=== PATIENT | female | born 1965 | race Caucasian/White ===

== ENCOUNTER 2021-01-27 10:27 | Outpatient (REF) | payer OTHER, SELFPAY ==
[2021-01-27 11:38] LABS: MANUAL DIFF FLAG NO
[2021-01-27 11:46] LABS: Basophils Percent Auto 0.3 % (0-2); Eosinophils Absolute Auto 0.1 X10*3/uL (0.0-0.4); Eosinophils Percent Auto 1.6 % (0-4); Hematocrit 44.2 % (37-47); Hemoglobin 14.4 g/dl (12.0-16.0); Imm Gran Abs Auto 0.02 X10*3/uL (0.00-0.03); Imm Gran Pct Auto 0.3 % (0.0-0.4); Lymphocytes Absolute Auto 2.3 X10*3/uL (1.2-4.9); Lymphocytes Percent Auto 33.4 % (20-40); Mean Corpuscular HGB Conc 32.6 g/dl (31.0-35.0); Mean Corpuscular Volume 82.9 fL (80-98); Monocytes Absolute Auto 0.4 X10*3/uL (0.1-1.2); Monocytes Percent Auto 5.4 % (2-11); Neutrophils Absolute Auto 4.1 X10*3/uL (2.0-8.3); Platelet Count 218 X10*3/uL (160-400); Red Blood Count 5.33 X10*6/uL (4.20-5.50); Red Cell Distribution Width 14.7 % (11.0-16.0); White Blood Count 6.9 X10*3/uL (4.8-10.8)
[2021-01-27 11:46] LABS: Appearance Urine CLEAR; Color Urine YELLOW; Glucose Urine UA NEG (NEG); Leukocyte Esterase Urine NEG (NEG); Nitrite Urine NEG (NEG); PH 5.5 (5.0-8.0); Specific Gravity - Urine 1.025 (1.005-1.025); Urine Blood NEG (NEG); Urine Ketones NEG (NEG); Urine Protein NEG (NEG-TRACE)
[2021-01-27 12:08] LABS: Alanine Aminotransferase 10 U/L (0-31); Alkaline Phosphatase 108 U/L (39-117); Anion Gap 15 (12-20); Aspartate Amino Transferase 13 U/L (5-31); Bilirubin Total 0.5 mg/dL (0.0-1.0); Blood Urea Nitrogen 17 mg/dL (9-16); Carbon Dioxide 26 mmol/L (22-29); Chloride 106 mmol/L (96-108); Cholesterol 240 mg/dL; Estimated Glomerular Filt Rate > 60; Glucose Fasting 86 mg/dL (60-99); HDL Cholesterol 45 mg/dL; LDL Cholesterol Calculated 176 mg/dl; Potassium 4.5 mmol/L (3.3-5.1); Sodium 142 mmol/L (135-145); Total Protein 7.2 g/dL (6.5-8.0); Triglycerides 99 mg/dL
[2021-01-27 12:19] LABS: Creatinine Urine 99.88 mg/dL
[2021-01-27 12:32] LABS: TSH reflex Free T4 0.98 uIU/mL (0.32-4.0); Vitamin D 25-OH Total 27.3 ng/mL (>30)
== END 2021-01-27 10:28 | disposition home or self-care (01) ==
LOC: HO.LAB 10:27
PROVIDERS: Absent Provider Internal Medicine Cardiovascular Disease; PCP Internal Medicine; Visit Provider Internal Medicine
DX: E11.22 Type 2 diabetes mellitus with diabetic chronic kidney disease (principal); K59.00 Constipation, unspecified; N18.2 Chronic kidney disease, stage 2 (mild); E66.01 Morbid (severe) obesity due to excess calories; Z68.42 Body mass index [BMI] 45.0-49.9, adult; E55.9 Vitamin D deficiency, unspecified; J45.20 Mild intermittent asthma, uncomplicated; Z79.4 Long term (current) use of insulin
CPT/HCPCS: 36415; 80053; 80061; 81003; 82043; 82306; 84443; 85025

== ENCOUNTER 2021-02-17 16:37 | Outpatient (REF) | payer OTHER, SELFPAY ==
--- NOTE | ~2021-02-17 | XR_ITS ---
EXAMINATION: XR SHOULDER, BILATERAL CLINICAL INFORMATION: Bilateral shoulder pain. COMPARISON: None TECHNIQUE: Right shoulder 3 views. Left shoulder 3 views. FINDINGS: RIGHT SHOULDER: There is severe loss of right glenohumeral shoulder joint space with moderate periarticular inferior spurring. There is loss of AC joint space as well with periarticular spurring. There is no visible acute fracture, dislocation or lytic process. The soft tissues are normal. LEFT SHOULDER: There is severe loss of left glenohumeral joint space with subchondral cystic changes. Mild loss of left AC joint is noted as well. Small subchondral cystic changes are seen. The soft tissues are normal. XR/XR shoulder RT min 2V IMPRESSION: Severe degenerative arthritic changes bilateral glenohumeral and AC joints. No visible fracture, dislocation or loose bodies. No bony erosive changes.
--- NOTE | ~2021-02-17 | XR_ITS ---
EXAMINATION: XR SHOULDER, BILATERAL CLINICAL INFORMATION: Bilateral shoulder pain. COMPARISON: None TECHNIQUE: Right shoulder 3 views. Left shoulder 3 views. FINDINGS: RIGHT SHOULDER: There is severe loss of right glenohumeral shoulder joint space with moderate periarticular inferior spurring. There is loss of AC joint space as well with periarticular spurring. There is no visible acute fracture, dislocation or lytic process. The soft tissues are normal. LEFT SHOULDER: There is severe loss of left glenohumeral joint space with subchondral cystic changes. Mild loss of left AC joint is noted as well. Small subchondral cystic changes are seen. The soft tissues are normal. XR/XR shoulder LT min 2V IMPRESSION: Severe degenerative arthritic changes bilateral glenohumeral and AC joints. No visible fracture, dislocation or loose bodies. No bony erosive changes.
== END 2021-02-17 16:38 | disposition home or self-care (01) ==
LOC: HO.XRAY 16:37
PROVIDERS: PCP Internal Medicine; Visit Provider Internal Medicine
DX: M25.511 Pain in right shoulder (principal); M25.512 Pain in left shoulder
CPT/HCPCS: 73030

== ENCOUNTER 2021-04-05 15:34 | Outpatient (REF) | payer OTHER, SELFPAY ==
--- NOTE | ~2021-04-05 | MM_ITS ---
EXAMINATION: MM SCREENING DIGITAL BREAST TOMOSYNTHESIS, BILATERAL CLINICAL INFORMATION: Screening. Asymptomatic. The lifetime risk of breast cancer based on the Tyrer-Cuzick Model is 6%. COMPARISON: Mammography: 08/11/2019, 07/10/2018 TECHNIQUE: Digital breast tomosynthesis is performed in both the craniocaudal and mediolateral oblique views along with computer-aided detection (CAD). Synthesized 2D images are generated from the tomosynthesis. Additional views are obtained: Right CC, right MLO x2, left exaggerated CC, left MLO. FINDINGS: The breasts are almost entirely fatty (ACR BI-RADS breast composition Category a). Background stromal markings are similar to prior studies. There is an intramammary node again seen mid 9:00 right breast. There is no significant mass or architectural abnormality. No abnormal calcifications. The axilla are unremarkable. No significant changes from prior exams. MM/MM tomosynthesis screening BI IMPRESSION: No mammographic evidence of malignancy. ASSESSMENT: BI-RADS 1: Negative RECOMMENDATION: Routine annual mammography screening. This patient's information was entered into a reminder system with a target due date for their next mammogram.
== END 2021-04-05 15:35 | disposition home or self-care (01) ==
LOC: HO.MAMMO 15:34
PROVIDERS: Visit Provider Internal Medicine
DX: Z12.31 Encounter for screening mammogram for malignant neoplasm of breast (principal)
CPT/HCPCS: 77063; 77067

== ENCOUNTER → 2021-07-04 19:24 | Outpatient (REF) | payer OTHER, MEDICAID, SELFPAY | LOC: HO.SL 19:24 | PROVIDERS: Visit Provider Internal Medicine | DX: G47.33 Obstructive sleep apnea (adult) (pediatric) (principal); Z99.89 Dependence on other enabling machines and devices | CPT/HCPCS: 95810 ==

== ENCOUNTER → 2021-07-21 13:56 | Outpatient (BNVA) | payer OTHER, SELFPAY | PROVIDERS: PCP Internal Medicine; Visit Provider Internal Medicine Pulmonary Disease | DX: G47.33 Obstructive sleep apnea (adult) (pediatric) (principal); G47.00 Insomnia, unspecified | CPT/HCPCS: 99202 ==

== ENCOUNTER 2021-11-10 10:23 | Outpatient (REF) | payer OTHER, SELFPAY ==
[2021-11-10 10:52] LABS: MANUAL DIFF FLAG NO
[2021-11-10 10:59] LABS: Basophils Percent Auto 0.3 % (0-2); Eosinophils Absolute Auto 0.1 X10*3/uL (0.0-0.4); Eosinophils Percent Auto 1.4 % (0-4); Hemoglobin 14.6 g/dl (12.0-16.0); Imm Gran Abs Auto 0.01 X10*3/uL (0.00-0.03); Imm Gran Pct Auto 0.1 % (0.0-0.4); Lymphocytes Absolute Auto 2.3 X10*3/uL (1.2-4.9); Lymphocytes Percent Auto 31.1 % (20-40); Mean Corpuscular HGB Conc 32.4 g/dl (31.0-35.0); Mean Corpuscular Hemoglobin 27.1 pg (27.0-33.0); Mean Corpuscular Volume 83.5 fL (80.0-98.0); Mean Platelet Volume 10.4 fL (9.4-12.3); Monocytes Absolute Auto 0.5 X10*3/uL (0.1-1.2); Monocytes Percent Auto 6.3 % (2-11); Neutrophils Absolute Auto 4.4 x10*3/uL (2.0-8.3); Neutrophils Percent Auto 60.8 % (45-73); Platelet Count 215 X10*3/uL (160-400); Red Blood Count 5.39 X10*6/uL (4.20-5.50); Red Cell Distribution Width 13.9 % (11.0-16.0); White Blood Count 7.3 X10*3/uL (4.8-10.8)
[2021-11-10 11:19] LABS: Estimated Average Glucose 103 mg/dL; Hemoglobin A1c % 5.2 %
[2021-11-10 11:30] LABS: Appearance Urine CLEAR; Color Urine YELLOW; Glucose Urine UA NEG (NEG); Nitrite Urine NEG (NEG); PH 5.5 (5.0-8.0); Specific Gravity - Urine >= 1.030 (1.005-1.025); Urine Blood NEG (NEG); Urine Ketones NEG (NEG); Urine Protein NEG (NEG-TRACE)
[2021-11-10 11:31] LABS: Leukocyte Esterase Urine NEG (NEG)
[2021-11-10 11:33] LABS: Erythrocyte Sedimentation Rate 28 MM/HR (0-20)
[2021-11-10 11:37] LABS: Alanine Aminotransferase 14 U/L (0-31); Albumin Level 3.8 g/dL (3.5-5.0); Alkaline Phosphatase 99 U/L (39-117); Anion Gap 11 (12-20); Aspartate Amino Transferase 17 U/L (5-31); Bilirubin Total 0.5 mg/dL (0.0-1.0); Blood Urea Nitrogen 11 mg/dL (9-16); Calcium 9.2 mg/dL (8.4-10.2); Carbon Dioxide 28 mmol/L (22-29); Chloride 109 mmol/L (96-108); Cholesterol 214 mg/dL; Estimated Glomerular Filt Rate > 60; Glucose Fasting 95 mg/dL (60-99); HDL Cholesterol 42 mg/dL; LDL Cholesterol Calculated 146 mg/dl; Potassium 4.3 mmol/L (3.3-5.1); Sodium 144 mmol/L (135-145); Total Protein 7.2 g/dL (6.5-8.0); Triglycerides 132 mg/dL
[2021-11-10 11:54] LABS: Creatinine Urine 110.24 mg/dL; Microalbum/Creatinine Ratio Ur 11.7 ug/mg cr
[2021-11-10 11:57] LABS: TSH reflex Free T4 1.08 uIU/mL (0.32-4.0); Vitamin D 25-OH Total 25.8 ng/mL (>30)
== END 2021-11-10 10:24 | disposition home or self-care (01) ==
LOC: HO.LAB 10:23
PROVIDERS: PCP Internal Medicine; Visit Provider Internal Medicine
DX: E11.22 Type 2 diabetes mellitus with diabetic chronic kidney disease (principal); N18.2 Chronic kidney disease, stage 2 (mild); E78.00 Pure hypercholesterolemia, unspecified; G47.33 Obstructive sleep apnea (adult) (pediatric); J45.20 Mild intermittent asthma, uncomplicated; K59.00 Constipation, unspecified; E66.01 Morbid (severe) obesity due to excess calories; Z68.42 Body mass index [BMI] 45.0-49.9, adult; E55.9 Vitamin D deficiency, unspecified; M25.511 Pain in right shoulder; M25.512 Pain in left shoulder; M89.49 Other hypertrophic osteoarthropathy, multiple sites; Z79.4 Long term (current) use of insulin
CPT/HCPCS: 36415; 80053; 80061; 81003; 82043; 82306; 83036; 84443; 85025; 85652

== ENCOUNTER 2022-01-27 09:00 | Outpatient (REF) | payer OTHER, SELFPAY ==
[2022-01-27 10:14] LABS: Estimated Average Glucose 103 mg/dL; Hemoglobin A1c % 5.2 %
[2022-01-27 10:24] LABS: Alanine Aminotransferase 12 U/L (0-31); Albumin Level 3.8 g/dL (3.5-5.0); Alkaline Phosphatase 91 U/L (39-117); Anion Gap 13 (12-20); Aspartate Amino Transferase 15 U/L (5-31); Bilirubin Total 0.6 mg/dL (0.0-1.0); Blood Urea Nitrogen 14 mg/dL (9-16); Calcium 8.9 mg/dL (8.4-10.2); Carbon Dioxide 26 mmol/L (22-29); Chloride 106 mmol/L (96-108); Cholesterol 238 mg/dL; Estimated Glomerular Filt Rate > 60; Glucose Fasting 92 mg/dL (60-99); HDL Cholesterol 41 mg/dL; LDL Cholesterol Calculated 171 mg/dl; Sodium 141 mmol/L (135-145); Triglycerides 132 mg/dL
== END 2022-01-27 09:01 | disposition home or self-care (01) ==
LOC: HO.LAB 09:00
PROVIDERS: PCP Internal Medicine; Visit Provider Internal Medicine
DX: E78.00 Pure hypercholesterolemia, unspecified (principal); E11.9 Type 2 diabetes mellitus without complications
CPT/HCPCS: 36415; 80053; 80061; 83036

== ENCOUNTER 2022-04-13 15:22 | Outpatient (REF) | payer OTHER, SELFPAY ==
--- NOTE | ~2022-04-13 | MM_ITS ---
EXAMINATION: MM SCREENING DIGITAL BREAST TOMOSYNTHESIS, BILATERAL CLINICAL INFORMATION: Screening. Asymptomatic. The lifetime risk of breast cancer based on the Tyrer-Cuzick Model is 7%. COMPARISON: Mammography: 04/05/2021, 08/11/2019, 07/10/2018 TECHNIQUE: Digital breast tomosynthesis is performed in both the craniocaudal and mediolateral oblique views along with computer-aided detection (CAD). Synthesized 2D images are generated from the tomosynthesis. Additional bilateral CC, bilateral MLO, and lateral right cleavage view are provided. FINDINGS: The breasts are almost entirely fatty (ACR BI-RADS breast composition Category a). There are no significant masses, abnormal calcifications, or other abnormalities. Background stromal markings are stable. There is incidental intramammary node mid 9:00 right breast. No architectural abnormality. The skin contours are smooth. MM/MM tomosynthesis screening BI IMPRESSION: No mammographic evidence of malignancy. ASSESSMENT: BI-RADS 1: Negative RECOMMENDATION: Routine annual mammography screening. This patient's information was entered into a reminder system with a target due date for their next mammogram.
== END 2022-04-13 15:23 | disposition home or self-care (01) ==
LOC: HO.MAMMO 15:22
PROVIDERS: Visit Provider Internal Medicine
DX: Z12.31 Encounter for screening mammogram for malignant neoplasm of breast (principal)
CPT/HCPCS: 77063; 77067

== ENCOUNTER 2022-07-07 09:53 | Outpatient (REF) | payer OTHER, SELFPAY ==
[2022-07-07 10:10] LABS: MANUAL DIFF FLAG NO
[2022-07-07 10:40] LABS: Basophils Percent Auto 0.6 % (0-2); Eosinophils Absolute Auto 0.1 X10*3/uL (0.0-0.4); Eosinophils Percent Auto 1.8 % (0-4); Hematocrit 46.2 % (37.0-47.0); Imm Gran Abs Auto 0.02 X10*3/uL (0.00-0.03); Imm Gran Pct Auto 0.3 % (0.0-0.4); Mean Corpuscular HGB Conc 32.5 g/dl (31.0-35.0); Mean Corpuscular Hemoglobin 27.3 pg (27.0-33.0); Mean Corpuscular Volume 84.2 fL (80.0-98.0); Mean Platelet Volume 10.8 fL (9.4-12.3); Monocytes Absolute Auto 0.4 X10*3/uL (0.1-1.2); Monocytes Percent Auto 6.1 % (2-11); Neutrophils Absolute Auto 4.5 x10*3/uL (2.0-8.3); Neutrophils Percent Auto 63.2 % (45-73); Platelet Count 210 X10*3/uL (160-400); Red Blood Count 5.49 X10*6/uL (4.20-5.50)
[2022-07-07 10:47] LABS: Estimated Average Glucose 105 mg/dL; Hemoglobin A1c % 5.3 %
[2022-07-07 10:50] LABS: Appearance Urine Clear; Color Urine Yellow; Glucose Urine UA Negative (Negative); Leukocyte Esterase Urine Negative (Negative); Nitrite Urine Negative (Negative); Urine Blood Negative (Negative); Urine Ketones Negative (Negative); Urine Protein Negative (Neg-Trace)
[2022-07-07 11:10] LABS: Creatinine Urine 87.23 mg/dL; Microalbum/Creatinine Ratio Ur 13.7 ug/mg cr
[2022-07-07 11:13] LABS: Alanine Aminotransferase 15 U/L (0-31); Alkaline Phosphatase 100 U/L (39-117); Anion Gap 16 (12-20); Aspartate Amino Transferase 15 U/L (5-31); Blood Urea Nitrogen 13 mg/dL (9-16); Calcium 9.5 mg/dL (8.4-10.2); Carbon Dioxide 26 mmol/L (22-29); Chloride 107 mmol/L (96-108); Cholesterol 190 mg/dL; Estimated Glomerular Filt Rate > 60; Glucose Fasting 95 mg/dL (60-99); HDL Cholesterol 44 mg/dL; LDL Cholesterol Calculated 126 mg/dl; Potassium 4.8 mmol/L (3.3-5.1); Sodium 144 mmol/L (135-145); Total Protein 7.3 g/dL (6.5-8.0); Triglycerides 101 mg/dL
[2022-07-07 11:31] LABS: Bilirubin Total 0.6 mg/dL (0.0-1.0)
[2022-07-07 11:36] LABS: TSH reflex Free T4 1.01 uIU/mL (0.32-4.0); Vitamin D 25-OH Total 24.6 ng/mL (>30)
== END 2022-07-07 09:54 | disposition home or self-care (01) ==
LOC: HO.LAB 09:53
PROVIDERS: PCP Internal Medicine; Visit Provider Internal Medicine
DX: E55.9 Vitamin D deficiency, unspecified (principal); I10 Essential (primary) hypertension; E78.00 Pure hypercholesterolemia, unspecified; E11.9 Type 2 diabetes mellitus without complications
CPT/HCPCS: 36415; 80053; 80061; 81003; 82043; 82306; 83036; 84443; 85025

== ENCOUNTER 2022-11-03 09:21 | Outpatient (REF) | payer OTHER, SELFPAY ==
[2022-11-03 10:02] LABS: MANUAL DIFF FLAG NO
[2022-11-03 11:08] LABS: Basophils Percent Auto 0.4 % (0-2); Eosinophils Absolute Auto 0.1 X10*3/uL (0.0-0.4); Eosinophils Percent Auto 1.4 % (0-4); Hemoglobin 14.5 g/dl (12.0-16.0); Imm Gran Abs Auto 0.01 X10*3/uL (0.00-0.03); Imm Gran Pct Auto 0.1 % (0.0-0.4); Lymphocytes Absolute Auto 2.2 X10*3/uL (1.2-4.9); Lymphocytes Percent Auto 30.8 % (20-40); Mean Corpuscular HGB Conc 32.2 g/dl (31.0-35.0); Mean Corpuscular Hemoglobin 27.3 pg (27.0-33.0); Mean Corpuscular Volume 84.6 fL (80.0-98.0); Mean Platelet Volume 10.9 fL (9.4-12.3); Monocytes Absolute Auto 0.4 X10*3/uL (0.1-1.2); Monocytes Percent Auto 6.2 % (2-11); Neutrophils Absolute Auto 4.3 x10*3/uL (2.0-8.3); Neutrophils Percent Auto 61.1 % (45-73); Platelet Count 209 X10*3/uL (160-400); Red Blood Count 5.32 X10*6/uL (4.20-5.50)
[2022-11-03 11:12] LABS: Estimated Average Glucose 103 mg/dL; Hemoglobin A1c % 5.2 %
[2022-11-03 11:16] LABS: Appearance Urine Clear; Color Urine Yellow; Glucose Urine UA Negative (Negative); Leukocyte Esterase Urine Negative (Negative); Nitrite Urine Negative (Negative); PH 5.5 (5.0-9.0); Urine Blood Negative (Negative); Urine Ketones Negative (Negative); Urine Protein Negative (Neg-Trace)
[2022-11-03 11:36] LABS: Creatinine Urine 80.44 mg/dL; Microalbum/Creatinine Ratio Ur 14.9 ug/mg cr
[2022-11-03 12:00] LABS: Alanine Aminotransferase 14 U/L (0-31); Albumin Level 3.8 g/dL (3.5-5.0); Alkaline Phosphatase 96 U/L (39-117); Anion Gap 15 (12-20); Aspartate Amino Transferase 17 U/L (5-31); Bilirubin Total 0.5 mg/dL (0.0-1.0); Blood Urea Nitrogen 18 mg/dL (9-16); Calcium 8.9 mg/dL (8.4-10.2); Carbon Dioxide 25 mmol/L (22-29); Chloride 107 mmol/L (96-108); Cholesterol 192 mg/dL; Estimated Glomerular Filt Rate > 60; Glucose Fasting 84 mg/dL (60-99); HDL Cholesterol 45 mg/dL; LDL Cholesterol Calculated 125 mg/dl; Potassium 4.8 mmol/L (3.3-5.1); Sodium 142 mmol/L (135-145); Triglycerides 113 mg/dL; Vitamin D 25-OH Total 23.7 ng/mL (>30)
== END 2022-11-03 09:22 | disposition home or self-care (01) ==
LOC: HO.LAB 09:21
PROVIDERS: PCP Internal Medicine; Visit Provider Internal Medicine
DX: E78.00 Pure hypercholesterolemia, unspecified (principal); E11.9 Type 2 diabetes mellitus without complications; E55.9 Vitamin D deficiency, unspecified; I10 Essential (primary) hypertension
CPT/HCPCS: 36415; 80053; 80061; 81003; 82043; 82306; 83036; 84443; 85025

== ENCOUNTER 2023-03-09 08:45 | Outpatient (REF) | payer OTHER, SELFPAY ==
[2023-03-09 08:59] LABS: MANUAL DIFF FLAG NO
[2023-03-09 09:16] LABS: Basophils Percent Auto 0.3 % (0-2); Eosinophils Absolute Auto 0.1 X10*3/uL (0.0-0.4); Eosinophils Percent Auto 1.5 % (0-4); Hematocrit 46.1 % (37.0-47.0); Hemoglobin 14.9 g/dl (12.0-16.0); Imm Gran Abs Auto 0.03 X10*3/uL (0.00-0.03); Imm Gran Pct Auto 0.3 % (0.0-0.4); Lymphocytes Absolute Auto 2.7 X10*3/uL (1.2-4.9); Lymphocytes Percent Auto 29.5 % (20-40); Mean Corpuscular HGB Conc 32.3 g/dl (31.0-35.0); Mean Corpuscular Hemoglobin 27.4 pg (27.0-33.0); Mean Corpuscular Volume 84.9 fL (80.0-98.0); Mean Platelet Volume 10.7 fL (9.4-12.3); Monocytes Absolute Auto 0.6 X10*3/uL (0.1-1.2); Monocytes Percent Auto 6.2 % (2-11); Neutrophils Absolute Auto 5.7 x10*3/uL (2.0-8.3); Neutrophils Percent Auto 62.2 % (45-73); Platelet Count 206 X10*3/uL (160-400); Red Blood Count 5.43 X10*6/uL (4.20-5.50); Red Cell Distribution Width 14.1 % (11.0-16.0); White Blood Count 9.2 X10*3/uL (4.8-10.8)
[2023-03-09 09:40] LABS: Estimated Average Glucose 103 mg/dL; Hemoglobin A1c % 5.2 %
[2023-03-09 09:46] LABS: Alanine Aminotransferase 15 U/L (0-31); Albumin Level 4.1 g/dL (3.5-5.0); Alkaline Phosphatase 102 U/L (39-117); Anion Gap 15 (12-20); Aspartate Amino Transferase 16 U/L (5-31); Bilirubin Total 0.6 mg/dL (0.0-1.0); Blood Urea Nitrogen 20 mg/dL (9-16); Calcium 9.3 mg/dL (8.4-10.2); Carbon Dioxide 27 mmol/L (22-29); Chloride 106 mmol/L (96-108); Cholesterol 209 mg/dL; Estimated Glomerular Filt Rate > 60; Glucose Fasting 93 mg/dL (60-99); HDL Cholesterol 48 mg/dL; LDL Cholesterol Calculated 134 mg/dl; Potassium 4.7 mmol/L (3.3-5.1); Sodium 143 mmol/L (135-145); Total Protein 7.6 g/dL (6.5-8.0); Triglycerides 136 mg/dL
[2023-03-09 10:08] LABS: TSH reflex Free T4 2.24 uIU/mL (0.32-4.0); Vitamin D 25-OH Total 33.3 ng/mL (>30)
[2023-03-09 10:14] LABS: Appearance Urine Clear; Color Urine Yellow; Glucose Urine UA Negative (Negative); Leukocyte Esterase Urine Negative (Negative); Nitrite Urine Negative (Negative); PH 5.5 (5.0-9.0); Urine Blood Negative (Negative); Urine Ketones Negative (Negative); Urine Protein Negative (Neg-Trace)
[2023-03-09 10:29] LABS: Creatinine Urine 85.75 mg/dL; Microalbum/Creatinine Ratio Ur 15.1 ug/mg cr
== END 2023-03-09 08:46 | disposition home or self-care (01) ==
LOC: HO.LAB 08:45
PROVIDERS: PCP Internal Medicine; Visit Provider Internal Medicine
DX: E78.00 Pure hypercholesterolemia, unspecified (principal); E11.9 Type 2 diabetes mellitus without complications; E55.9 Vitamin D deficiency, unspecified; I10 Essential (primary) hypertension; R30.0 Dysuria
CPT/HCPCS: 36415; 80053; 80061; 81003; 82043; 82306; 83036; 84443; 85025

== ENCOUNTER 2023-06-19 15:28 | Outpatient (REF) | payer OTHER, SELFPAY ==
--- NOTE | ~2023-06-19 | MM_ITS ---
EXAMINATION: MM SCREENING DIGITAL BREAST TOMOSYNTHESIS, BILATERAL CLINICAL INFORMATION: Screening. Asymptomatic. COMPARISON: Mammography: This study is compared with prior exams dating back to 2016. TECHNIQUE: Digital breast tomosynthesis is performed in both the craniocaudal and mediolateral oblique views along with computer-aided detection (CAD). Synthesized 2D images are generated from the tomosynthesis. FINDINGS: The breasts are almost entirely fatty (ACR BI-RADS breast composition Category a). There are no significant masses, abnormal calcifications, or other abnormalities. MM/MM tomosynthesis screening BI IMPRESSION: No mammographic evidence of malignancy. ASSESSMENT: BI-RADS BI-RADS 1 - Negative RECOMMENDATION: Routine annual mammography screening. 1 year F/U This examination should not preclude the clinical evaluation of a suspicious palpable abnormality. This patient's information was entered into a reminder system with a target due date for their next mammogram.
== END 2023-06-19 15:29 | disposition home or self-care (01) ==
LOC: HO.MAMMO 15:28
PROVIDERS: PCP Internal Medicine; Visit Provider Internal Medicine
DX: Z12.31 Encounter for screening mammogram for malignant neoplasm of breast (principal)
CPT/HCPCS: 77063; 77067

== ENCOUNTER → 2023-06-19 16:00 | Outpatient (BNV) | payer OTHER, SELFPAY | PROVIDERS: PCP Internal Medicine; Visit Provider Radiology Diagnostic Radiology | DX: Z12.31 Encounter for screening mammogram for malignant neoplasm of breast (principal) | CPT/HCPCS: 77063; 77067 ==

== ENCOUNTER 2023-07-06 09:53 | Outpatient (REF) | payer OTHER, SELFPAY ==
[2023-07-06 10:34] LABS: MANUAL DIFF FLAG NO
[2023-07-06 10:54] LABS: Basophils Percent Auto 0.4 % (0-2); Eosinophils Absolute Auto 0.1 X10*3/uL (0.0-0.4); Eosinophils Percent Auto 1.7 % (0-4); Hematocrit 45.4 % (37.0-47.0); Hemoglobin 14.5 g/dl (12.0-16.0); Imm Gran Abs Auto 0.02 X10*3/uL (0.00-0.03); Imm Gran Pct Auto 0.3 % (0.0-0.4); Lymphocytes Absolute Auto 2.1 X10*3/uL (1.2-4.9); Mean Corpuscular HGB Conc 31.9 g/dl (31.0-35.0); Mean Corpuscular Hemoglobin 27.3 pg (27.0-33.0); Mean Corpuscular Volume 85.3 fL (80.0-98.0); Mean Platelet Volume 10.7 fL (9.4-12.3); Monocytes Absolute Auto 0.6 X10*3/uL (0.1-1.2); Monocytes Percent Auto 7.8 % (2-11); Neutrophils Absolute Auto 4.2 x10*3/uL (2.0-8.3); Neutrophils Percent Auto 59.8 % (45-73); Platelet Count 211 X10*3/uL (160-400); Red Blood Count 5.32 X10*6/uL (4.20-5.50); Red Cell Distribution Width 14.6 % (11.0-16.0); White Blood Count 7.1 X10*3/uL (4.8-10.8)
[2023-07-06 11:06] LABS: Appearance Urine Clear; Color Urine Yellow; Glucose Urine UA Negative (Negative); Leukocyte Esterase Urine Trace (Negative); Nitrite Urine Negative (Negative); PH 5.5 (5.0-9.0); UMIC TRIGGER UACC YES; Urine Blood Negative (Negative); Urine Ketones Negative (Negative); Urine Protein Negative (Neg-Trace)
[2023-07-06 11:11] LABS: Estimated Average Glucose 108 mg/dL; Hemoglobin A1c % 5.4 % (<6.0)
[2023-07-06 11:12] LABS: Bacteria Urine Trace (None Seen); Hyaline Casts Urine 0-2 /LPF (0-2); RBC Urine 0-2 /HPF (0-2); WBC Urine 0-5 /HPF (0-5)
[2023-07-06 11:39] LABS: Creatinine Urine 120.31 mg/dL; Microalbum/Creatinine Ratio Ur 14.9 ug/mg cr (<30)
[2023-07-06 11:48] LABS: Alanine Aminotransferase 14 U/L (0-31); Alkaline Phosphatase 91 U/L (39-117); Anion Gap 16 (12-20); Aspartate Amino Transferase 17 U/L (5-31); Bilirubin Total 0.4 mg/dL (0.0-1.0); Blood Urea Nitrogen 16 mg/dL (9-16); Calcium 9.1 mg/dL (8.4-10.2); Carbon Dioxide 24 mmol/L (22-29); Chloride 109 mmol/L (96-108); Cholesterol 201 mg/dL (<200); Estimated Glomerular Filt Rate > 60; Glucose Fasting 103 mg/dL (60-99); HDL Cholesterol 47 mg/dL (>40); LDL Cholesterol Calculated 133 mg/dL (<100); Potassium 4.7 mmol/L (3.3-5.1); Sodium 144 mmol/L (135-145); Total Protein 7.8 g/dL (6.5-8.0); Triglycerides 108 mg/dL (<150)
[2023-07-06 11:52] LABS: TSH reflex Free T4 1.67 uIU/mL (0.32-4.0); Vitamin D 25-OH Total 38.6 ng/mL (>30)
== END 2023-07-06 09:54 | disposition home or self-care (01) ==
LOC: HO.LAB 09:53
PROVIDERS: PCP Internal Medicine; Visit Provider Internal Medicine
DX: E78.00 Pure hypercholesterolemia, unspecified (principal); E11.9 Type 2 diabetes mellitus without complications; I10 Essential (primary) hypertension; E55.9 Vitamin D deficiency, unspecified; R30.0 Dysuria
CPT/HCPCS: 36415; 80053; 80061; 81001; 81003; 82043; 82306; 82570; 83036; 84443; 85025

== ENCOUNTER 2023-07-09 15:34 | Outpatient (AMB) | payer OTHER, SELFPAY ==
[2023-07-09 15:44] VITALS: BP 122/80; PULSE 80; O2SAT 99; BMI 52.8
--- NOTE | 2023-07-09 15:44 | MHC.PC.OV ---
Vital Signs 07/09/23 15:44 Height 5 ft 3 in Weight 298 lb BMI 52.8 BP 122/80 Blood Pressure Location Lt brachial Position Sitting Pulse 80 Pulse Source Pulse Oximeter Pulse Oximetry (%) 99 Oxygen Delivery Method Room Air Intake Visit Reasons: [facility] - Urine and Kidney Infection Cashier Associate Required: No Accompanied by: Self / Same As Patient Allergies aspirin [ASA] Allergy (Unknown, Verified 07/09/23 18:56) RASH ,SWELLING atorvastatin Allergy (Unknown, Verified 07/09/23 18:56) constipation ibuprofen [Advil] Allergy (Unknown, Verified 07/09/23 18:56) Unknown Medication List - Last Reconciled 07/09/23 by Turner Mccormack MD albuterol sulfate 90 mcg/actuation (ProAir HFA) 2 inhalations inhalation QID PRN 30 days albuterol sulfate 90 mcg/actuation (Ventolin HFA) 1 inh inhalation QID PRN blood sugar diagnostic (FreeStyle Lite Strips) TEST 3 TIMES A DAY - E11.9 blood-glucose meter (FreeStyle [place] Lite kit) freestyle lite lancets cholecalciferol (vitamin D3) 25 mcg PO DAILY 90 days [CPAP Device and all related accessories As directed] [CPAP DEVICE and ALL RELATED ACCESSORIES As directed - Pressure Settings to start at 4 cm and gradually increase to 14 cm] Humalog KwikPen Insulin (insulin lispro) 1 sliding scale dose subcut QIDACHS NS hydrocortisone 2.5% 1 appl topical BID PRN insulin glargine (Lantus Solostar U-100 Insulin) 10 units (0.1 mL) subcut DAILY insulin syr/ndl U100 half mayuri As directed lancets (FreeStyle Lancets) As directed 3 times a day melatonin 10 mg PO BEDTIME PRN 30 days Novolog FlexPen U-100 Insulin (insulin aspart U-100) Inject DIRECTED (dosed according to sliding scale) 4 times a day with meals and at bedtime PER SLIDING SCALE 125 - 150 2 units Insulin subq 151 - 200 4 units Insulin subq 201 - 250 6 units Insulin subq 251 - 300 8 units Insulin subq 301 - 350 10 units Insulin subq 351 - 400 12 units Insulin subq 30 days NS olopatadine 0.2% (Pataday Once Daily Relief) 1 drp ophthalmic (eye) DAILY pantoprazole 40 mg PO DAILY 90 days pen needle, diabetic USE 4 TIMES A DAY semaglutide (Ozempic) 0.5 mg (0.4 mL) subcut QWEEK 12 weeks [SHOWER CHAIR (extra-large/heavy duty) As directed] simvastatin 20 mg PO BEDTIME 90 days tizanidine 4 mg PO Q8H PRN 10 days tramadol 50 mg PO TID PRN 30 days Tobacco use date assessed: 07/09/23 Dental Screening Dental Screen Date: 07/09/23 Did you have a dental visit in the last 12 months?: Yes Did you have a dental problem in the last 6 months where you did not have access to dental care?: No Was dental information given to patient?: Patient has dentist HPI [facility] - Urine and Kidney Infection HPI Details Patient comes in today for her HDF follow up visit States that she was supposed to come in for her HDF follow up visit earlier this month but was told that she did not have an appointment scheduled when she came in then and could not get in until today She was admitted to [facility] early last month from 05/18/23 to 05/21/23 for acute pyelonephritis and sepsis secondary to UTI when she presented to the ER there with worsening urinary tract symptoms She was initially started on IV Abx and this was later transitioned to oral Abx preceding her discharge from the hospital, when her symptoms gradually improved with medical management She was eventually discharged home on Augmentin 875 mg BID x 7 days, which she completed without any issues States that she has been feeling well since with no other acute problems She currently denies any headaches or dizziness; denies any fever Denies any chest pains, no SOB No nausea/vomiting, no abdominal pain No change in bowel habits noted and she denies any acute urinary symptoms lately Had her follow up labs done a few days ago - to discuss her results States that she was supposed to have them done a little later before her next month's appointment but as her appointment is just about 2 weeks away, is hoping that we can just combine her 2 appointments together for today [facility] Medical History Morbid obesity with BMI of 50.0-59.9, adult GERD without esophagitis Primary osteoarthritis of shoulders, bilateral Obstructive sleep apnea Pure hypercholesterolemia Morbid obesity with BMI of 45.0-49.9, adult Anxiety Constipation Vitamin D deficiency Asthma Osteoarthritis Type 2 diabetes mellitus with diabetic chronic kidney disease (Unknown) Diabetes Surgical History H/O total knee replacement Total knee replacement status History of endometrial ablation History of hand surgery H/O right knee surgery Family History Father Motor vehicle accident Mother Liver cancer Social History Housing: Apartment Alcohol intake: never Patient Tobacco Use Status: Never used Tobacco e-Cigarette/Vaping Use: Never Used Second Hand Smoke Exposure: Yes service: No Current occupational status: disabled Cognitive needs: No Hearing needs: No Vision needs: No Questionnaire PHQ-9 Over the last 2 weeks, how often have you been bothered by any of the following problems? 1. Little interest or pleasure in doing things: not at all 2. Feeling down, depressed, or hopeless: not at all 3. Trouble falling or staying asleep, or sleeping too much: not at all 4. Feeling tired or having little energy: not at all 5. Poor appetite or overeating: not at all 6. Feeling bad about yourself - or that you are a failure or have let yourself or your family down: not at all 7. Trouble concentrating on things, such as reading the newspaper or watching television: not at all 8. Moving or speaking so slowly that other people could have noticed. Or the opposite - being so fidgety or restless that you have been moving around a lot more than usual: not at all 9. Thoughts that you would be better off or of hurting yourself in some way: not at all Total score: 0 Depression Screening Interpretation: Negative 61002 - PHQ-9 Billing: Yes Source: Developed by Drs. Garland Whitaker, Shana Thomas, Josue Thompson and colleagues, with an educational aravind from [employer]. Thrive Questionnaire Date Thrive assessed: 07/09/23 I am a: Patient What is your living situation today?: I have a steady place to live Within the past 12 months, did the food you bought not last and you didn't have the money to get more?: Never true Within the past 12 months, did you worry whether your food would run out before you got money to buy more?: Never true Do you have trouble paying for medicines?: No Do you have trouble getting transportation to medical appointments?: No Do you have trouble paying your heating and electricity bill?: No Do you have trouble taking care of your child, family member or friend?: No Do you have trouble with day-to-day activities such as bathing, preparing meals, shopping, managing finances, etc.?: No Are you currently unemployed and looking for a job?: No Are you interested in more education?: No Please select the resources that you would like help with: None Currently or been in a relationship where the following occur: no concerns reported AUDIT C Alcohol Use Questionnaire (AUDIT-C) 1. How often do you have a drink containing alcohol?: Never 3. How often do you have six or more drinks on one occasion?: Never Total Score: 0 Score Reviewed/Action Taken: Yes JOHN-7 AMB Questionnaire JOHN-7 Date JOHN - 7 assessed: 07/09/23 Feeling nervous, anxious, or on edge: 0 = Not at all Not being able to stop or control worryin = Not at all Worrying too much about different things: 0 = Not at all Trouble relaxin = Not at all Being so restless that it is hard to sit still: 0 = Not at all Becoming easily annoyed or irritable: 0 = Not at all Feeling afraid as if something awful might happen: 0 = Not at all Total JOHN-7 score (0-4 normal; 5-9 mild; 10-14 moderate; 15-21 severe): 0 Source: Developed by Drs. Garland Whitaker, Shana Thomas, Josue Thompson and colleagues, with an educational aravind from [employer]. Review of Systems Const Denies chills, Denies fatigue, Denies fever(s) and Denies headache(s) ENT Denies dysphagia, Denies dizziness, Denies otalgia, Denies headache(s), Denies neck pain, Denies odynophagia and Denies sore throat Card Denies chest pain, Denies palpitations and Denies dyspnea Resp Denies cough and Denies dyspnea GI Denies abdominal pain, Denies constipation, Denies dysphagia, Denies heartburn, Denies diarrhea, Denies nausea, Denies odynophagia and Denies vomiting Denies difficulty voiding, Denies nocturia, Denies dysuria, Denies urinary hesitancy and Denies urinary urgency Musc Reports back pain, Reports arthralgias (knee - on and off; both shoulders - slightly worse on the left side), Reports limited range of motion (of both shoulders) and Denies neck pain Skin/Breast Denies rash Neuro Denies dizziness and Denies headache(s) Endo Denies fatigue and Denies palpitations Physical exam (Primary Care) Vital Signs: Last Vital Signs Pulse 80 07/09/23 15:44 BP 122/80 07/09/23 15:44 Pulse Ox 99 07/09/23 15:44 Oxygen Delivery Method Room Air 07/09/23 15:44 BMI result Body Mass Index 52.8 Tobacco/Smoking Status: Tobacco use Status Tobacco use date assessed 07/09/23 07/09/23 15:46 Patient Tobacco Use Status Never used Tobacco 07/09/23 15:46 e-Cigarette/Vaping Use Never Used 07/09/23 15:46 PHQ-9: PHQ-9 Score PHQ-9: Total score 0 07/09/23 17:17 Depression Screening Interpretation: Negative Thrive Assessment: Date of Thrive Assessment Date Thrive assessed 07/09/23 07/09/23 15:46 Currently or been in a relationship where the following occur: no concerns reported Const General: no acute distress and alert HENMT Ears: TM's normal bilaterally and EAC's normal Throat: Yes posterior oropharynx normal and Yes tonsils normal (no TP congestion noted) Neck Neck: Yes no lymphadenopathy and Yes supple Resp Auscultation: clear to auscultation bilaterally, no rales and no wheezes Cardio Rate: regular rate Rhythm: regular rhythm Heart sounds: no murmurs GI Inspection: Yes Abdominal panniculus present Palpation (GI): Soft to palpation and nontender Auscultation: normal bowel sounds Back/Spine/Pelvis Thoracic/Lumbar Spine: No lumbar spinal tenderness Skin Rashes: no rashes Extrem General: Yes no clubbing, cyanosis or edema Right upper extremity: shoulder/upper arm Details: tenderness Location: of the A-C joint and normal ROM Left upper extremity: shoulder/upper arm Details: tenderness Location: of the A-C joint; ROM limited Right lower extremity: knee Details: tenderness; no swelling Results Reviewed Results Reviewed: Laboratory Tests 07/06/23 07/06/23 07/06/23 10:10 10:10 10:25 WBC 7.1 Hgb 14.5 Hct 45.4 Plt Count 211 Sodium 144 Potassium 4.7 Creatinine 0.78 Estimated GFR > 60 Fasting Glucose 103 H Hemoglobin A1c % 5.4 Calcium 9.1 AST ALT 14 Triglycerides 108 Cholesterol 201 H LDL Cholesterol, Calc 133 H HDL Cholesterol 47 25-OH Vitamin D Total 38.6 TSH 1.67 Ur Specific [place] 1.020 Urine Protein Negative Urine Glucose (UA) Negative Urine Blood Negative Microalb/Creat Ratio 14.9 07/06/23 10:25 WBC Hgb Hct Plt Count Sodium Potassium Creatinine Estimated GFR Fasting Glucose Hemoglobin A1c % Calcium AST 17 ALT Triglycerides Cholesterol LDL Cholesterol, Calc HDL Cholesterol 25-OH Vitamin D Total TSH Ur Specific [place] Urine Protein Urine Glucose (UA) Urine Blood Microalb/Creat Ratio Assessment and Plan Assessment & Plan (1) Pyelonephritis: Code(s): N12 - Tubulo-interstitial nephritis, not specified as acute or chronic Plan: Resolved - S/P Abx Tx Her recent urinalysis done a few days ago shows NO evidence of infection Patient is encouraged to continue to increase her oral fluid intake regularly (2) Pure hypercholesterolemia: Code(s): E78.00 - Pure hypercholesterolemia, unspecified Plan: Results of her labs done a few days ago reviewed and discussed with patient - advised that her cholesterol levels have improved slightly from previous BUT they are not yet at goal Reinforced low cholesterol diet Continue Simvastatin 20 mg QD for now; discussed option of increasing her dosage later on if necessary but patient is hesitant to do this considering her problems with Atorvastatin in the past Will recheck her labs and fasting lipids in 3 months for follow up (3) Type 2 diabetes mellitus with diabetic chronic kidney disease: Onset Date: Unknown Code(s): E11.22 - Type 2 diabetes mellitus with diabetic chronic kidney disease Qualifiers: Chronic kidney disease stage: stage 2 (mild) Diabetes mellitus longterm insulin use: with intermediate project manager use Qualified Code(s): E11.22 - Type 2 diabetes mellitus with diabetic chronic kidney disease; N18.2 - Chronic kidney disease, stage 2 (mild); Z79.4 - intermediate designer (current) use of insulin Plan: HgbA1c was at 5.4% on her labs done a few days ago (was at 5.2% a few months ago) - goal is < 7.0% Reinforced diabetic diet Continue Lantus 20 units SQ Q HS, Ozempic 0.5 mg SQ once a week and Humalog 3 times a day with meals per sliding scale although patient states that she has not needed to take any Humalog for a while now as her blood sugar has remained very well-controlled for several months (4) Asthma: Code(s): J45.909 - Unspecified asthma, uncomplicated Qualifiers: Asthma complication type: uncomplicated Asthma persistence: intermittent Asthma severity: mild Qualified Code(s): J45.20 - Mild intermittent asthma, uncomplicated Plan: Stable - continue ProAir HFA 2 puffs 4 times a day as needed (5) Obstructive sleep apnea: Code(s): G47.33 - Obstructive sleep apnea (adult) (pediatric) Plan: Continue using her CPAP device when sleeping at night Follow up with sleep medicine as scheduled (6) Osteoarthritis: Comment: involving multiple joints Code(s): M19.90 - Unspecified osteoarthritis, unspecified site Qualifiers: Osteoarthritis location: multiple joints Osteoarthritis type: primary Qualified Code(s): M89.49 - Other hypertrophic osteoarthropathy, multiple sites Plan: S/P total right knee arthroplasty on 07/18/2020 and S/P rehab/physical therapy Shoulder x-rays done a couple of years ago revealed (+) significant/severe OA changes in both shoulders Continue Tramadol 50 mg TID PRN for pain Follow-up with Orthopedics as scheduled (7) GERD without esophagitis: Code(s): K21.9 - Gastro-esophageal reflux disease without esophagitis Plan: Dietary restrictions reinforced Continue Pantoprazole 40 mg QD (8) Vitamin D deficiency: Code(s): E55.9 - Vitamin D deficiency, unspecified Plan: Continue Vitamin D3 1000 units QD (9) Constipation: Code(s): K59.00 - Constipation, unspecified Qualifiers: Constipation type: unspecified constipation type Qualified Code(s): K59.00 - Constipation, unspecified Plan: Reinforced increased oral fluids and dietary fiber Continue MiraLax 17 gm QD and Metamucil 2 capsules TID PRN (10) Symptomatic abdominal panniculus: Code(s): E65 - Localized adiposity Plan: Per patient's request, she was referred to [facility] for consideration for panniculectomy previously and she is still awaiting appointment to be seen there Have again cautioned patient that this may not be approved by her insurance; have also advised patient that insurance approval for panniculectomy will often require evidence that she has gone through most of the prerequisite attempts to lose weight and also proven documentation that her significant pannus is associated with a lot of symptoms that are otherwise not correctable with other more conventional measures (11) Anxiety: Code(s): F41.9 - Anxiety disorder, unspecified Plan: Continue Clonazepam 0.5 mg 1/2 to 1 tablet QD PRN and Fluoxetine 10 mg Q AM (12) Morbid obesity with BMI of 50.0-59.9, adult: Code(s): E66.01 - Morbid (severe) obesity due to excess calories; Z68.43 - Body mass index [BMI] 50.0-59.9, adult Plan: Reinforced diet/exercise as tolerated/lose weight Plan Follow up in 3 months Orders: Orders Complete Blood Count Auto Diff 3 Months I10 - Essential (primary) hypertension Hemoglobin A1c 3 Months E11.9 - Type 2 diabetes mellitus without complications Microalbumin, Random (w Creat) 3 Months E11.9 - Type 2 diabetes mellitus without complications TSH reflex Free T4 3 Months E78.00 - Pure hypercholesterolemia, unspecified UA CC w/rflx Micro + Cult 3 Months R30.0 - Dysuria Comprehensive [place]. Panel Fast 3 Months E78.00 - Pure hypercholesterolemia, unspecified Lipid Panel 3 Months E78.00 - Pure hypercholesterolemia, unspecified Vitamin D 25-OH Total 3 Months E55.9 - Vitamin D deficiency, unspecified Coding Level of Care Code Est Pt Level 4 (31442) Diagnoses Pyelonephritis N12 Pure hypercholesterolemia E78.00 Type 2 diabetes mellitus with stage 2 chronic kidney disease, with long-term current use of insulin E11.22; N18.2; Z79.4 Chronic kidney disease stage: stage 2 (mild) Diabetes mellitus longterm insulin use: with intermediate project manager use Mild intermittent asthma without complication J45.20 Asthma complication type: uncomplicated Asthma persistence: intermittent Asthma severity: mild Obstructive sleep apnea G47.33 Primary osteoarthritis involving multiple joints M89.49 Osteoarthritis location: multiple joints Osteoarthritis type: primary GERD without esophagitis K21.9 Vitamin D deficiency E55.9 Constipation, unspecified constipation type K59.00 Constipation type: unspecified constipation type Symptomatic abdominal panniculus E65 Anxiety F41.9 Morbid obesity with BMI of 50.0-59.9, adult E66.01; Z68.43
== END 2023-07-09 17:28 | disposition home or self-care (01) ==
PROVIDERS: PCP Internal Medicine; Visit Provider Internal Medicine
DX: E11.22 Type 2 diabetes mellitus with diabetic chronic kidney disease (principal); N18.2 Chronic kidney disease, stage 2 (mild); Z79.4 Long term (current) use of insulin; J45.20 Mild intermittent asthma, uncomplicated; N12 Tubulo-interstitial nephritis, not specified as acute or chronic; K21.9 Gastro-esophageal reflux disease without esophagitis; E55.9 Vitamin D deficiency, unspecified; F41.9 Anxiety disorder, unspecified; E66.01 Morbid (severe) obesity due to excess calories; E78.00 Pure hypercholesterolemia, unspecified; Z68.43 Body mass index [BMI] 50.0-59.9, adult; G47.33 Obstructive sleep apnea (adult) (pediatric)
CPT/HCPCS: 99214

== ENCOUNTER 2023-10-12 09:31 | Outpatient (REF) | payer OTHER, SELFPAY ==
[2023-10-12 10:04] LABS: MANUAL DIFF FLAG NO
[2023-10-12 10:08] LABS: Basophils Percent Auto 0.4 % (0-2); Eosinophils Absolute Auto 0.1 X10*3/uL (0.0-0.4); Eosinophils Percent Auto 1.7 % (0-4); Hematocrit 46.5 % (37.0-47.0); Imm Gran Abs Auto 0.02 X10*3/uL (0.00-0.03); Imm Gran Pct Auto 0.3 % (0.0-0.4); Lymphocytes Absolute Auto 1.8 X10*3/uL (1.2-4.9); Mean Corpuscular HGB Conc 32.3 g/dl (31.0-35.0); Mean Corpuscular Hemoglobin 27.3 pg (27.0-33.0); Mean Corpuscular Volume 84.5 fL (80.0-98.0); Mean Platelet Volume 10.5 fL (9.4-12.3); Monocytes Absolute Auto 0.4 X10*3/uL (0.1-1.2); Monocytes Percent Auto 5.9 % (2-11); Neutrophils Absolute Auto 4.6 x10*3/uL (2.0-8.3); Neutrophils Percent Auto 65.7 % (45-73); Platelet Count 204 X10*3/uL (160-400); White Blood Count 7.1 X10*3/uL (4.8-10.8)
[2023-10-12 10:32] LABS: Appearance Urine Clear; Color Urine Yellow; Glucose Urine UA Negative (Negative); Leukocyte Esterase Urine Negative (Negative); Nitrite Urine Negative (Negative); PH 6.5 (5.0-9.0); Urine Blood Negative (Negative); Urine Ketones Negative (Negative); Urine Protein Negative (Neg-Trace)
[2023-10-12 10:34] LABS: Alanine Aminotransferase 15 U/L (0-31); Albumin Level 3.9 g/dL (3.5-5.0); Alkaline Phosphatase 94 U/L (39-117); Anion Gap 15 (12-20); Aspartate Amino Transferase 16 U/L (5-31); Bilirubin Total 0.4 mg/dL (0.0-1.0); Blood Urea Nitrogen 14 mg/dL (9-16); Calcium 9.1 mg/dL (8.4-10.2); Carbon Dioxide 25 mmol/L (22-29); Chloride 106 mmol/L (96-108); Cholesterol 235 mg/dL (<200); Estimated Glomerular Filt Rate > 60; Glucose Fasting 96 mg/dL (60-99); HDL Cholesterol 48 mg/dL (>40); LDL Cholesterol Calculated 162 mg/dL (<100); Potassium 4.1 mmol/L (3.3-5.1); Sodium 142 mmol/L (135-145); Total Protein 7.9 g/dL (6.5-8.0); Triglycerides 127 mg/dL (<150)
[2023-10-12 10:43] LABS: Estimated Average Glucose 105 mg/dL; Hemoglobin A1c % 5.3 % (<6.0)
[2023-10-12 10:51] LABS: Creatinine Urine 120.31 mg/dL; Microalbum/Creatinine Ratio Ur 25.7 ug/mg cr (<30)
== END 2023-10-12 09:32 | disposition home or self-care (01) ==
LOC: HO.LAB 09:31
PROVIDERS: PCP Internal Medicine; Visit Provider Internal Medicine
DX: I10 Essential (primary) hypertension (principal); E78.00 Pure hypercholesterolemia, unspecified; E11.9 Type 2 diabetes mellitus without complications; R30.0 Dysuria; E55.9 Vitamin D deficiency, unspecified
CPT/HCPCS: 36415; 80053; 80061; 81003; 82043; 82306; 82570; 83036; 84443; 85025

== ENCOUNTER 2024-02-17 15:59 | Outpatient (AMB) | payer OTHER, SELFPAY ==
--- NOTE | 2024-02-17 16:04 | MHC.PC.OV ---
Vital Signs 02/17/24 16:06 Height 5 ft 3 in Weight 298 lb 4 oz BMI 52.8 BP 120/64 Blood Pressure Location Lt brachial Position Sitting Pulse 82 Pulse Source Pulse Oximeter Pulse Oximetry (%) 95 Oxygen Delivery Method Room Air Intake Visit Reasons: Lab review Intake Note: Patient is here to follow up on DM, MALI, Asthma. 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 Accompanied by: Spouse Allergies aspirin [ASA] Allergy (Unknown, Verified 02/17/24 16:29) RASH ,SWELLING atorvastatin Allergy (Unknown, Verified 02/17/24 16:29) constipation ibuprofen [Advil] Allergy (Unknown, Verified 02/17/24 16:29) Unknown Medication List - Last Reconciled 02/17/24 by Turner Mccormack MD albuterol sulfate 90 mcg/actuation (ProAir HFA) 2 inhalations inhalation QID PRN 30 days albuterol sulfate 90 mcg/actuation (Ventolin HFA) 1 inh inhalation QID PRN blood sugar diagnostic (FreeStyle Lite Strips) TEST 3 TIMES A DAY - E11.9 blood-glucose meter (FreeStyle [place] Lite kit) freestyle lite lancets cholecalciferol (vitamin D3) 25 mcg PO DAILY 90 days [CPAP Device and all related accessories As directed] [CPAP DEVICE and ALL RELATED ACCESSORIES As directed - Pressure Settings to start at 4 cm and gradually increase to 14 cm] Humalog KwikPen Insulin (insulin lispro) 1 sliding scale dose subcut QIDACHS NS hydrocortisone 2.5% 1 appl topical BID PRN insulin glargine (Lantus Solostar U-100 Insulin) 10 units (0.1 mL) subcut DAILY insulin syr/ndl U100 half mayuri As directed lancets (FreeStyle Lancets) As directed 3 times a day melatonin 10 mg PO BEDTIME PRN 30 days Novolog FlexPen U-100 Insulin (insulin aspart U-100) Inject DIRECTED (dosed according to sliding scale) 4 times a day with meals and at bedtime PER SLIDING SCALE 125 - 150 2 units Insulin subq 151 - 200 4 units Insulin subq 201 - 250 6 units Insulin subq 251 - 300 8 units Insulin subq 301 - 350 10 units Insulin subq 351 - 400 12 units Insulin subq 30 days NS pantoprazole 40 mg PO DAILY 90 days pen needle, diabetic USE 4 TIMES A DAY semaglutide (Ozempic) 0.5 mg (0.374 mL) subcut QWEEK 12 weeks [SHOWER CHAIR (extra-large/heavy duty) As directed] simvastatin 20 mg PO BEDTIME 90 days tizanidine 4 mg PO Q8H PRN 10 days tramadol 50 mg PO TID PRN 30 days Tobacco use date assessed: 02/17/24 Dental Screening Dental Screen Date: 02/17/24 Did you have a dental visit in the last 12 months?: Yes Did you have a dental problem in the last 6 months where you did not have access to dental care?: No Was dental information given to patient?: Patient has dentist HPI Lab review HPI Details Patient comes in today for her follow up visit States that she feels okay She was last seen in June 2023 and her original follow up appt on 10/21/2023 was canceled and she was rescheduled to today She last had her labs done back in September 2023 and has not had any other follow up labs done since She denies any headaches or dizziness Denies any chest pains, no SOB No nausea/vomiting, no abdominal pain No change in bowel habits noted States that she needs most of her Rx refilled today [facility] [place] Medical History Morbid obesity with BMI of 50.0-59.9, adult GERD without esophagitis Primary osteoarthritis of shoulders, bilateral Obstructive sleep apnea Pure hypercholesterolemia Morbid obesity with BMI of 45.0-49.9, adult Anxiety Constipation Vitamin D deficiency Asthma Osteoarthritis Type 2 diabetes mellitus with diabetic chronic kidney disease (Unknown) Diabetes Surgical History H/O total knee replacement Total knee replacement status History of endometrial ablation History of hand surgery H/O right knee surgery Family History Father Motor vehicle accident Mother Liver cancer Social History Housing: Apartment Alcohol intake: never Patient Tobacco Use Status: Never used Tobacco e-Cigarette/Vaping Use: Never Used Second Hand Smoke Exposure: Yes service: No Current occupational status: disabled Cognitive needs: No Hearing needs: No Vision needs: No Questionnaire PHQ-9 Over the last 2 weeks, how often have you been bothered by any of the following problems? 1. Little interest or pleasure in doing things: not at all 2. Feeling down, depressed, or hopeless: not at all 3. Trouble falling or staying asleep, or sleeping too much: not at all 4. Feeling tired or having little energy: not at all 5. Poor appetite or overeating: not at all 6. Feeling bad about yourself - or that you are a failure or have let yourself or your family down: not at all 7. Trouble concentrating on things, such as reading the newspaper or watching television: not at all 8. Moving or speaking so slowly that other people could have noticed. Or the opposite - being so fidgety or restless that you have been moving around a lot more than usual: not at all 9. Thoughts that you would be better off or of hurting yourself in some way: not at all Total score: 0 Depression Screening Interpretation: Negative Depression Screening Done: Yes 91844 - PHQ-9 Billing: Yes Source: Developed by Drs. Garland Whitaker, Shana Thomas, Josue Thompson and colleagues, with an educational aravind from [employer]. Thrive Questionnaire Date Thrive assessed: 02/17/24 I am a: Patient What is your living situation today?: I have a steady place to live Within the past 12 months, did the food you bought not last and you didn't have the money to get more?: Never true Within the past 12 months, did you worry whether your food would run out before you got money to buy more?: Never true Do you have trouble paying for medicines?: No Do you have trouble getting transportation to medical appointments?: No Do you have trouble paying your heating and electricity bill?: No Do you have trouble taking care of your child, family member or friend?: No Do you have trouble with day-to-day activities such as bathing, preparing meals, shopping, managing finances, etc.?: No Are you currently unemployed and looking for a job?: No Are you interested in more education?: No Currently or been in a relationship where the following occur: no concerns reported THRIVE Score: 0 AUDIT C Alcohol Use Questionnaire (AUDIT-C) 1. How often do you have a drink containing alcohol?: Never 3. How often do you have six or more drinks on one occasion?: Never Total Score: 0 Score Reviewed/Action Taken: Yes JOHN-7 AMB Questionnaire JOHN-7 Date JOHN - 7 assessed: 02/17/24 Feeling nervous, anxious, or on edge: 0 = Not at all Not being able to stop or control worryin = Not at all Worrying too much about different things: 0 = Not at all Trouble relaxin = Not at all Being so restless that it is hard to sit still: 0 = Not at all Becoming easily annoyed or irritable: 0 = Not at all Feeling afraid as if something awful might happen: 0 = Not at all Total JOHN-7 score (0-4 normal; 5-9 mild; 10-14 moderate; 15-21 severe): 0 Source: Developed by Drs. Garland Whitaker, Shana Thomas, Josue Thompson and colleagues, with an educational aravind from [employer]. Review of Systems Const Denies chills, Denies fatigue, Denies fever(s) and Denies headache(s) ENT Denies dysphagia, Denies dizziness, Denies otalgia, Denies headache(s), Denies neck pain, Denies odynophagia and Denies sore throat Card Denies chest pain, Denies palpitations and Denies dyspnea Resp Denies cough and Denies dyspnea GI Denies abdominal pain, Denies constipation, Denies dysphagia, Denies heartburn, Denies diarrhea, Denies nausea, Denies odynophagia and Denies vomiting Denies difficulty voiding, Denies nocturia, Denies dysuria, Denies urinary hesitancy and Denies urinary urgency Musc Reports back pain, Reports arthralgias (knee - on and off; both shoulders - slightly worse on the left side), Reports limited range of motion (of both shoulders) and Denies neck pain Skin/Breast Reports alopecia (states that her hair has been falling out more lately), Denies pruritus and Denies rash Neuro Denies dizziness and Denies headache(s) Endo Denies fatigue and Denies palpitations Physical exam (Primary Care) Vital Signs: Last Vital Signs Pulse 82 02/17/24 16:06 BP 120/64 02/17/24 16:06 Pulse Ox 95 02/17/24 16:06 Oxygen Delivery Method Room Air 02/17/24 16:06 BMI result Body Mass Index 52.8 Tobacco/Smoking Status: Tobacco use Status Tobacco use date assessed 02/17/24 02/17/24 16:06 Patient Tobacco Use Status Never used Tobacco 02/17/24 16:06 e-Cigarette/Vaping Use Never Used 02/17/24 16:06 PHQ-9: PHQ-9 Score PHQ-9: Total score 0 02/17/24 16:34 Depression Screening Interpretation: Negative Thrive Assessment: Date of Thrive Assessment Date Thrive assessed 02/17/24 02/17/24 16:06 Currently or been in a relationship where the following occur: no concerns reported Const General: no acute distress and alert HENMT Ears: TM's normal bilaterally and EAC's normal Throat: Yes posterior oropharynx normal and Yes tonsils normal (no TP congestion noted) Neck Neck: Yes no lymphadenopathy and Yes supple Thyroid: Thyroid normal Resp Auscultation: clear to auscultation bilaterally, no rales and no wheezes Cardio Rate: regular rate Rhythm: regular rhythm Heart sounds: no murmurs GI Palpation (GI): Soft to palpation and nontender Auscultation: normal bowel sounds General: Yes no CVA tenderness Back/Spine/Pelvis Back: no CVA tenderness Thoracic/Lumbar Spine: No lumbar spinal tenderness Skin Rashes: no rashes Hair: sheds easily Extrem General: Yes no clubbing, cyanosis or edema Right upper extremity: shoulder/upper arm Details: tenderness Location: of the A-C joint and normal ROM Left upper extremity: shoulder/upper arm Details: tenderness Location: of the A-C joint; ROM limited Right lower extremity: knee Details: tenderness; no swelling Results AMB Hemoglobin A1c AMB Hemoglobin A1c 5.4 % Last Edit by BEN Lynn on 02/17/24 16:24 Results Reviewed Results Reviewed: Laboratory Last Values Hgb A1c (Clinic) 5.4 % (4.0-6.0) 02/17/24 16:03 Laboratory Tests 10/12/23 09:48 WBC 7.1 Hgb 15.0 Hct 46.5 Plt Count 204 Sodium 142 Potassium 4.1 Creatinine 0.80 Estimated GFR > 60 Fasting Glucose 96 Hemoglobin A1c % 5.3 Calcium 9.1 AST 16 ALT 15 Triglycerides 127 Cholesterol 235 H LDL Cholesterol, Calc 162 H HDL Cholesterol 48 25-OH Vitamin D Total 27.0 L TSH 1.70 Ur Specific [place] 1.020 Urine Protein Negative Urine Glucose (UA) Negative Urine Blood Negative Urine Nitrite Negative Ur Leukocyte Esterase Negative Microalb/Creat Ratio 25.7 Assessment and Plan Assessment & Plan (1) Pure hypercholesterolemia: Code(s): E78.00 - Pure hypercholesterolemia, unspecified Plan: Results of her labs done back in September 2023 reviewed and discussed with patient - she is advised that her cholesterol levels have increased again from previous, with her LDL cholesterol back up at 162 mg/dl Reinforced low cholesterol diet Continue Simvastatin 20 mg QD for now; she is advised again of the option of increasing her dosage later on if necessary but patient remains hesitant in doing this, considering her problems with Atorvastatin in the past but advised that we may not have much of a choice if her numbers do not improve on her current dose Will recheck her labs and fasting lipids in 4 months for follow up (2) Type 2 diabetes mellitus with diabetic chronic kidney disease: Onset Date: Unknown Code(s): E11.22 - Type 2 diabetes mellitus with diabetic chronic kidney disease Qualifiers: Diabetes mellitus terminologist insulin use: with terminologist use Chronic kidney disease stage: stage 2 (mild) Qualified Code(s): E11.22 - Type 2 diabetes mellitus with diabetic chronic kidney disease; N18.2 - Chronic kidney disease, stage 2 (mild); Z79.4 - intermodal dispatcher (current) use of insulin Plan: In-office HgbA1c done today is at 5.4% (her HgbA1c was also at 5.4% a few months ago) - goal is < 7.0% Reinforced diabetic diet Continue Lantus 20 units SQ Q HS, Ozempic 0.5 mg SQ once a week and Humalog 3 times a day with meals per sliding scale although patient states that she has not needed to take any Humalog for a while now as her blood sugar has remained very well-controlled (3) Asthma: Code(s): J45.909 - Unspecified asthma, uncomplicated Qualifiers: Asthma severity: mild Asthma persistence: intermittent Asthma complication type: uncomplicated Qualified Code(s): J45.20 - Mild intermittent asthma, uncomplicated Plan: Stable - continue Albuterol HFA 2 inhalations 4 times a day PRN (4) Obstructive sleep apnea: Code(s): G47.33 - Obstructive sleep apnea (adult) (pediatric) Plan: Patient continues to use her CPAP device when sleeping at night everyday Follow up with sleep medicine as scheduled (5) Osteoarthritis: Comment: involving multiple joints Code(s): M19.90 - Unspecified osteoarthritis, unspecified site Qualifiers: Osteoarthritis location: multiple joints Osteoarthritis type: primary Qualified Code(s): M89.49 - Other hypertrophic osteoarthropathy, multiple sites Plan: S/P total right knee arthroplasty on 07/18/2020 and S/P rehab/physical therapy Shoulder x-rays done a couple of years ago revealed (+) significant/severe OA changes in both shoulders Continue Tramadol 50 mg TID PRN for pain Follow-up with Orthopedics as scheduled (6) GERD without esophagitis: Code(s): K21.9 - Gastro-esophageal reflux disease without esophagitis Plan: Dietary restrictions reinforced Continue Pantoprazole 40 mg QD (7) Vitamin D deficiency: Code(s): E55.9 - Vitamin D deficiency, unspecified Plan: Continue Vitamin D3 1000 units QD (8) Constipation: Code(s): K59.00 - Constipation, unspecified Qualifiers: Constipation type: unspecified constipation type Qualified Code(s): K59.00 - Constipation, unspecified Plan: Reinforced increased oral fluids and dietary fiber Continue MiraLax 17 gm QD and Metamucil 2 capsules TID PRN (9) Anxiety: Code(s): F41.9 - Anxiety disorder, unspecified Plan: Continue Clonazepam 0.5 mg 1/2 to 1 tablet QD PRN and Fluoxetine 10 mg Q AM (10) Morbid obesity with BMI of 50.0-59.9, adult: Code(s): E66.01 - Morbid (severe) obesity due to excess calories; Z68.43 - Body mass index [BMI] 50.0-59.9, adult Plan: Reinforced diet/exercise as tolerated/lose weight Plan Follow up in 4 months Orders: Orders AMB Hemoglobin A1c 02/17/24 E11.22 - Type 2 diabetes mellitus with diabetic chronic kidney disease, N18.2 - Chronic kidney disease, stage 2 (mild), Z79.4 - intermodal dispatcher (current) use of insulin Lipid Panel 4 Months E78.00 - Pure hypercholesterolemia, unspecified Microalbumin, Random (w Creat) 4 Months E11.9 - Type 2 diabetes mellitus without complications UA CC w/rflx Micro + Cult 4 Months R30.0 - Dysuria Complete Blood Count Auto Diff 4 Months D64.9 - Anemia, unspecified Comprehensive [place]. Panel Fast 4 Months E78.00 - Pure hypercholesterolemia, unspecified TSH reflex Free T4 4 Months E78.00 - Pure hypercholesterolemia, unspecified Vitamin D 25-OH Total 4 Months E55.9 - Vitamin D deficiency, unspecified Hemoglobin A1c 4 Months E11.9 - Type 2 diabetes mellitus without complications Medications: Refilled albuterol sulfate 90 mcg/actuation (Ventolin HFA) 1 inh inhalation QID PRN 8.5 grams 3RF shortness of breath or wheezing Humalog KwikPen Insulin (insulin lispro) Inject as directed SQ 4 times a day with meals and at bedtime per sliding scale 125 - 150 2 units of Humalog Insulin subq 151 - 200 4 units of Humalog Insulin subq 201 - 250 6 units of Humalog Insulin subq 251 - 300 8 units of Humalog Insulin subq 301 - 350 10 units of Humalog Insulin subq 351 - 400 12 units of Humalog Insulin subq 1 sliding scale dose subcut QIDACHS 15 mL 5RF NS E11.22 - Type 2 diabetes mellitus with diabetic chronic kidney disease, N18.2 - Chronic kidney disease, stage 2 (mild), Z79.4 - FDC (current) use of insulin Novolog FlexPen U-100 Insulin (insulin aspart U-100) Inject DIRECTED (dosed according to sliding scale) 4 times a day with meals and at bedtime PER SLIDING SCALE 125 - 150 2 units Insulin subq 151 - 200 4 units Insulin subq 201 - 250 6 units Insulin subq 251 - 300 8 units Insulin subq 301 - 350 10 units Insulin subq 351 - 400 12 units Insulin subq 30 days 15 mL 11RF NS E11.22 - Type 2 diabetes mellitus with diabetic chronic kidney disease, N18.2 - Chronic kidney disease, stage 2 (mild), Z79.4 - intermodal dispatcher (current) use of insulin pen needle, diabetic USE 4 TIMES A DAY 100 ea 3RF Basaglar and Humalog injections E11.22 - Type 2 diabetes mellitus with diabetic chronic kidney disease, N18.2 - Chronic kidney disease, stage 2 (mild), Z79.4 - FDC (current) use of insulin blood sugar diagnostic (FreeStyle Lite Strips) TEST 3 TIMES A DAY - E11.9 100 ea 12RF E11.9 - Type 2 diabetes mellitus without complications cholecalciferol (vitamin D3) 25 mcg PO DAILY 90 days 90 caps 3RF E55.9 - Vitamin D deficiency, unspecified insulin glargine (Lantus Solostar U-100 Insulin) 10 units (0.1 mL) subcut DAILY 15 mL 3RF E11.22 - Type 2 diabetes mellitus with diabetic chronic kidney disease, N18.2 - Chronic kidney disease, stage 2 (mild), Z79.4 - intermodal dispatcher (current) use of insulin insulin syr/ndl U100 half mayuri As directed 100 ea 0RF lancets (FreeStyle Lancets) As directed 3 times a day 100 ea 12RF E11.22 - Type 2 diabetes mellitus with diabetic chronic kidney disease pantoprazole 40 mg PO DAILY 90 days 90 tabs 3RF K21.9 - Gastro-esophageal reflux disease without esophagitis semaglutide (Ozempic) 0.5 mg (0.374 mL) subcut QWEEK 12 weeks 4.8 mL 3RF E11.22 - Type 2 diabetes mellitus with diabetic chronic kidney disease, N18.2 - Chronic kidney disease, stage 2 (mild), Z79.4 - FDC (current) use of insulin simvastatin 20 mg PO BEDTIME 90 days 90 tabs 1RF E78.00 - Pure hypercholesterolemia, unspecified Coding Level of Care Code Est Pt Level 4 (17000) Diagnoses Pure hypercholesterolemia E78.00 Type 2 diabetes mellitus with stage 2 chronic kidney disease, with long-term current use of insulin E11.22; N18.2; Z79.4 Diabetes mellitus terminologist insulin use: with mcc use Chronic kidney disease stage: stage 2 (mild) Mild intermittent asthma without complication J45.20 Asthma severity: mild Asthma persistence: intermittent Asthma complication type: uncomplicated Obstructive sleep apnea G47.33 Primary osteoarthritis involving multiple joints M89.49 Osteoarthritis location: multiple joints Osteoarthritis type: primary GERD without esophagitis K21.9 Vitamin D deficiency E55.9 Constipation, unspecified constipation type K59.00 Constipation type: unspecified constipation type Anxiety F41.9 Morbid obesity with BMI of 50.0-59.9, adult E66.01; Z68.43
[2024-02-17 16:06] VITALS: BP 120/64; PULSE 82; O2SAT 95; BMI 52.8
== END 2024-02-17 16:53 | disposition home or self-care (01) ==
PROVIDERS: PCP Internal Medicine; Visit Provider Internal Medicine
DX: E11.22 Type 2 diabetes mellitus with diabetic chronic kidney disease (principal); N18.2 Chronic kidney disease, stage 2 (mild); Z79.4 Long term (current) use of insulin
CPT/HCPCS: 83036; 99214

== ENCOUNTER 2024-06-27 09:21 | Outpatient (REF) | payer OTHER, SELFPAY ==
[2024-06-27 09:44] LABS: MANUAL DIFF FLAG NO
[2024-06-27 10:35] LABS: Basophils Percent Auto 0.5 % (0-2); Eosinophils Absolute Auto 0.1 X10*3/uL (0.0-0.4); Eosinophils Percent Auto 1.6 % (0-4); Hematocrit 44.1 % (37.0-47.0); Hemoglobin 14.5 g/dl (12.0-16.0); Imm Gran Abs Auto 0.04 X10*3/uL (0.00-0.03); Imm Gran Pct Auto 0.5 % (0.0-0.4); Lymphocytes Absolute Auto 2.2 X10*3/uL (1.2-4.9); Lymphocytes Percent Auto 27.3 % (20-40); Mean Corpuscular HGB Conc 32.9 g/dl (31.0-35.0); Mean Corpuscular Hemoglobin 27.5 pg (27.0-33.0); Mean Corpuscular Volume 83.7 fL (80.0-98.0); Mean Platelet Volume 10.5 fL (9.4-12.3); Monocytes Absolute Auto 0.6 X10*3/uL (0.1-1.2); Monocytes Percent Auto 7.8 % (2-11); Neutrophils Percent Auto 62.3 % (45-73); Platelet Count 196 X10*3/uL (160-400); Red Blood Count 5.27 X10*6/uL (4.20-5.50); Red Cell Distribution Width 14.1 % (11.0-16.0); White Blood Count 8.1 X10*3/uL (4.8-10.8)
[2024-06-27 10:43] LABS: Appearance Urine Clear; Color Urine Yellow; Glucose Urine UA Negative (Negative); Leukocyte Esterase Urine Negative (Negative); Nitrite Urine Negative (Negative); PH 5.5 (5.0-9.0); Specific Gravity - Urine 1.015 (1.005-1.025); Urine Blood Negative (Negative); Urine Ketones Negative (Negative); Urine Protein Negative (Neg-Trace)
[2024-06-27 11:07] LABS: Estimated Average Glucose 111 mg/dL; Hemoglobin A1c % 5.5 % (<6.0)
[2024-06-27 11:10] LABS: Creatinine Urine 123.71 mg/dL; Microalbum/Creatinine Ratio Ur 16.1 ug/mg cr (<30)
[2024-06-27 11:11] LABS: Alanine Aminotransferase 18 U/L (0-31); Albumin Level 3.8 g/dL (3.5-5.0); Alkaline Phosphatase 85 U/L (39-117); Anion Gap 12 (12-20); Aspartate Amino Transferase 16 U/L (5-31); Bilirubin Total 0.5 mg/dL (0.0-1.0); Blood Urea Nitrogen 10 mg/dL (9-16); Calcium 8.9 mg/dL (8.4-10.2); Carbon Dioxide 26 mmol/L (22-29); Chloride 108 mmol/L (96-108); Cholesterol 166 mg/dL (<200); Estimated Glomerular Filt Rate > 60; Glucose Fasting 92 mg/dL (60-99); HDL Cholesterol 41 mg/dL (>40); LDL Cholesterol Calculated 99 mg/dL (<100); Potassium 3.9 mmol/L (3.3-5.1); Sodium 142 mmol/L (135-145); Total Protein 7.4 g/dL (6.5-8.0); Triglycerides 131 mg/dL (<150)
[2024-06-27 11:29] LABS: TSH reflex Free T4 1.37 uIU/mL (0.32-4.0); Vitamin D 25-OH Total 29.1 ng/mL (>30)
== END 2024-06-27 09:22 | disposition home or self-care (01) ==
LOC: HO.LAB 09:21
PROVIDERS: PCP Internal Medicine; Visit Provider Internal Medicine
DX: D64.9 Anemia, unspecified (principal); E78.00 Pure hypercholesterolemia, unspecified; E11.9 Type 2 diabetes mellitus without complications; R30.0 Dysuria; E55.9 Vitamin D deficiency, unspecified
CPT/HCPCS: 36415; 80053; 80061; 81003; 82043; 82306; 82570; 83036; 84443; 85025

== ENCOUNTER 2024-07-06 17:10 | Outpatient (AMB) | payer OTHER, SELFPAY ==
[2024-07-06 17:14] VITALS: BP 134/80; PULSE 80; O2SAT 94; BMI 52.5
--- NOTE | 2024-07-06 17:14 | MHC.PC.OV ---
Vital Signs 07/06/24 17:14 Height 5 ft 3 in Weight 296 lb 4 oz BMI 52.5 BP 134/80 Blood Pressure Location Lt brachial Position Sitting Pulse 80 Pulse Source Pulse Oximeter Pulse Oximetry (%) 94 Oxygen Delivery Method Room Air Intake Visit Reasons: DM, hyperlipidemia, HTN Media Relations Specialist Required: No Accompanied by: Self / Same As Patient Allergies aspirin [ASA] Allergy (Unknown, Verified 07/06/24 17:42) RASH ,SWELLING atorvastatin Allergy (Unknown, Verified 07/06/24 17:42) constipation ibuprofen [Advil] Allergy (Unknown, Verified 07/06/24 17:42) Unknown Medication List - Last Reconciled 07/06/24 by Turner Mccormack MD albuterol sulfate 90 mcg/actuation (ProAir HFA) 2 inhalations inhalation QID PRN 30 days albuterol sulfate 90 mcg/actuation (Ventolin HFA) 1 inh inhalation QID PRN blood sugar diagnostic (FreeStyle Lite Strips) TEST 3 TIMES A DAY - E11.9 blood-glucose meter (FreeStyle [facility] Lite kit) freestyle lite lancets cholecalciferol (vitamin D3) 25 mcg PO DAILY 90 days [CPAP Device and all related accessories As directed] [CPAP DEVICE and ALL RELATED ACCESSORIES As directed - Pressure Settings to start at 4 cm and gradually increase to 14 cm] Humalog KwikPen Insulin (insulin lispro) 1 sliding scale dose subcut QIDACHS NS hydrocortisone 2.5% 1 appl topical BID PRN insulin glargine (Lantus Solostar U-100 Insulin) 10 units (0.1 mL) subcut DAILY insulin syr/ndl U100 half mayuri As directed 2 times per day lancets (FreeStyle Lancets) As directed 3 times a day melatonin 10 mg PO BEDTIME PRN 30 days Novolog FlexPen U-100 Insulin (insulin aspart U-100) Inject DIRECTED (dosed according to sliding scale) 4 times a day with meals and at bedtime PER SLIDING SCALE 125 - 150 2 units Insulin subq 151 - 200 4 units Insulin subq 201 - 250 6 units Insulin subq 251 - 300 8 units Insulin subq 301 - 350 10 units Insulin subq 351 - 400 12 units Insulin subq 30 days NS pantoprazole 40 mg PO DAILY 90 days pen needle, diabetic USE 4 TIMES A DAY semaglutide (Ozempic) 0.5 mg (0.374 mL) subcut QWEEK 12 weeks [SHOWER CHAIR (extra-large/heavy duty) As directed] simvastatin 20 mg PO BEDTIME 90 days tizanidine 4 mg PO Q8H PRN 10 days tramadol 50 mg PO TID PRN 30 days Tobacco use date assessed: 07/06/24 Dental Screening Dental Screen Date: 07/06/24 Did you have a dental visit in the last 12 months?: Yes Did you have a dental problem in the last 6 months where you did not have access to dental care?: No Was dental information given to patient?: Patient has dentist HPI DM, hyperlipidemia, HTN HPI Details Patient comes in today for her follow up visit States that she feels okay She denies any headaches or dizziness Denies any chest pains, no increased SOB No nausea/vomiting, no abdominal pain No change in bowel habits noted She had her follow up labs done about a week ago - to discuss her results She is also requesting for Rx for a blood pressure monitor as well as Rx for a new Rollator as her current one is over 5 years old and is starting to break down [facility] Medical History Morbid obesity with BMI of 50.0-59.9, adult GERD without esophagitis Primary osteoarthritis of shoulders, bilateral Obstructive sleep apnea Pure hypercholesterolemia Morbid obesity with BMI of 45.0-49.9, adult Anxiety Constipation Vitamin D deficiency Asthma Osteoarthritis Type 2 diabetes mellitus with diabetic chronic kidney disease (Unknown) Diabetes Surgical History H/O total knee replacement Total knee replacement status History of endometrial ablation History of hand surgery H/O right knee surgery Family History Father Motor vehicle accident Mother Liver cancer Social History Housing: Apartment Alcohol intake: never Patient Tobacco Use Status: Never used Tobacco e-Cigarette/Vaping Use: Never Used Second Hand Smoke Exposure: Yes service: No Current occupational status: disabled Cognitive needs: No Hearing needs: No Vision needs: No Questionnaire PHQ-9 Over the last 2 weeks, how often have you been bothered by any of the following problems? 1. Little interest or pleasure in doing things: not at all 2. Feeling down, depressed, or hopeless: not at all 3. Trouble falling or staying asleep, or sleeping too much: not at all 4. Feeling tired or having little energy: not at all 5. Poor appetite or overeating: not at all 6. Feeling bad about yourself - or that you are a failure or have let yourself or your family down: not at all 7. Trouble concentrating on things, such as reading the newspaper or watching television: not at all 8. Moving or speaking so slowly that other people could have noticed. Or the opposite - being so fidgety or restless that you have been moving around a lot more than usual: not at all 9. Thoughts that you would be better off or of hurting yourself in some way: not at all Total score: 0 Depression Screening Interpretation: Negative Depression Screening Done: Yes 73509 - PHQ-9 Billing: Yes Source: Developed by Drs. Garland Whitaker, Shana Thomas, Josue Thompson and colleagues, with an educational aravind from [employer]. Thrive Questionnaire Date Thrive assessed: 07/06/24 I am a: Patient What is your living situation today?: I have a steady place to live Within the past 12 months, did the food you bought not last and you didn't have the money to get more?: Never true Within the past 12 months, did you worry whether your food would run out before you got money to buy more?: Never true Do you have trouble paying for medicines?: No Do you have trouble getting transportation to medical appointments?: No Do you have trouble paying your heating and electricity bill?: No Do you have trouble taking care of your child, family member or friend?: No Do you have trouble with day-to-day activities such as bathing, preparing meals, shopping, managing finances, etc.?: No Are you currently unemployed and looking for a job?: No Are you interested in more education?: No Currently or been in a relationship where the following occur: No concerns reported THRIVE Score: 0 AUDIT C Alcohol Use Questionnaire (AUDIT-C) 1. How often do you have a drink containing alcohol?: Never 3. How often do you have six or more drinks on one occasion?: Never Total Score: 0 Score Reviewed/Action Taken: Yes JOHN-7 AMB Questionnaire JOHN-7 Date JOHN - 7 assessed: 07/06/24 Feeling nervous, anxious, or on edge: 0 = Not at all Not being able to stop or control worryin = Not at all Worrying too much about different things: 0 = Not at all Trouble relaxin = Not at all Being so restless that it is hard to sit still: 0 = Not at all Becoming easily annoyed or irritable: 0 = Not at all Feeling afraid as if something awful might happen: 0 = Not at all Total JOHN-7 score (0-4 normal; 5-9 mild; 10-14 moderate; 15-21 severe): 0 Source: Developed by Drs. Garland Whitaker, Shana Thomas, Josue Thompson and colleagues, with an educational aravind from [employer]. Review of Systems Const Denies chills, Denies fatigue, Denies fever(s) and Denies headache(s) ENT Denies dysphagia, Denies dizziness, Denies otalgia, Denies headache(s), Denies neck pain, Denies odynophagia and Denies sore throat Card Denies chest pain, Denies palpitations and Denies dyspnea Resp Denies chest congestion, Denies cough and Denies dyspnea GI Denies abdominal pain, Denies constipation, Denies dysphagia, Denies heartburn, Denies diarrhea, Denies nausea, Denies odynophagia and Denies vomiting Denies difficulty voiding, Denies nocturia, Denies dysuria, Denies urinary hesitancy and Denies urinary urgency Musc Reports back pain, Reports arthralgias (knee - on and off; both shoulders - slightly worse on the left side) and Denies neck pain Skin/Breast Denies rash Neuro Denies dizziness and Denies headache(s) Endo Denies fatigue and Denies palpitations Physical exam (Primary Care) Vital Signs: Last Vital Signs Pulse 80 07/06/24 17:14 BP 134/80 07/06/24 17:14 Pulse Ox 94 07/06/24 17:14 Oxygen Delivery Method Room Air 07/06/24 17:14 BMI result Body Mass Index 52.5 Tobacco/Smoking Status: Tobacco use Status Tobacco use date assessed 07/06/24 07/06/24 17:15 Patient Tobacco Use Status Never used Tobacco 07/06/24 17:15 e-Cigarette/Vaping Use Never Used 07/06/24 17:15 PHQ-9: PHQ-9 Score PHQ-9: Total score 0 07/06/24 21:59 Depression Screening Interpretation: Negative Thrive Assessment: Date of Thrive Assessment Date Thrive assessed 07/06/24 07/06/24 17:15 Currently or been in a relationship where the following occur: No concerns reported Const General: no acute distress and alert HENMT Ears: TM's normal bilaterally and EAC's normal Throat: Yes posterior oropharynx normal and Yes tonsils normal (no TP congestion noted) Neck Neck: Yes no lymphadenopathy and Yes supple Thyroid: Thyroid normal Resp Auscultation: clear to auscultation bilaterally, no rales and no wheezes Cardio Rate: regular rate Rhythm: regular rhythm Heart sounds: no murmurs GI Palpation (GI): Soft to palpation and nontender Auscultation: normal bowel sounds General: Yes no CVA tenderness Back/Spine/Pelvis Back: no CVA tenderness Thoracic/Lumbar Spine: No lumbar spinal tenderness Skin Rashes: no rashes Extrem General: Yes no clubbing, cyanosis or edema Right upper extremity: shoulder/upper arm Details: tenderness Location: of the A-C joint and normal ROM Left upper extremity: shoulder/upper arm Details: tenderness Location: of the A-C joint; ROM limited Right lower extremity: knee Details: tenderness; no swelling Results Reviewed Results Reviewed: Laboratory Tests 06/27/24 06/27/24 09:41 09:45 WBC 8.1 Hgb 14.5 Hct 44.1 Plt Count 196 Sodium 142 Potassium 3.9 Creatinine 0.74 Estimated GFR > 60 Fasting Glucose 92 Hemoglobin A1c % 5.5 Calcium 8.9 AST 16 ALT 18 Triglycerides 131 Cholesterol 166 LDL Cholesterol, Calc 99 HDL Cholesterol 41 25-OH Vitamin D Total 29.1 L TSH 1.37 Ur Specific Newcomb 1.015 Urine Protein Negative Urine Glucose (UA) Negative Urine Blood Negative Urine Nitrite Negative Ur Leukocyte Esterase Negative Microalb/Creat Ratio 16.1 Assessment and Plan Assessment & Plan (1) Pure hypercholesterolemia: Code(s): E78.00 - Pure hypercholesterolemia, unspecified Plan: Results of her labs done about a week ago reviewed and discussed with patient - she is advised that her cholesterol levels have improved significantly from previous, with her LDL cholesterol now down to 99 mg/dl Reinforced low cholesterol diet Continue Simvastatin 20 mg QD Will recheck her labs and fasting lipids in 4 months for follow up (2) Type 2 diabetes mellitus with diabetic chronic kidney disease: Onset Date: Unknown Code(s): E11.22 - Type 2 diabetes mellitus with diabetic chronic kidney disease Qualifiers: Chronic kidney disease stage: stage 2 (mild) Diabetes mellitus [employer] insulin use: with [employer] use Qualified Code(s): E11.22 - Type 2 diabetes mellitus with diabetic chronic kidney disease; N18.2 - Chronic kidney disease, stage 2 (mild); Z79.4 - group home (current) use of insulin Plan: Her HgbA1c is at 5.5% on her recent labs (in-office HgbA1c was at 5.4% a few months ago) - goal is < 7.0% Reinforced diabetic diet Continue Lantus 20 units SQ Q HS, Ozempic 0.5 mg SQ once a week and Humalog 3 times a day with meals per sliding scale although patient states that she has not needed to take her Humalog in a while now as her blood sugar has been very well-controlled (3) Asthma: Code(s): J45.909 - Unspecified asthma, uncomplicated Qualifiers: Asthma complication type: uncomplicated Asthma persistence: intermittent Asthma severity: mild Qualified Code(s): J45.20 - Mild intermittent asthma, uncomplicated Plan: Stable - continue Albuterol HFA 2 inhalations 4 times a day PRN (4) Obstructive sleep apnea: Code(s): G47.33 - Obstructive sleep apnea (adult) (pediatric) Plan: Patient continues to use her CPAP device when sleeping at night everyday Follow up with sleep medicine as scheduled (5) Osteoarthritis: Comment: involving multiple joints Code(s): M19.90 - Unspecified osteoarthritis, unspecified site Qualifiers: Osteoarthritis location: multiple joints Osteoarthritis type: primary Qualified Code(s): M89.49 - Other hypertrophic osteoarthropathy, multiple sites Plan: S/P total right knee arthroplasty on 07/18/2020 and S/P rehab/physical therapy Shoulder x-rays done a couple of years ago revealed (+) significant/severe OA changes in both shoulders Continue Tramadol 50 mg TID PRN for pain Follow-up with Orthopedics as scheduled Per request, Rx for Rollator provided to patient (6) GERD without esophagitis: Code(s): K21.9 - Gastro-esophageal reflux disease without esophagitis Plan: Dietary restrictions reinforced Continue Pantoprazole 40 mg QD (7) Vitamin D deficiency: Code(s): E55.9 - Vitamin D deficiency, unspecified Plan: Continue Vitamin D3 1000 units QD (8) Constipation: Code(s): K59.00 - Constipation, unspecified Qualifiers: Constipation type: unspecified constipation type Qualified Code(s): K59.00 - Constipation, unspecified Plan: Reinforced increased oral fluids and dietary fiber Continue MiraLax 17 gm QD and Metamucil 2 capsules TID PRN (9) Morbid obesity with BMI of 50.0-59.9, adult: Code(s): E66.01 - Morbid (severe) obesity due to excess calories; Z68.43 - Body mass index [BMI] 50.0-59.9, adult Plan: Reinforced diet; exercise and weight loss are not realistic given her physical issues but patient is on Semaglutide and has been able to lose a few pounds at times Plan Follow up in 4 months Orders: Orders Complete Blood Count Auto Diff 4 Months D64.9 - Anemia, unspecified Comprehensive [place]. Panel Fast 4 Months E78.00 - Pure hypercholesterolemia, unspecified Lipid Panel 4 Months E78.00 - Pure hypercholesterolemia, unspecified Microalbumin, Random (w Creat) 4 Months E11.9 - Type 2 diabetes mellitus without complications TSH reflex Free T4 4 Months E78.00 - Pure hypercholesterolemia, unspecified UA CC w/rflx Micro + Cult 4 Months R30.0 - Dysuria Hemoglobin A1c 4 Months E11.9 - Type 2 diabetes mellitus without complications Vitamin D 25-OH Total 4 Months E55.9 - Vitamin D deficiency, unspecified Medications: New [ROLLATOR] As directed 1 ea 0RF M89.49 - Other hypertrophic osteoarthropathy, multiple sites, Z96.659 - Presence of unspecified artificial knee joint blood pressure monitor As directed 1 ea 0RF I10 - Essential (primary) hypertension Coding Level of Care Code Est Pt Level 4 (38856) Complex EM visit Add On G2211 Diagnoses Pure hypercholesterolemia E78.00 Type 2 diabetes mellitus with stage 2 chronic kidney disease, with long-term current use of insulin E11.22; N18.2; Z79.4 Chronic kidney disease stage: stage 2 (mild) Diabetes mellitus [employer] insulin use: with [facility] use Mild intermittent asthma without complication J45.20 Asthma complication type: uncomplicated Asthma persistence: intermittent Asthma severity: mild Obstructive sleep apnea G47.33 Primary osteoarthritis involving multiple joints M89.49 Osteoarthritis location: multiple joints Osteoarthritis type: primary GERD without esophagitis K21.9 Vitamin D deficiency E55.9 Constipation, unspecified constipation type K59.00 Constipation type: unspecified constipation type Morbid obesity with BMI of 50.0-59.9, adult E66.01; Z68.43
== END 2024-07-06 18:07 | disposition home or self-care (01) ==
PROVIDERS: PCP Internal Medicine; Visit Provider Internal Medicine
DX: E11.22 Type 2 diabetes mellitus with diabetic chronic kidney disease (principal); Z79.4 Long term (current) use of insulin; E66.01 Morbid (severe) obesity due to excess calories; Z68.43 Body mass index [BMI] 50.0-59.9, adult; N18.2 Chronic kidney disease, stage 2 (mild); E78.00 Pure hypercholesterolemia, unspecified; J45.20 Mild intermittent asthma, uncomplicated; G47.33 Obstructive sleep apnea (adult) (pediatric); M89.49 Other hypertrophic osteoarthropathy, multiple sites; K21.9 Gastro-esophageal reflux disease without esophagitis; E55.9 Vitamin D deficiency, unspecified; K59.00 Constipation, unspecified

== ENCOUNTER → 2024-07-06 17:10 | Outpatient (BNVA) | payer OTHER, SELFPAY | PROVIDERS: PCP Internal Medicine; Visit Provider Internal Medicine | DX: I12.9 Hypertensive chronic kidney disease with stage 1 through stage 4 chronic kidney disease, or unspecified chronic kidney disease (principal); E11.22 Type 2 diabetes mellitus with diabetic chronic kidney disease; N18.2 Chronic kidney disease, stage 2 (mild); J45.20 Mild intermittent asthma, uncomplicated; M89.49 Other hypertrophic osteoarthropathy, multiple sites; K21.9 Gastro-esophageal reflux disease without esophagitis; E55.9 Vitamin D deficiency, unspecified; E78.00 Pure hypercholesterolemia, unspecified; G47.33 Obstructive sleep apnea (adult) (pediatric); Z79.4 Long term (current) use of insulin | CPT/HCPCS: 99212 ==

== ENCOUNTER 2024-07-18 09:02 | Outpatient (REF) | payer OTHER, SELFPAY ==
--- NOTE | ~2024-07-18 | MM_ITS ---
EXAMINATION: MM SCREENING DIGITAL BREAST TOMOSYNTHESIS, BILATERAL CLINICAL INFORMATION: Screening. Asymptomatic. COMPARISON: Mammography: Comparison is made with available priors TECHNIQUE: Digital breast mammography with tomosynthesis is performed in both the craniocaudal and mediolateral oblique views along with computer-aided detection (CAD). FINDINGS: There are scattered areas of fibroglandular density (ACR BI-RADS breast composition Category b). There are no significant masses, abnormal calcifications, or other abnormalities. MM/MM tomosynthesis screening BI IMPRESSION: No mammographic evidence of malignancy. ASSESSMENT: BI-RADS BI-RADS 1 - Negative RECOMMENDATION: Routine annual mammography screening. 1 year F/U This examination should not preclude the clinical evaluation of a suspicious palpable abnormality. This patient's information was entered into a reminder system with a target due date for their next mammogram. Electronically signed by: Mary Herron DO 07/29/2024 04:22 PM EDT
== END 2024-07-18 09:03 | disposition home or self-care (01) ==
LOC: HO.MAMMO 09:02
PROVIDERS: PCP Internal Medicine; Visit Provider Internal Medicine
DX: Z12.31 Encounter for screening mammogram for malignant neoplasm of breast (principal)
CPT/HCPCS: 77063; 77067

== ENCOUNTER → 2024-07-18 09:15 | Outpatient (BNV) | payer OTHER, SELFPAY | PROVIDERS: PCP Internal Medicine; Visit Provider Internal Medicine | DX: Z12.31 Encounter for screening mammogram for malignant neoplasm of breast (principal) | CPT/HCPCS: 77063; 77067 ==

== ENCOUNTER 2024-11-07 09:52 | Outpatient (REF) | payer OTHER, SELFPAY ==
--- OUTSIDE RECORDS SUMMARY | 2024-11-07 09:53 | XMS_ITS | Clinical Summary ---
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 Name Role Phone Unavailable Primary Care Provider Unavailabl e Social History Tobacco Use Types Packs/Day Years Used Date Smoking Tobacco: Never Smokeless Tobacco: Never Alcohol Use Standard Drinks/Week Comments No 0 (1 standard drink = 0.6 oz pur e alcohol) Sex and Gender Information Value Date Recorded Sex Assigned at Not on file Gender Identity Not on file Sexual Orientation Not on file Obstetrics History Plan of Treatment Health Maintenance Due Date Last Done Comments Breast Cancer Screening 1964 DTaP,Tdap,and Td Vaccines (1 - Tdap) 1983 Cervical Cancer Screening: P ap Smear 1985 Zoster Vaccines (1 of 2) 2014 COVID-19 Vaccine ( - 2023-2 5 season) 2024 Influenza Vaccine (#1) 2024 RSV Immunization Patients 60 + Years Old (1 - 1-dose 75+ series) 2039 HIB Vaccines Aged Out No longer eligi ble based on patient's age to complete this topic HPV Vaccines Aged Out No longer eligi ble based on patient's age to complete this topic Hepatitis A Vaccines Aged Out No long er eligible based on patient's age to complete this topic Hepatitis B Vaccines Aged Out No long er eligible based on patient's age to complete this topic IPV Vaccines Aged Out No longer eligi ble based on patient's age to complete this topic MMR Vaccines Aged Out No longer eligi ble based on patient's age to complete this topic Meningococcal ACWY Vaccine Aged Out N o longer eligible based on patient's age to complete this topic Pneumococcal Vaccine: Pediat rics (0 to 5 Years) and At-Risk Patients (6 to 64 Years) Aged Out No longer eligible b ased on patient's age to complete this topic RSV Immunization Patients Un juan 20 months Aged Out No longer eligible b ased on patient's age to complete this topic Varicella Vaccines Aged Out No longer eligible based on patient's age to complete this topic
[2024-11-07 10:14] LABS: MANUAL DIFF FLAG NO
[2024-11-07 11:26] LABS: Basophils Percent Auto 0.6 % (0-2); Eosinophils Absolute Auto 0.1 X10*3/uL (0.0-0.4); Eosinophils Percent Auto 1.4 % (0-4); Hematocrit 45.2 % (37.0-47.0); Hemoglobin 14.8 g/dl (12.0-16.0); Imm Gran Abs Auto 0.02 X10*3/uL (0.00-0.03); Imm Gran Pct Auto 0.3 % (0.0-0.4); Lymphocytes Percent Auto 28.4 % (20-40); Mean Corpuscular HGB Conc 32.7 g/dl (31.0-35.0); Mean Corpuscular Hemoglobin 27.2 pg (27.0-33.0); Mean Corpuscular Volume 83.1 fL (80.0-98.0); Mean Platelet Volume 10.8 fL (9.4-12.3); Monocytes Absolute Auto 0.5 X10*3/uL (0.1-1.2); Monocytes Percent Auto 6.9 % (2-11); Neutrophils Absolute Auto 4.4 x10*3/uL (2.0-8.3); Neutrophils Percent Auto 62.4 % (45-73); Platelet Count 198 X10*3/uL (160-400); Red Blood Count 5.44 X10*6/uL (4.20-5.50); Red Cell Distribution Width 14.1 % (11.0-16.0)
[2024-11-07 11:28] LABS: Appearance Urine Clear; Color Urine Yellow; Glucose Urine UA Negative (Negative); Leukocyte Esterase Urine Negative (Negative); Nitrite Urine Negative (Negative); PH 5.5 (5.0-9.0); Urine Blood Negative (Negative); Urine Ketones Negative (Negative); Urine Protein Negative (Neg-Trace)
[2024-11-07 11:50] LABS: Estimated Average Glucose 111 mg/dL; Hemoglobin A1C 140.9947 umol/L; Hemoglobin A1c % 5.5 % (<6.0); Total Hemoglobin (HGBA1C) 3882.9988 umol/L
[2024-11-07 11:53] LABS: Creatinine Urine 113.16 mg/dL; Microalbum/Creatinine Ratio Ur 22.9 ug/mg cr (<30)
[2024-11-07 12:12] LABS: Alanine Aminotransferase 19 U/L (0-31); Albumin Level 3.9 g/dL (3.5-5.0); Alkaline Phosphatase 69 U/L (39-117); Anion Gap 12 (12-20); Aspartate Amino Transferase 24 U/L (5-31); Bilirubin Total 0.5 mg/dL (0.0-1.0); Blood Urea Nitrogen 16 mg/dL (9-16); Calcium 8.7 mg/dL (8.4-10.2); Carbon Dioxide 27 mmol/L (22-29); Chloride 108 mmol/L (96-108); Cholesterol 202 mg/dL (<200); Estimated Glomerular Filt Rate > 60; Glucose Fasting 89 mg/dL (60-99); HDL Cholesterol 39 mg/dL (>40); LDL Cholesterol Calculated 137 mg/dL (<100); Potassium 4.2 mmol/L (3.3-5.1); Sodium 143 mmol/L (135-145); Total Protein 7.8 g/dL (6.5-8.0); Triglycerides 131 mg/dL (<150)
[2024-11-07 12:16] LABS: TSH reflex Free T4 1.95 uIU/mL (0.32-4.0); Vitamin D 25-OH Total 33.1 ng/mL (>30)
== END 2024-11-07 09:53 | disposition home or self-care (01) ==
LOC: HO.LAB 09:52
PROVIDERS: PCP Internal Medicine; Visit Provider Internal Medicine
DX: E78.00 Pure hypercholesterolemia, unspecified (principal); E11.9 Type 2 diabetes mellitus without complications; E55.9 Vitamin D deficiency, unspecified; D64.9 Anemia, unspecified; R30.0 Dysuria
CPT/HCPCS: 36415; 80053; 80061; 81003; 82043; 82306; 82570; 83036; 84443; 85025

== ENCOUNTER 2024-11-16 14:02 | Outpatient (AMB) | payer OTHER, SELFPAY ==
--- NOTE | 2024-11-16 14:12 | MHC.PC.OV ---
Vital Signs 11/16/24 14:15 Height 5 ft 3 in Weight 296 lb 8 oz BMI 52.5 BP 136/60 Blood Pressure Location Rt brachial Position Sitting Pulse 85 Pulse Source Pulse Oximeter Temp 97.3 F Temp Source Skin Pulse Oximetry (%) 97 Oxygen Delivery Method Room Air Intake Visit Reasons: 4 month f/u Intake Note: Patient is here to follow up on Hypercholesterolemia, DM, Asthma, OA. Production Superintendent Required: No Commercial Counsel: Present Accompanied by: Spouse Allergies aspirin [ASA] Allergy (Unknown, Verified 11/16/24 14:53) RASH ,SWELLING atorvastatin Allergy (Unknown, Verified 11/16/24 14:53) constipation ibuprofen [Advil] Allergy (Unknown, Verified 11/16/24 14:53) Unknown Medication List - Last Reconciled 11/16/24 by Turner Mccormack MD [Bariatric walker As directed] albuterol sulfate 90 mcg/actuation (ProAir HFA) 2 inhalations inhalation QID PRN 30 days albuterol sulfate 90 mcg/actuation (Ventolin HFA) 1 inh inhalation QID PRN blood pressure monitor As directed blood sugar diagnostic (FreeStyle Lite Strips) TEST 3 TIMES A DAY - E11.9 blood-glucose meter (FreeStyle [place] Lite kit) freestyle lite lancets cholecalciferol (vitamin D3) 25 mcg PO DAILY 90 days [CPAP Device and all related accessories As directed] [CPAP DEVICE and ALL RELATED ACCESSORIES As directed - Pressure Settings to start at 4 cm and gradually increase to 14 cm] Humalog KwikPen Insulin (insulin lispro) 1 sliding scale dose subcut QIDACHS NS hydrocortisone 2.5% 1 appl topical BID PRN insulin glargine (Lantus Solostar U-100 Insulin) 10 units (0.1 mL) subcut DAILY insulin syr/ndl U100 half mayuri As directed 2 times per day lancets (FreeStyle Lancets) As directed 3 times a day melatonin 10 mg PO BEDTIME PRN 30 days Novolog FlexPen U-100 Insulin (insulin aspart U-100) Inject DIRECTED (dosed according to sliding scale) 4 times a day with meals and at bedtime PER SLIDING SCALE 125 - 150 2 units Insulin subq 151 - 200 4 units Insulin subq 201 - 250 6 units Insulin subq 251 - 300 8 units Insulin subq 301 - 350 10 units Insulin subq 351 - 400 12 units Insulin subq 30 days NS pantoprazole 40 mg PO DAILY 90 days pen needle, diabetic USE 4 TIMES A DAY [ROLLATOR As directed] semaglutide (Ozempic) 0.5 mg (0.374 mL) subcut QWEEK 12 weeks [SHOWER CHAIR (extra-large/heavy duty) As directed] simvastatin 20 mg PO BEDTIME 90 days tizanidine 4 mg PO Q8H PRN 10 days tramadol 50 mg PO TID PRN 30 days Tobacco use date assessed: 11/16/24 Dental Screening Dental Screen Date: 11/16/24 Did you have a dental visit in the last 12 months?: Yes Did you have a dental problem in the last 6 months where you did not have access to dental care?: No Was dental information given to patient?: Patient has dentist HPI 4 month f/u HPI Details Patient comes in today for her follow up visit States that she feels okay She denies any headaches or dizziness Denies any chest pains, no increased SOB No nausea/vomiting but she is still experiencing recurrent epigastric pain/discomfort often, sometimes after she eats No change in bowel habits noted Adds that she has a couple of small raised lesions over her right upper eyelid at the nasal side - would like to know if there is anything she can use to help clear these up Needs several of her Rx refilled She had her follow up labs done last week - to discuss her results [facility] Medical History Morbid obesity with BMI of 50.0-59.9, adult GERD without esophagitis Primary osteoarthritis of shoulders, bilateral Obstructive sleep apnea Pure hypercholesterolemia Morbid obesity with BMI of 45.0-49.9, adult Anxiety Constipation Vitamin D deficiency Asthma Osteoarthritis Type 2 diabetes mellitus with diabetic chronic kidney disease (Unknown) Diabetes Surgical History H/O total knee replacement Total knee replacement status History of endometrial ablation History of hand surgery H/O right knee surgery Family History Father Motor vehicle accident Mother Liver cancer Social History Housing: Apartment Alcohol intake: never Patient Tobacco Use Status: Never used Tobacco e-Cigarette/Vaping Use: Never Used Second Hand Smoke Exposure: Yes service: No Current occupational status: disabled Cognitive needs: No Hearing needs: No Vision needs: No Questionnaire PHQ-9 Over the last 2 weeks, how often have you been bothered by any of the following problems? 1. Little interest or pleasure in doing things: not at all 2. Feeling down, depressed, or hopeless: not at all 3. Trouble falling or staying asleep, or sleeping too much: not at all 4. Feeling tired or having little energy: not at all 5. Poor appetite or overeating: not at all 6. Feeling bad about yourself - or that you are a failure or have let yourself or your family down: not at all 7. Trouble concentrating on things, such as reading the newspaper or watching television: not at all 8. Moving or speaking so slowly that other people could have noticed. Or the opposite - being so fidgety or restless that you have been moving around a lot more than usual: not at all 9. Thoughts that you would be better off or of hurting yourself in some way: not at all Total score: 0 Depression Screening Interpretation: Negative Depression Screening Done: Yes 14497 - PHQ-9 Billing: Yes Source: Developed by Drs. Garland Whitaker, Shana Thomas, Josue Thompson and colleagues, with an educational aravind from [employer]. Thrive Questionnaire Date Thrive assessed: 11/16/24 I am a: Patient What is your living situation today?: I have a steady place to live Within the past 12 months, did the food you bought not last and you didn't have the money to get more?: Never true Within the past 12 months, did you worry whether your food would run out before you got money to buy more?: Never true Do you have trouble paying for medicines?: No Do you have trouble getting transportation to medical appointments?: No Do you have trouble paying your heating and electricity bill?: No Do you have trouble taking care of your child, family member or friend?: No Do you have trouble with day-to-day activities such as bathing, preparing meals, shopping, managing finances, etc.?: No Are you currently unemployed and looking for a job?: No Are you interested in more education?: No Please select the resources that you would like help with: None Currently or been in a relationship where the following occur: No concerns reported THRIVE Score: 0 AUDIT C Alcohol Use Questionnaire (AUDIT-C) 1. How often do you have a drink containing alcohol?: Never 3. How often do you have six or more drinks on one occasion?: Never Total Score: 0 Score Reviewed/Action Taken: Yes JOHN-7 AMB Questionnaire JOHN-7 Date JOHN - 7 assessed: 11/16/24 Feeling nervous, anxious, or on edge: 0 = Not at all Not being able to stop or control worryin = Not at all Worrying too much about different things: 0 = Not at all Trouble relaxin = Not at all Being so restless that it is hard to sit still: 0 = Not at all Becoming easily annoyed or irritable: 0 = Not at all Feeling afraid as if something awful might happen: 0 = Not at all Total JOHN-7 score (0-4 normal; 5-9 mild; 10-14 moderate; 15-21 severe): 0 Source: Developed by Drs. Garland Whitaker, Shana Thomas, Josue Thompson and colleagues, with an educational aravind from [employer]. Review of Systems Const Denies chills, Denies fatigue, Denies fever(s) and Denies headache(s) ENT Denies dysphagia, Denies dizziness, Denies otalgia, Denies headache(s), Denies neck pain, Denies odynophagia and Denies sore throat Card Denies chest pain, Denies palpitations and Denies dyspnea Resp Denies chest congestion, Denies cough and Denies dyspnea GI Reports abdominal pain (on and off epigastric pain / discomfort, including after eating), Denies constipation, Denies dysphagia, Denies heartburn, Denies diarrhea, Denies nausea, Denies odynophagia and Denies vomiting Denies difficulty voiding, Denies nocturia, Denies dysuria, Denies urinary hesitancy and Denies urinary urgency Musc Reports back pain (over the lower back), Reports arthralgias (knee - on and off; both shoulders - slightly worse on the left side) and Denies neck pain Skin/Breast Details: (+) couple of small raised lesions on the nasal side of the right upper eyelid Denies rash Neuro Denies dizziness and Denies headache(s) Endo Denies fatigue and Denies palpitations Physical exam (Primary Care) Vital Signs: Last Vital Signs Temp 97.3 F 11/16/24 14:15 Pulse 85 11/16/24 14:15 BP 136/60 11/16/24 14:15 Pulse Ox 97 11/16/24 14:15 Oxygen Delivery Method Room Air 11/16/24 14:15 BMI result Body Mass Index 52.5 Tobacco/Smoking Status: Tobacco use Status Tobacco use date assessed 11/16/24 11/16/24 14:15 Patient Tobacco Use Status Never used Tobacco 11/16/24 14:15 e-Cigarette/Vaping Use Never Used 11/16/24 14:15 PHQ-9: PHQ-9 Score PHQ-9: Total score 0 11/16/24 14:54 Depression Screening Interpretation: Negative Thrive Assessment: Date of Thrive Assessment Date Thrive assessed 11/16/24 11/16/24 14:15 Currently or been in a relationship where the following occur: No concerns reported Const General: no acute distress and alert HENMT Ears: TM's normal bilaterally and EAC's normal Throat: Yes posterior oropharynx normal and Yes tonsils normal (no TP congestion noted) Eyes Other: (+) 2 small flesh-colored, raised lesions at the nasal side of the right upper eyelid Neck Neck: Yes supple and No lymphadenopathy Thyroid: Thyroid normal Resp Auscultation: clear to auscultation bilaterally, no rales and no wheezes Cardio Rate: regular rate Rhythm: regular rhythm Heart sounds: no murmurs GI Palpation (GI): Soft to palpation and nontender Auscultation: normal bowel sounds General: Yes no CVA tenderness Back/Spine/Pelvis Back: no CVA tenderness Thoracic/Lumbar Spine: lumbar spinal tenderness (mild) Skin Rashes: no rashes Extrem General: Yes no clubbing, cyanosis or edema Right upper extremity: shoulder/upper arm Details: tenderness Location: of the A-C joint and normal ROM Left upper extremity: shoulder/upper arm Details: tenderness Location: of the A-C joint; ROM limited Right lower extremity: knee Details: tenderness; no swelling Results Reviewed Results Reviewed: Laboratory Tests 11/07/24 11/07/24 10:09 10:13 WBC 7.0 Hgb 14.8 Hct 45.2 Plt Count 198 Sodium 143 Potassium 4.2 Creatinine 0.71 Estimated GFR > 60 Fasting Glucose 89 Hemoglobin A1c % 5.5 Calcium 8.7 AST 24 ALT 19 Triglycerides 131 Cholesterol 202 H LDL Cholesterol, Calc 137 H HDL Cholesterol 39 L 25-OH Vitamin D Total 33.1 TSH 1.95 Urine pH 5.5 Ur Specific [place] 1.020 Urine Protein Negative Urine Glucose (UA) Negative Urine Blood Negative Urine Nitrite Negative Ur Leukocyte Esterase Negative Microalb/Creat Ratio 22.9 Coding Level of Care Code Est Pt Level 4 (25436) Diagnoses Pure hypercholesterolemia E78.00 Type 2 diabetes mellitus with stage 2 chronic kidney disease, with long-term current use of insulin E11.22; N18.2; Z79.4 Diabetes mellitus snf insulin use: with structures technician use Chronic kidney disease stage: stage 2 (mild) Mild intermittent asthma without complication J45.20 Asthma severity: mild Asthma persistence: intermittent Asthma complication type: uncomplicated Obstructive sleep apnea G47.33 Primary osteoarthritis involving multiple joints M89.49 Osteoarthritis location: multiple joints Osteoarthritis type: primary Epigastric pain R10.13 GERD without esophagitis K21.9 Vitamin D deficiency E55.9 Constipation, unspecified constipation type K59.00 Constipation type: unspecified constipation type Lesion of right eyelid H02.9 Morbid obesity with BMI of 50.0-59.9, adult E66.01; Z68.43 Additional Codes PHQ-9 - 27935 - PHQ-9 Billing: Yes ([id number]) Assessment & Plan Assessment & Plan (1) Pure hypercholesterolemia: Code(s): E78.00 - Pure hypercholesterolemia, unspecified Category: Medical Plan: Results of her labs done last week reviewed and discussed with patientl Reinforced low cholesterol diet Continue Simvastatin 20 mg QD Will recheck her labs and fasting lipids in 4 months for follow up (2) Type 2 diabetes mellitus with diabetic chronic kidney disease: Onset Date: Unknown Code(s): E11.22 - Type 2 diabetes mellitus with diabetic chronic kidney disease Category: Medical Qualifiers: Diabetes mellitus snf insulin use: with structures technician use Chronic kidney disease stage: stage 2 (mild) Qualified Code(s): E11.22 - Type 2 diabetes mellitus with diabetic chronic kidney disease; N18.2 - Chronic kidney disease, stage 2 (mild); Z79.4 - phlebotomy director (current) use of insulin Plan: Her HgbA1c remains unchanged at 5.5% on her recent labs (HgbA1c was previously also at 5.5% a few months ago) - goal is < 7.0% Reinforced diabetic diet Continue Lantus 20 units SQ Q HS, Ozempic 0.5 mg SQ once a week and Humalog 3 times a day with meals per sliding scale although patient states that she has not needed to take her Humalog in a while now as her blood sugar has been very well-controlled (3) Asthma: Code(s): J45.909 - Unspecified asthma, uncomplicated Category: Medical Qualifiers: Asthma severity: mild Asthma persistence: intermittent Asthma complication type: uncomplicated Qualified Code(s): J45.20 - Mild intermittent asthma, uncomplicated Plan: Stable - continue Albuterol HFA 2 inhalations 4 times a day PRN (4) Obstructive sleep apnea: Code(s): G47.33 - Obstructive sleep apnea (adult) (pediatric) Category: Medical Plan: Patient continues to use her CPAP device when sleeping at night everyday Follow up with sleep medicine as scheduled (5) Osteoarthritis: Comment: involving multiple joints Code(s): M19.90 - Unspecified osteoarthritis, unspecified site Category: Medical Qualifiers: Osteoarthritis location: multiple joints Osteoarthritis type: primary Qualified Code(s): M89.49 - Other hypertrophic osteoarthropathy, multiple sites Plan: S/P total right knee arthroplasty on 07/18/2020 and S/P rehab/physical therapy Shoulder x-rays done a couple of years ago revealed (+) significant/severe OA changes in both shoulders Continue Tramadol 50 mg TID PRN for pain Follow-up with Orthopedics as scheduled (6) Epigastric pain: Code(s): R10.13 - Epigastric pain Category: Medical Plan: Discussed with patient that her symptoms are suggestive of gastritis but may also be related to her gall bladder Will send her for abdominal US for further evaluation Will also refer her to GI for further evaluation and management - may need EGD especially if her US comes back normal Dietary restrictions reinforced Continue Pantoprazole 40 mg QD for now (7) GERD without esophagitis: Code(s): K21.9 - Gastro-esophageal reflux disease without esophagitis Category: Medical Plan: Dietary restrictions reinforced Continue Pantoprazole 40 mg QD (8) Vitamin D deficiency: Code(s): E55.9 - Vitamin D deficiency, unspecified Category: Medical Plan: Continue Vitamin D3 1000 units QD (9) Constipation: Code(s): K59.00 - Constipation, unspecified Category: Medical Qualifiers: Constipation type: unspecified constipation type Qualified Code(s): K59.00 - Constipation, unspecified Plan: Reinforced increased oral fluids and dietary fiber Continue MiraLax 17 gm QD and Metamucil 2 capsules TID PRN (10) Lesion of right eyelid: Code(s): H02.9 - Unspecified disorder of eyelid Category: Medical Plan: Will refer patient to dermatology for further evaluation and management Advised that these are either keratoses or papillomas but most of these tend to be benign (11) Morbid obesity with BMI of 50.0-59.9, adult: Code(s): E66.01 - Morbid (severe) obesity due to excess calories; Z68.43 - Body mass index [BMI] 50.0-59.9, adult Category: Medical Plan: Reinforced diet; exercise and weight loss are not realistic given her physical issues but patient is on Semaglutide and has been able to lose a few pounds at times Plan Follow up in 4 months Orders: Orders Lipid Panel 4 Months E78.00 - Pure hypercholesterolemia, unspecified UA CC w/rflx Micro + Cult 4 Months R30.0 - Dysuria US abdomen complete 02/03/25 R10.13 - Epigastric pain, R19.00 - Intra-abdominal and pelvic swelling, mass and lump, unspecified site Hemoglobin A1c 4 Months E11.9 - Type 2 diabetes mellitus without complications Complete Blood Count Auto Diff 4 Months D64.9 - Anemia, unspecified Comprehensive Clio. Panel Fast 4 Months E78.00 - Pure hypercholesterolemia, unspecified TSH reflex Free T4 4 Months E78.00 - Pure hypercholesterolemia, unspecified Vitamin D 25-OH Total 4 Months E55.9 - Vitamin D deficiency, unspecified Referrals Gastroenterology Referral K21.9 - Gastro-esophageal reflux disease without esophagitis, R10.13 - Epigastric pain Dermatology Referral H02.9 - Unspecified disorder of eyelid Medications: Refilled albuterol sulfate 90 mcg/actuation (Ventolin HFA) 1 inh inhalation QID PRN 8.5 grams 3RF shortness of breath or wheezing blood sugar diagnostic (FreeStyle Lite Strips) TEST 3 TIMES A DAY - E11.9 100 ea 12RF E11.9 - Type 2 diabetes mellitus without complications cholecalciferol (vitamin D3) 25 mcg PO DAILY 90 days 90 caps 3RF E55.9 - Vitamin D deficiency, unspecified lancets (FreeStyle Lancets) As directed 3 times a day 100 ea 12RF E11.22 - Type 2 diabetes mellitus with diabetic chronic kidney disease pantoprazole 40 mg PO DAILY 90 days 90 tabs 3RF K21.9 - Gastro-esophageal reflux disease without esophagitis simvastatin 20 mg PO BEDTIME 90 days 90 tabs 1RF E78.00 - Pure hypercholesterolemia, unspecified Humalog KwikPen Insulin (insulin lispro) Inject as directed SQ 4 times a day with meals and at bedtime per sliding scale 125 - 150 2 units of Humalog Insulin subq 151 - 200 4 units of Humalog Insulin subq 201 - 250 6 units of Humalog Insulin subq 251 - 300 8 units of Humalog Insulin subq 301 - 350 10 units of Humalog Insulin subq 351 - 400 12 units of Humalog Insulin subq 1 sliding scale dose subcut QIDACHS 15 mL 5RF NS E11.22 - Type 2 diabetes mellitus with diabetic chronic kidney disease, N18.2 - Chronic kidney disease, stage 2 (mild), Z79.4 - nursing home (current) use of insulin hydrocortisone 2.5% 1 appl topical BID PRN 20 grams 0RF skin irritation insulin glargine (Lantus Solostar U-100 Insulin) 10 units (0.1 mL) subcut DAILY 15 mL 3RF E11.22 - Type 2 diabetes mellitus with diabetic chronic kidney disease, N18.2 - Chronic kidney disease, stage 2 (mild), Z79.4 - nursing home (current) use of insulin insulin syr/ndl U100 half mayuri As directed 2 times per day 100 ea 0RF E11.22 - Type 2 diabetes mellitus with diabetic chronic kidney disease, N18.2 - Chronic kidney disease, stage 2 (mild), Z79.4 - nursing home (current) use of insulin melatonin 10 mg PO BEDTIME 30 days PRN 30 tabs 3RF sleep Novolog FlexPen U-100 Insulin (insulin aspart U-100) Inject DIRECTED (dosed according to sliding scale) 4 times a day with meals and at bedtime PER SLIDING SCALE 125 - 150 2 units Insulin subq 151 - 200 4 units Insulin subq 201 - 250 6 units Insulin subq 251 - 300 8 units Insulin subq 301 - 350 10 units Insulin subq 351 - 400 12 units Insulin subq 30 days 15 mL 11RF NS E11.22 - Type 2 diabetes mellitus with diabetic chronic kidney disease, N18.2 - Chronic kidney disease, stage 2 (mild), Z79.4 - phlebotomy director (current) use of insulin pen needle, diabetic USE 4 TIMES A DAY 100 ea 3RF Basaglar and Humalog injections E11.22 - Type 2 diabetes mellitus with diabetic chronic kidney disease, N18.2 - Chronic kidney disease, stage 2 (mild), Z79.4 - phlebotomy director (current) use of insulin semaglutide (Ozempic) 0.5 mg (0.374 mL) subcut QWEEK 12 weeks 4.8 mL 3RF E11.22 - Type 2 diabetes mellitus with diabetic chronic kidney disease, N18.2 - Chronic kidney disease, stage 2 (mild), Z79.4 - phlebotomy director (current) use of insulin tizanidine 4 mg PO Q8H 10 days PRN 30 tabs 0RF muscle spasms/neck pain
[2024-11-16 14:15] VITALS: BP 136/60; PULSE 85; TEMP 36.3; O2SAT 97; BMI 52.5
--- OUTSIDE RECORDS SUMMARY | 2024-11-16 15:41 | XMS_ITS | Clinical Summary ---
Author Organization [facility] ity Address [address] [place] [address] Care Team Providers Care Stripper Shovel Operator Name Role Phone Unavailable Primary Care Provider [...]
== END 2024-11-16 15:19 | disposition home or self-care (01) ==
PROVIDERS: PCP Internal Medicine; Visit Provider Internal Medicine
DX: E11.22 Type 2 diabetes mellitus with diabetic chronic kidney disease (principal); Z79.4 Long term (current) use of insulin; E66.01 Morbid (severe) obesity due to excess calories; Z68.43 Body mass index [BMI] 50.0-59.9, adult; N18.2 Chronic kidney disease, stage 2 (mild); E78.00 Pure hypercholesterolemia, unspecified; J45.20 Mild intermittent asthma, uncomplicated; G47.33 Obstructive sleep apnea (adult) (pediatric); M89.49 Other hypertrophic osteoarthropathy, multiple sites; R10.13 Epigastric pain; K21.9 Gastro-esophageal reflux disease without esophagitis; E55.9 Vitamin D deficiency, unspecified

== ENCOUNTER → 2024-11-16 14:03 | Outpatient (BNVA) | payer OTHER, SELFPAY | PROVIDERS: PCP Internal Medicine; Visit Provider Internal Medicine | DX: E78.00 Pure hypercholesterolemia, unspecified (principal); E11.22 Type 2 diabetes mellitus with diabetic chronic kidney disease; N18.2 Chronic kidney disease, stage 2 (mild); Z79.4 Long term (current) use of insulin; J45.20 Mild intermittent asthma, uncomplicated; G47.33 Obstructive sleep apnea (adult) (pediatric); R10.13 Epigastric pain; K21.9 Gastro-esophageal reflux disease without esophagitis; E55.9 Vitamin D deficiency, unspecified; K59.00 Constipation, unspecified; H02.9 Unspecified disorder of eyelid; E66.01 Morbid (severe) obesity due to excess calories; Z68.43 Body mass index [BMI] 50.0-59.9, adult; Z71.3 Dietary counseling and surveillance | CPT/HCPCS: 96127; 99212 ==

== ENCOUNTER 2024-12-16 09:45 | Outpatient (REF) | payer OTHER, SELFPAY ==
--- NOTE | ~2024-12-16 | US_ITS ---
EXAMINATION: US ABDOMEN COMPLETE CLINICAL INFORMATION: Epigastric pain. COMPARISON: None available. TECHNIQUE: Real-time imaging of the abdominal viscera. FINDINGS: PANCREAS: Visualized portions are unremarkable. ABDOMINAL AORTA: The proximal, mid, and distal segments are normal in caliber. INFERIOR VENA CAVA: Visualized portions are normal. LIVER: The liver is normal in size. The liver contour is normal. Parenchymal echogenicity is increased. No focal hepatic lesion. There is no intrahepatic biliary duct dilatation seen. GALLBLADDER: The gallbladder is physiologically distended. Multiple impacted gallstones are present. No evidence of gallbladder wall thickening or pericholecystic fluid. COMMON BILE DUCT: Normal in caliber measuring 0.4 cm in diameter. RIGHT KIDNEY: No hydronephrosis. No renal calculi or focal parenchymal lesions. The kidney measures 11.3 cm in maximum dimension. There is an hypoechoic mass midpole measuring 3.0 x 2.8 x 3.1 cm LEFT KIDNEY: No hydronephrosis. No renal calculi or focal parenchymal lesions. The kidney measures 10.4 cm cm in maximum dimension. It has a lobulated contour. SPLEEN: The spleen measures 9.1 cm in maximum dimension. FREE FLUID: None. US/US abdomen complete IMPRESSION: Cholelithiasis. No wall thickening. No tenderness. Mildly increased liver echogenicity but no focal lesion seen. Lesion pole right kidney. Recommend further evaluation with CT or MRI without and with contrast.. Electronically signed by: Leonides William MD 12/18/2024 09:04 AM [facility]
--- OUTSIDE RECORDS SUMMARY | 2024-12-16 11:08 | XMS_ITS | Clinical Summary ---
Author Organization [facility] ity Address [address] [place] [address] Care Team Providers Care Service Aide Name Role Phone Unavailable Primary Care Provider Unavailabl e Social History Tobacco Use Types Packs/Day Years Used Date Smoking Tobacco: Never Smokeless Tobacco: Never Alcohol Use Standard Drinks/Week Comments No 0 (1 standard drink = 0.6 oz pur e alcohol) Comments Unknown Sex and Gender Information Value Date Recorded Sex Assigned at Not on file Legal Sex Female 4:37 AM EST Gender Identity Not on file Sexual Orientation Not on file Obstetrics History Plan of Treatment Health Maintenance Due Date Last Done Comments Breast Cancer Screening 1964 DTaP,Tdap,and Td Vaccines (1 - Tdap) 1983 Cervical Cancer Screening: P ap Smear 1985 Pneumococcal Vaccine: 50+ Ye ars (1 of 1 - PCV) 2014 Zoster Vaccines (1 of 2) 2014 COVID-19 [...] patient's age to complete this topic Meningococcal B Vacine Aged Out No lo nger eligible based on patient's age to complete [...]
== END 2024-12-16 09:46 | disposition home or self-care (01) ==
LOC: HO.US 09:45
PROVIDERS: PCP Internal Medicine; Visit Provider Internal Medicine
DX: R19.00 Intra-abdominal and pelvic swelling, mass and lump, unspecified site (principal); R10.13 Epigastric pain
CPT/HCPCS: 76700

== ENCOUNTER → 2024-12-16 09:49 | Outpatient (BNV) | payer OTHER, SELFPAY | PROVIDERS: PCP Internal Medicine; Visit Provider Radiology Diagnostic Radiology | DX: N28.89 Other specified disorders of kidney and ureter (principal); K80.20 Calculus of gallbladder without cholecystitis without obstruction | CPT/HCPCS: 76700 ==

== ENCOUNTER 2025-02-10 15:10 | Outpatient (AMB) | payer OTHER, SELFPAY ==
--- NOTE | 2025-02-10 15:15 | MHC.OFFVIS ---
Vital Signs 02/10/25 15:16 Height 5 ft 3 in Weight 300 lb BMI 53.1 BP 177/96 H Blood Pressure Location Lt radial Position Sitting Pulse 88 Intake Visit Reasons: Epigastric pain Intake Note: Kacey presents in the office as a new patient for epigastric pains. CC: She states this is her first visit because she has a pain in the epigastric region - sometimes she takes pantoprazole because she feels like bloating in her stomach. She gets burps and gas. Relux at times as well Deep Submergence Vehicle Operator Required: No Allergies aspirin [ASA] Allergy (Unknown, Verified 02/10/25 15:18) RASH ,SWELLING atorvastatin Adverse Reaction (Unknown, Verified 02/10/25 15:19) constipation ibuprofen [Advil] Adverse Reaction (Unknown, Verified 02/10/25 15:19) Unknown HPI Comments Details: 59 y.o F with PMH of who is here for upper GI sx. Reports sensation of discomfort and burning post prandially retrosternally. Sx started almost 4 months ago. Assoc with bloating and belching. No N/V. Sx get worse with laying down. BM are unchanged. No regurgitation. Sx predominantly during evening. no dysphagia or odynophagia. Takes pantoprazole as needed - 1-2 times a week. Of note - pt has also gained significant weight in the last 2 years. BMI 48--> 53 now. Pt also due for colo for screening. [place] 2014 (Dr Blackburn) good prep to cecum. Hemorrhoids. No polyps. [facility] Medical History Morbid obesity with BMI of 50.0-59.9, adult GERD without esophagitis Primary osteoarthritis of shoulders, bilateral Obstructive sleep apnea Pure hypercholesterolemia Morbid obesity with BMI of 45.0-49.9, adult Anxiety Constipation Vitamin D deficiency Asthma Osteoarthritis Type 2 diabetes mellitus with diabetic chronic kidney disease (Unknown) Diabetes Surgical History Hx of colonoscopy H/O total knee replacement Total knee replacement status History of endometrial ablation History of hand surgery H/O right knee surgery Family History Father Motor vehicle accident Mother Liver cancer Social History Housing: Apartment Alcohol intake: never Patient Tobacco Use Status: Never used Tobacco e-Cigarette/Vaping Use: Never Used Second Hand Smoke Exposure: Yes service: No Current occupational status: disabled Cognitive needs: No Hearing needs: No Vision needs: No Review of Systems Const All systems reviewed & are unremarkable except as noted in HPI and below Physical Exam Vital Signs: Last Vital Signs Pulse 88 02/10/25 15:16 BP 177/96 H 02/10/25 15:16 BMI result Body Mass Index 53.1 with obesity Nonicteric abd soft, nondistended uses wheelchair to ambulate Assessment & Plan Assessment & Plan (1) Epigastric pain: Code(s): R10.13 - Epigastric pain Category: Medical (2) Acid reflux: Code(s): K21.9 - Gastro-esophageal reflux disease without esophagitis Category: Medical (3) Morbid obesity with BMI of 50.0-59.9, adult: Code(s): E66.01 - Morbid (severe) obesity due to excess calories; Z68.43 - Body mass index [BMI] 50.0-59.9, adult Category: Medical Plan Discussed with the patient that worsening acid reflux is likely secondary to worsening obesity. BMI 53 now. This has likely compromised her physiological anti-reflux barrier. She also has other comorbidities 2/2 to this including DM, severe MALI, OA, hepatic steatosis. She was advised regarding low impact exercises to help with weight loss. Portion control. Also interested in referral to Bariatric Medicine. In addition, in terms of reflux management, reviewed that if only needs to utilize PPI intermittently, famotidine may be a better choice. We will get a barium swallow to rule out hiatal hernia as a contributing factor. No red flags to warrant urgent endoscopy at this time. Plan: - stop pantoprazole - famotidine 20 mg at bedtime as needed - wedge pillow when resting/sleeping - barium swallow - bariatric referral - handout provided for GERD diet - crc to be reviewed at next visit -- FIT vs colonoscopy follow up 3 months Orders: Orders FL barium swallow Today K21.9 - Gastro-esophageal reflux disease without esophagitis, R10.13 - Epigastric pain Referrals Bariatric Surgery Referral E66.01 - Morbid (severe) obesity due to excess calories, Z68.43 - Body mass index [BMI] 50.0-59.9, adult Medications: New [wedge pillow] at night time and for naps 1 ea 0RF K21.9 - Gastro-esophageal reflux disease without esophagitis famotidine 20 mg PO BEDTIME 90 tabs 1RF simethicone (Gas Relief (simethicone)) 125 mg PO BID-QID PRN 90 caps 0RF abdominal distention Discontinued pantoprazole Discontinued Reason: Doctor's Order 40 mg PO DAILY 90 days 90 tabs 3RF K21.9 - Gastro-esophageal reflux disease without esophagitis Coding Level of Care Code New Pt Level 4 (87702) Diagnoses Epigastric pain R10.13 Acid reflux K21.9 Morbid obesity with BMI of 50.0-59.9, adult E66.01; Z68.43
[2025-02-10 15:16] VITALS: BP 177/96; PULSE 88; BMI 53.1
--- OUTSIDE RECORDS SUMMARY | 2025-02-10 16:16 | XMS_ITS | Clinical Summary ---
Author Organization [facility] ity Address [address] [place] [address] Care Team Providers Care Chemical Unit Operator Name Role Phone Unavailable Primary Care [...] - 2023-2 5 season) 2024 Influenza Vaccine (Season Ended) 2025 RSV Immunization Adult Patie nts (1 - 1-dose 75+ series) 2039 HIB [...] age to complete this topic Meningococcal B Vaccine Aged Out No l onger eligible based on patient's age to complete [...]
== END 2025-02-10 15:59 | disposition home or self-care (01) ==
LOC: HO.HGI 15:11
PROVIDERS: PCP Internal Medicine; Visit Provider Internal Medicine
DX: R10.13 Epigastric pain (principal); K21.9 Gastro-esophageal reflux disease without esophagitis; E66.01 Morbid (severe) obesity due to excess calories; Z68.43 Body mass index [BMI] 50.0-59.9, adult
CPT/HCPCS: 99204

== ENCOUNTER → 2025-02-10 15:10 | Outpatient (BNVA) | payer OTHER, SELFPAY | PROVIDERS: PCP Internal Medicine; Visit Provider Internal Medicine | DX: E66.01 Morbid (severe) obesity due to excess calories (principal); R10.13 Epigastric pain; K21.9 Gastro-esophageal reflux disease without esophagitis; Z68.43 Body mass index [BMI] 50.0-59.9, adult | CPT/HCPCS: 99202 ==

== ENCOUNTER 2025-04-03 06:59 | Outpatient (REF) | payer OTHER, SELFPAY ==
[2025-04-03 07:19] LABS: MANUAL DIFF FLAG NO
[2025-04-03 07:55] LABS: Basophils Percent Auto 0.4 % (0-2); Eosinophils Absolute Auto 0.1 X10*3/uL (0.0-0.4); Eosinophils Percent Auto 1.3 % (0-4); Hematocrit 48.9 % (37.0-47.0); Hemoglobin 15.6 g/dl (12.0-16.0); Imm Gran Abs Auto 0.03 X10*3/uL (0.00-0.03); Imm Gran Pct Auto 0.3 % (0.0-0.4); Lymphocytes Absolute Auto 3.4 X10*3/uL (1.2-4.9); Lymphocytes Percent Auto 34.6 % (20-40); Mean Corpuscular HGB Conc 31.9 g/dl (31.0-35.0); Mean Corpuscular Volume 84.7 fL (80.0-98.0); Mean Platelet Volume 10.7 fL (9.4-12.3); Monocytes Absolute Auto 0.6 X10*3/uL (0.1-1.2); Monocytes Percent Auto 6.3 % (2-11); Neutrophils Absolute Auto 5.6 x10*3/uL (2.0-8.3); Neutrophils Percent Auto 57.1 % (45-73); Platelet Count 241 X10*3/uL (160-400); Red Blood Count 5.77 X10*6/uL (4.20-5.50); Red Cell Distribution Width 14.2 % (11.0-16.0); White Blood Count 9.8 X10*3/uL (4.8-10.8)
[2025-04-03 08:08] LABS: Appearance Urine Clear; Color Urine Yellow; Glucose Urine UA Negative (Negative); Leukocyte Esterase Urine Negative (Negative); Nitrite Urine Negative (Negative); PH 5.5 (5.0-9.0); Urine Blood Negative (Negative); Urine Ketones Negative (Negative); Urine Protein Negative (Neg-Trace)
[2025-04-03 08:11] LABS: Estimated Average Glucose 111 mg/dL; Hemoglobin A1C 150.4246 umol/L; Hemoglobin A1c % 5.5 % (<6.0)
[2025-04-03 09:05] LABS: Alanine Aminotransferase 19 U/L (0-31); Albumin Level 4.4 g/dL (3.5-5.0); Alkaline Phosphatase 92 U/L (39-117); Anion Gap 17 (12-20); Aspartate Amino Transferase 23 U/L (5-31); Bilirubin Total 0.4 mg/dL (0.0-1.0); Blood Urea Nitrogen 14 mg/dL (9-16); Calcium 9.6 mg/dL (8.4-10.2); Carbon Dioxide 26 mmol/L (22-29); Chloride 107 mmol/L (96-108); Cholesterol 191 mg/dL (<200); Estimated Glomerular Filt Rate > 60; Glucose Fasting 96 mg/dL (60-99); HDL Cholesterol 46 mg/dL (>40); LDL Cholesterol Calculated 123 mg/dL (<100); Potassium 3.9 mmol/L (3.3-5.1); Sodium 146 mmol/L (135-145); Triglycerides 114 mg/dL (<150)
[2025-04-03 09:09] LABS: TSH reflex Free T4 2.59 uIU/mL (0.32-4.0); Vitamin D 25-OH Total 36.8 ng/mL (>30)
== END 2025-04-03 07:00 | disposition home or self-care (01) ==
LOC: HO.LAB 06:59
PROVIDERS: PCP Internal Medicine; Visit Provider Internal Medicine
DX: E78.00 Pure hypercholesterolemia, unspecified (principal); E11.9 Type 2 diabetes mellitus without complications; D64.9 Anemia, unspecified; E55.9 Vitamin D deficiency, unspecified; R30.0 Dysuria
CPT/HCPCS: 36415; 80053; 80061; 81003; 82306; 83036; 84443; 85025

== ENCOUNTER 2025-04-09 16:05 | Outpatient (AMB) | payer OTHER, SELFPAY ==
[2025-04-09 16:07] VITALS: BP 130/84; PULSE 86; O2SAT 96; BMI 52.1
--- NOTE | 2025-04-09 16:07 | MHC.PC.OV ---
Vital Signs 04/09/25 16:07 Height 5 ft 3 in Weight 294 lb BMI 52.1 BP 130/84 Blood Pressure Location Rt brachial Position Sitting Pulse 86 Pulse Source Pulse Oximeter Pulse Oximetry (%) 96 Oxygen Delivery Method Room Air Intake Visit Reasons: 4 month f/u- A1C needed. Fire Truck Driver Required: No Accompanied by: Self / Same As Patient Allergies aspirin (ASA) Allergy (Unknown, Verified 04/09/25 17:20) RASH ,SWELLING atorvastatin Adverse Reaction (Unknown, Verified 04/09/25 17:20) constipation ibuprofen (Advil) Adverse Reaction (Unknown, Verified 04/09/25 17:20) Unknown Medication List - Last Reconciled 04/09/25 by Turner Mccormack MD [Bariatric walker As directed] albuterol sulfate 90 mcg/actuation (ProAir HFA) 2 inhalations inhalation QID PRN 30 days albuterol sulfate 90 mcg/actuation (Ventolin HFA) 1 inh inhalation QID PRN blood pressure monitor As directed blood sugar diagnostic (FreeStyle Lite Strips) TEST 3 TIMES A DAY - E11.9 blood-glucose meter (FreeStyle [place] Lite kit) freestyle lite lancets cholecalciferol (vitamin D3) 25 mcg PO DAILY 90 days cholecalciferol (vitamin D3) 10 mcg PO DAILY [CPAP Device and all related accessories As directed] [CPAP DEVICE and ALL RELATED ACCESSORIES As directed - Pressure Settings to start at 4 cm and gradually increase to 14 cm] famotidine 20 mg PO BEDTIME Humalog KwikPen Insulin (insulin lispro) 1 sliding scale dose subcut QIDACHS NS hydrocortisone 2.5% 1 appl topical BID PRN insulin glargine (Lantus Solostar U-100 Insulin) 10 units (0.1 mL) subcut DAILY insulin syr/ndl U100 half mayuri As directed 2 times per day lancets (FreeStyle Lancets) As directed 3 times a day melatonin 10 mg PO BEDTIME PRN 30 days Novolog FlexPen U-100 Insulin (insulin aspart U-100) Inject DIRECTED (dosed according to sliding scale) 4 times a day with meals and at bedtime PER SLIDING SCALE 125 - 150 2 units Insulin subq 151 - 200 4 units Insulin subq 201 - 250 6 units Insulin subq 251 - 300 8 units Insulin subq 301 - 350 10 units Insulin subq 351 - 400 12 units Insulin subq 30 days NS pen needle, diabetic USE 4 TIMES A DAY [ROLLATOR As directed] semaglutide (Ozempic) 0.5 mg (0.374 mL) subcut QWEEK 12 weeks [SHOWER CHAIR (extra-large/heavy duty) As directed] simethicone (Gas Relief (simethicone)) 125 mg PO BID-QID PRN simvastatin 20 mg PO BEDTIME 90 days tizanidine 4 mg PO Q8H PRN 10 days tramadol 50 mg PO TID PRN 30 days [wedge pillow at night time and for naps ] Tobacco use date assessed: 04/09/25 Dental Screening Dental Screen Date: 04/09/25 HPI 4 month f/u- A1C needed. HPI Details Patient comes in today for her follow-up visit States that she feels okay She denies any headaches or dizziness Denies any chest pains, no increased shortness of breath No nausea/vomiting, no abdominal pain No change in bowel habits noted She had her follow-up labs done last week - to discuss her results Patient adds that she was seen by Dr. Villegas for GI follow-up a few weeks ago and was advised to speak to her PCP about having her semaglutide dosage increased help her lose some weight Patient was also referred by Dr. Villegas to weight management here at [place] but she is requesting to have a referral changed over to weight management at [facility] Medical History Morbid obesity with BMI of 50.0-59.9, adult GERD without esophagitis Primary osteoarthritis of shoulders, bilateral Obstructive sleep apnea Pure hypercholesterolemia Morbid obesity with BMI of 45.0-49.9, adult Anxiety Constipation Vitamin D deficiency Asthma Osteoarthritis Type 2 diabetes mellitus with diabetic chronic kidney disease (Unknown) Diabetes Surgical History Hx of colonoscopy H/O total knee replacement Total knee replacement status History of endometrial ablation History of hand surgery H/O right knee surgery Family History Father Motor vehicle accident Mother Liver cancer Social History (Reviewed 04/09/25 @ 16:07 by ABBY Kim Housing: Apartment Alcohol intake: never Patient Tobacco Use Status: Never used Tobacco e-Cigarette/Vaping Use: Never Used Second Hand Smoke Exposure: Yes service: No Current occupational status: disabled Current occupational exposures/hazards: No Cognitive needs: No Hearing needs: No Vision needs: No Questionnaire PHQ-9 Over the last 2 weeks, how often have you been bothered by any of the following problems? 1. Little interest or pleasure in doing things: not at all 2. Feeling down, depressed, or hopeless: not at all 3. Trouble falling or staying asleep, or sleeping too much: not at all 4. Feeling tired or having little energy: not at all 5. Poor appetite or overeating: not at all 6. Feeling bad about yourself - or that you are a failure or have let yourself or your family down: not at all 7. Trouble concentrating on things, such as reading the newspaper or watching television: not at all 8. Moving or speaking so slowly that other people could have noticed. Or the opposite - being so fidgety or restless that you have been moving around a lot more than usual: not at all 9. Thoughts that you would be better off or of hurting yourself in some way: not at all Total score: 0 Depression Screening Interpretation: Negative Depression Screening Done: Yes 89361 - PHQ-9 Billing: Yes Source: Developed by Drs. Garland Whitaker, Shana Thomas, Josue Thompson and colleagues, with an educational aravind from [employer]. Thrive Questionnaire Date Thrive assessed: 04/09/25 I am a: Patient What is your living situation today?: I have a steady place to live Within the past 12 months, did the food you bought not last and you didn't have the money to get more?: I choose not to answer this question Within the past 12 months, did you worry whether your food would run out before you got money to buy more?: I choose not to answer this question Do you have trouble paying for medicines?: No Do you have trouble getting transportation to medical appointments?: No Do you have trouble paying your heating and electricity bill?: No Do you have trouble taking care of your child, family member or friend?: I choose not to answer this question Do you have trouble with day-to-day activities such as bathing, preparing meals, shopping, managing finances, etc.?: I choose not to answer this question Are you currently unemployed and looking for a job?: I choose not to answer this question Are you interested in more education?: I choose not to answer this question Please select the resources that you would like help with: None Currently or been in a relationship where the following occur: No concerns reported THRIVE Score: 0 AUDIT C Alcohol Use Questionnaire (AUDIT-C) 1. How often do you have a drink containing alcohol?: Never 3. How often do you have six or more drinks on one occasion?: Never Total Score: 0 Score Reviewed/Action Taken: Yes JOHN-7 AMB Questionnaire JOHN-7 Date JOHN - 7 assessed: 04/09/25 Feeling nervous, anxious, or on edge: 0 = Not at all Not being able to stop or control worryin = Not at all Worrying too much about different things: 0 = Not at all Trouble relaxin = Not at all Being so restless that it is hard to sit still: 0 = Not at all Becoming easily annoyed or irritable: 0 = Not at all Feeling afraid as if something awful might happen: 0 = Not at all Total JOHN-7 score (0-4 normal; 5-9 mild; 10-14 moderate; 15-21 severe): 0 Source: Developed by Drs. Garland Whitaker, Shana Thomas, Josue Thompson and colleagues, with an educational aravind from [employer]. Review of Systems Const Denies chills, Denies fatigue, Denies fever(s) and Denies headache(s) ENT Denies dysphagia, Denies dizziness, Denies otalgia, Denies headache(s), Denies neck pain, Denies odynophagia and Denies sore throat Card Denies chest pain, Denies palpitations and Denies dyspnea Resp Denies chest congestion, Denies cough and Denies dyspnea GI Reports abdominal pain (on and off epigastric pain / discomfort, including after eating), Denies constipation, Denies dysphagia, Denies heartburn, Denies diarrhea, Denies nausea, Denies odynophagia and Denies vomiting Denies difficulty voiding, Denies nocturia, Denies dysuria, Denies urinary hesitancy and Denies urinary urgency Musc Reports back pain (over the lower back), Reports arthralgias (knee - on and off; both shoulders - slightly worse on the left side) and Denies neck pain Skin/Breast Details: (+) couple of small raised lesions on the nasal side of the right upper eyelid Denies rash Neuro Denies dizziness and Denies headache(s) Endo Denies fatigue and Denies palpitations Physical exam (Primary Care) Vital Signs: Last Vital Signs Pulse 86 04/09/25 16:07 BP 130/84 04/09/25 16:07 Pulse Ox 96 04/09/25 16:07 Oxygen Delivery Method Room Air 04/09/25 16:07 BMI result Body Mass Index 52.1 Tobacco/Smoking Status: Tobacco use Status Tobacco use date assessed 04/09/25 04/09/25 16:08 Patient Tobacco Use Status Never used Tobacco 04/09/25 16:08 e-Cigarette/Vaping Use Never Used 04/09/25 16:08 PHQ-9: PHQ-9 Score PHQ-9: Total score 0 04/09/25 17:21 Depression Screening Interpretation: Negative Thrive Assessment: Date of Thrive Assessment Date Thrive assessed 04/09/25 04/09/25 16:08 Currently or been in a relationship where the following occur: No concerns reported Const General: no acute distress and alert HENMT Ears: TM's normal bilaterally and EAC's normal Throat: Yes posterior oropharynx normal and Yes tonsils normal (no TP congestion noted) Eyes Other: (+) 2 small flesh-colored, raised lesions at the nasal side of the right upper eyelid Neck Neck: Yes supple and No lymphadenopathy Thyroid: Thyroid normal Resp Auscultation: clear to auscultation bilaterally, no rales and no wheezes Cardio Rate: regular rate Rhythm: regular rhythm Heart sounds: no murmurs GI Palpation (GI): Soft to palpation and nontender Auscultation: normal bowel sounds General: Yes no CVA tenderness Back/Spine/Pelvis Back: no CVA tenderness Thoracic/Lumbar Spine: lumbar spinal tenderness (mild) Skin Rashes: no rashes Extrem General: Yes no clubbing, cyanosis or edema Right upper extremity: shoulder/upper arm Details: tenderness Location: of the A-C joint and normal ROM Left upper extremity: shoulder/upper arm Details: tenderness Location: of the A-C joint; ROM limited Right lower extremity: knee Details: tenderness; no swelling Results Reviewed Results Reviewed: Laboratory Tests 11/07/24 04/03/25 04/03/25 10:09 07:07 07:16 WBC 9.8 Hgb 15.6 Hct 48.9 H Plt Count 241 Sodium 146 H Potassium 3.9 Creatinine 0.80 Estimated GFR > 60 Fasting Glucose 96 Hemoglobin A1c % 5.5 Calcium 9.6 D AST 23 ALT 19 Triglycerides 114 Cholesterol 191 LDL Cholesterol, Calc 123 H HDL Cholesterol 46 25-OH Vitamin D Total 36.8 TSH 2.59 Ur Specific [place] 1.020 Urine Protein Negative Urine Glucose (UA) Negative Urine Blood Negative Urine Nitrite Negative Ur Leukocyte Esterase Negative Microalb/Creat Ratio 22.9 Coding Level of Care Code Est Pt Level 4 (97062) Complex EM visit Add On G2211 Diagnoses Pure hypercholesterolemia E78.00 Type 2 diabetes mellitus with stage 2 chronic kidney disease, with long-term current use of insulin E11.22; N18.2; Z79.4 Chronic kidney disease stage: stage 2 (mild) Diabetes mellitus medical terminologist insulin use: with medical terminologist use Right kidney mass N28.89 Mild intermittent asthma without complication J45.20 Asthma complication type: uncomplicated Asthma persistence: intermittent Asthma severity: mild Obstructive sleep apnea G47.33 Primary osteoarthritis involving multiple joints M89.49 Osteoarthritis location: multiple joints Osteoarthritis type: primary Epigastric pain R10.13 GERD without esophagitis K21.9 Vitamin D deficiency E55.9 Constipation, unspecified constipation type K59.00 Constipation type: unspecified constipation type Morbid obesity with BMI of 50.0-59.9, adult E66.01; Z68.43 Additional Codes PHQ-9 - 97103 - PHQ-9 Billing: Yes ([id number]) Assessment & Plan Assessment & Plan (1) Pure hypercholesterolemia: Code(s): E78.00 - Pure hypercholesterolemia, unspecified Category: Medical Plan: Results of her labs done last week reviewed and discussed with patient - her cholesterol levels have improved slightly from previous Reinforced low cholesterol diet Continue Simvastatin 20 mg QD Will recheck her labs and fasting lipids in 4 months for follow up (2) Type 2 diabetes mellitus with diabetic chronic kidney disease: Onset Date: Unknown Code(s): E11.22 - Type 2 diabetes mellitus with diabetic chronic kidney disease Category: Medical Qualifiers: Chronic kidney disease stage: stage 2 (mild) Diabetes mellitus residential insulin use: with medical terminologist use Qualified Code(s): E11.22 - Type 2 diabetes mellitus with diabetic chronic kidney disease; N18.2 - Chronic kidney disease, stage 2 (mild); Z79.4 - retirement (current) use of insulin Plan: Her HgbA1c again remains unchanged at 5.5% on her recent labs (HgbA1c was previously also at 5.5% a few months ago) - goal is < 7.0% Reinforced diabetic diet Continue Lantus 20 units SQ Q HS and Humalog 3 times a day with meals per sliding scale although patient states that she has not needed to take her Humalog in a while now as her blood sugar has been very well-controlled She is also currently on semaglutide 0.5 mg SQ once a week - states that she was instructed by Dr. Villegas to speak to her PCP about having her dosage increased to help her lose weight Per request, we will increase her semaglutide to 1 mg SQ once a week - patient is instructed to stop taking this and check back with us RUSSELL if she starts experiencing any increased abdominal pain or recurrent hypoglycemic episodes when she starts taking the higher dose of semaglutide (3) Right kidney mass: Code(s): N28.89 - Other specified disorders of kidney and ureter Category: Medical Plan: This was seen incidentally on her abdominal US when patient was sent for imaging studies for her abdominal pain Will send patient for abdominal CT with and without contrast (renal protocol) for further evaluation (4) Asthma: Code(s): J45.909 - Unspecified asthma, uncomplicated Category: Medical Qualifiers: Asthma complication type: uncomplicated Asthma persistence: intermittent Asthma severity: mild Qualified Code(s): J45.20 - Mild intermittent asthma, uncomplicated Plan: Controlled - continue Albuterol HFA 2 inhalations 4 times a day PRN (5) Obstructive sleep apnea: Code(s): G47.33 - Obstructive sleep apnea (adult) (pediatric) Category: Medical Plan: Patient continues to use her CPAP device when sleeping at night everyday Follow up with sleep medicine as scheduled (6) Osteoarthritis: Comment: involving multiple joints Code(s): M19.90 - Unspecified osteoarthritis, unspecified site Category: Medical Qualifiers: Osteoarthritis location: multiple joints Osteoarthritis type: primary Qualified Code(s): M89.49 - Other hypertrophic osteoarthropathy, multiple sites Plan: S/P total right knee arthroplasty on 07/18/2020 and S/P rehab/physical therapy Shoulder x-rays done a couple of years ago revealed (+) significant/severe OA changes in both shoulders Continue Tramadol 50 mg TID PRN for pain Follow-up with Orthopedics as scheduled (7) Epigastric pain: Code(s): R10.13 - Epigastric pain Category: Medical Plan: Abdominal ultrasound done a few months ago revealed (+) cholelithiasis, with no wall thickening or tenderness noted; (+) mildly increased liver echogenicity but no focal lesion seen. There is a lesion at the pole of the right kidney and recommend further evaluation with CT or MRI without and with contrast Dietary restrictions reinforced She was previously on Pantoprazole 40 mg QD but this was changed over to famotidine 20 mg Q HS by GI She has been advised that her recent weight gain may have precipitated the worsening of her acid reflux and GI symptoms and has been advised to lose weight She was also referred for her barium swallow for further evaluation Patient states that she is also being scheduled for repeat colonoscopy and potentially upper endoscopy in the near future depending on how her test results come out Follow-up with GI as scheduled (8) GERD without esophagitis: Code(s): K21.9 - Gastro-esophageal reflux disease without esophagitis Category: Medical Plan: Dietary restrictions reinforced Continue Famotidine 20 mg Q HS (9) Vitamin D deficiency: Code(s): E55.9 - Vitamin D deficiency, unspecified Category: Medical Plan: Continue Vitamin D3 1000 units QD (10) Constipation: Code(s): K59.00 - Constipation, unspecified Category: Medical Qualifiers: Constipation type: unspecified constipation type Qualified Code(s): K59.00 - Constipation, unspecified Plan: Reinforced increased oral fluids and dietary fiber Continue MiraLax 17 gm QD and Metamucil 2 capsules TID PRN (11) Morbid obesity with BMI of 50.0-59.9, adult: Code(s): E66.01 - Morbid (severe) obesity due to excess calories; Z68.43 - Body mass index [BMI] 50.0-59.9, adult Category: Medical Plan: Reinforced diet; exercise and weight loss are not realistic given her physical issues but patient is on Semaglutide and has been able to lose some more weight since her last visit Per request, will try increasing her Semaglutide to 1 mg SQ Q week Will also refer her to Weight Management at [place], per her request, to help her with weight loss Plan Follow up in 4 months Orders: Orders Complete Blood Count Auto Diff 4 Months D64.9 - Anemia, unspecified Microalbumin, Random (w Creat) 4 Months E11.9 - Type 2 diabetes mellitus without complications TSH reflex Free T4 4 Months E78.00 - Pure hypercholesterolemia, unspecified UA CC w/rflx Micro + Cult 4 Months R30.0 - Dysuria Vitamin D 25-OH Total 4 Months E55.9 - Vitamin D deficiency, unspecified CT abdomen wo/w IV con 04/09/25 N28.89 - Other specified disorders of kidney and ureter Hemoglobin A1c 4 Months E11.9 - Type 2 diabetes mellitus without complications Lipid Panel 4 Months E78.00 - Pure hypercholesterolemia, unspecified Comprehensive [place]. Panel Fast 4 Months E78.00 - Pure hypercholesterolemia, unspecified Vitamin B12 and Folate 4 Months E53.8 - Deficiency of other specified B group vitamins Referrals Medical Weight Management Referral E66.01 - Morbid (severe) obesity due to excess calories, Z68.42 - Body mass index [BMI] 45.0-49.9, adult Medications: Changed From semaglutide (Ozempic) 0.5 mg (0.374 mL) subcut QWEEK 12 weeks 4.8 mL 3RF E11.22 - Type 2 diabetes mellitus with diabetic chronic kidney disease, N18.2 - Chronic kidney disease, stage 2 (mild), Z79.4 - retirement (current) use of insulin To semaglutide 1 mg (0.75 mL) subcut QWEEK 9 mL 3RF 12 weeks E11.22 - Type 2 diabetes mellitus with diabetic chronic kidney disease, N18.2 - Chronic kidney disease, stage 2 (mild), Z79.4 - retirement (current) use of insulin
== END 2025-04-09 17:39 | disposition home or self-care (01) ==
LOC: HO.HMCH 16:06
PROVIDERS: PCP Internal Medicine; Visit Provider Internal Medicine
DX: E11.22 Type 2 diabetes mellitus with diabetic chronic kidney disease (principal); Z79.4 Long term (current) use of insulin; E66.01 Morbid (severe) obesity due to excess calories; Z68.43 Body mass index [BMI] 50.0-59.9, adult; N18.2 Chronic kidney disease, stage 2 (mild); E78.00 Pure hypercholesterolemia, unspecified; N28.89 Other specified disorders of kidney and ureter; J45.20 Mild intermittent asthma, uncomplicated; G47.33 Obstructive sleep apnea (adult) (pediatric); M89.49 Other hypertrophic osteoarthropathy, multiple sites; R10.13 Epigastric pain; K21.9 Gastro-esophageal reflux disease without esophagitis

== ENCOUNTER → 2025-04-09 16:05 | Outpatient (BNVA) | payer OTHER, SELFPAY | PROVIDERS: PCP Internal Medicine; Visit Provider Internal Medicine | DX: E11.22 Type 2 diabetes mellitus with diabetic chronic kidney disease (principal); E78.00 Pure hypercholesterolemia, unspecified; N18.2 Chronic kidney disease, stage 2 (mild); N28.89 Other specified disorders of kidney and ureter; J45.20 Mild intermittent asthma, uncomplicated; G47.33 Obstructive sleep apnea (adult) (pediatric); M89.49 Other hypertrophic osteoarthropathy, multiple sites; R10.13 Epigastric pain; K21.9 Gastro-esophageal reflux disease without esophagitis; K59.00 Constipation, unspecified; E66.01 Morbid (severe) obesity due to excess calories; Z68.43 Body mass index [BMI] 50.0-59.9, adult; Z79.4 Long term (current) use of insulin | CPT/HCPCS: 96127; 99212 ==

== ENCOUNTER 2025-05-18 09:09 | Outpatient (REF) | payer OTHER, SELFPAY ==
--- NOTE | ~2025-05-18 | FL_ITS ---
EXAMINATION: XR FLUOROSCOPY BARIUM SWALLOW CLINICAL INFORMATION: Epigastric abdominal pain. COMPARISON: None TECHNIQUE: Fluoroscopic air contrast esophagram examination was performed utilizing standard techniques with thin and thick barium and effervescent granules. Numerous spot images were obtained. Several fluoroscopic image hold cine sequences were also obtained. FINDINGS: Study is significantly limited as the patient was unable to tolerate prone or MAZA positioning, and could only tolerate limited decubitus positioning for the examination. This significantly limits the sensitivity of the study. UPPER GI SERIES: Lateral cine images of the oropharynx and hypopharynx demonstrate normal swallow mechanism with normal epiglottic inversion and soft palate elevation. No laryngeal penetration, glottic or subglottic aspiration identified. No nasopharyngeal reflux present. Hypopharyngeal structures appear normal without evidence of mass or diverticulum. There was no significant cricopharyngeal achalasia. Dual and single contrast images of the esophagus demonstrate normal caliber, contour, and mucosal pattern. No evidence of stricture, mass, or ulcerations identified. Esophageal peristalsis was normal. Grossly no evidence of large or moderate sized hiatus hernia seen. No gastroesophageal reflux observed during the course of the limited exam. Limited images of the partially coated stomach demonstrated normal contour and rugal fold pattern. No gross ulceration or mass. Prominence of the area gastricae suggests gastritis. Contrast did pass into the gastric antrum and duodenal bulb without significant delay. FLUOROSCOPY TIME: 1 minute, 9 seconds Number of Spot Images:4 Number of cines obtained: 6 DOSE AREA PRODUCT: 2033 uGy-m2 (microgray-meter squared) FL/FL barium swallow IMPRESSION: 1. Significantly limited exam due to patient immobility. 2. No evidence of significant hiatus hernia. No gastroesophageal reflux observed during the course of the exam. 3. Prominence of the areae gastricae of the stomach, suggesting gastritis. Electronically signed by: Dmitriy Rojas MD 05/18/2025 11:13 AM EDT
--- OUTSIDE RECORDS SUMMARY | 2025-05-18 09:28 | XMS_ITS | Clinical Summary ---
Author Organization 175 [facility] Address 175 [place] [address] Phone Care Team Providers Care Dredge Lever Operator Name Role Phone Turner Mccormack MD Primary Care Provider [phone] Social History Tobacco Use Types Packs/Day Years [...] on file Obstetrics History Plan of Treatment Upcoming Encounters Date Type Department Care Team ([facility] st Contact Info) Description 12/02/2025 3:30 PM EST Office Visit Bariatric Surgery - [place] [address] [address] Kevin Shay MD [address] [address] Health Maintenance Due Date Last Done Comments Breast Cancer Screening 1964 DTaP,Tdap,and Td Vaccines (1 - Tdap) 1983 Cervical Cancer Screening: P ap Smear 1985 Pneumococcal Vaccine: 50+ Ye ars (1 of 1 - PCV) 2014 Zoster Vaccines (1 of 2) 2014 COVID-19 Vaccine ( - 2023-2 5 season) 2024 Depression Screening 10/14/2024 Colorectal Cancer Screening: Colonoscopy 04/12/2025 HIV Screening 04/12/2025 Hepatitis C Screening 04/12/2025 Social Influencers of Health Screening 04/12/2025 Influenza Vaccine (#1) 2025 RSV Immunization Adult Patie nts (1 [...] on patient's age to complete this topic Insurance [facility] Member Subscriber Plan / Payer (Ef fective 2021-Present) Name:CHRISTEL SWIFT Relation to Subscriber:Self Name:Christel Swift Payer ID:[id number] Group ID:[id number] Type:Not on file Address: [place] [address] [address] [phone] Care Teams Dredge Lever Operator Relationship Specialty Start Date End Date Turner Mccormack MD PCP - General Internal Medicine 04/12/25
== END 2025-05-18 09:10 | disposition home or self-care (01) ==
LOC: HO.XRAY 09:09
PROVIDERS: PCP Internal Medicine; Visit Provider Internal Medicine
DX: R10.13 Epigastric pain (principal); K21.9 Gastro-esophageal reflux disease without esophagitis
CPT/HCPCS: 74220

== ENCOUNTER → 2025-05-18 09:11 | Outpatient (BNV) | payer OTHER, SELFPAY | PROVIDERS: PCP Internal Medicine; Visit Provider Radiology Diagnostic Radiology | DX: R10.13 Epigastric pain (principal) | CPT/HCPCS: 74221 ==

== ENCOUNTER → 2025-06-09 14:08 | Outpatient (AMB) | payer OTHER, SELFPAY ==
--- NOTE | 2025-06-09 14:19 | MHC.OFFVIS ---
Vital Signs 06/09/25 14:21 Height 5 ft 3 in Weight 292 lb BMI 51.7 BP 136/76 Blood Pressure Location Lt brachial Position Sitting Pulse 87 Pulse Oximetry (%) 96 Oxygen Delivery Method Room Air Intake Visit Reasons: f/u ba swallow Intake Note: Patient follow up for Barium swallow Patient denies any Gi issues for today visit. Tubing Machine Operator Required: No Accompanied by: Spouse Allergies aspirin (ASA) Allergy (Unknown, Verified 06/09/25 14:19) RASH ,SWELLING atorvastatin Adverse Reaction (Unknown, Verified 06/09/25 14:19) constipation ibuprofen (Advil) Adverse Reaction (Unknown, Verified 06/09/25 14:19) Unknown HPI Comments Details: 59 y.o F with PMH of who is here for upper GI sx. Reports sensation of discomfort and burning post prandially retrosternally. Sx started almost 4 months ago. Assoc with bloating and belching. No N/V. Sx get worse with laying down. BM are unchanged. No regurgitation. Sx predominantly during evening. no dysphagia or odynophagia. Takes pantoprazole as needed - 1-2 times a week. Of note - pt has also gained significant weight in the last 2 years. BMI 48--> 53 now. Pt also due for colo for screening. [place] 2014 (Dr Blackburn) good prep to cecum. Hemorrhoids. No polyps. 05/18/25: 1. Significantly limited exam due to patient immobility. 2. No evidence of significant hiatus hernia. No gastroesophageal reflux observed during the course of the exam. 3. Prominence of the areae gastricae of the stomach, suggesting gastritis. 06/09/25: Patient here with her . Seated in a wheelchair. Reports good response to symptoms with famotidine. Now only has to take it 2 or 3 times a week, was previously taking every day. No nausea, vomiting, difficulty swallowing. Referral was sent to bariatric [facility], however patient prefers to follow-up with [facility] bariatric medicine. Seeing Dr. Shay, next appointment is in October In terms of colorectal cancer screening, she is due for colonoscopy. Wanted to defer the discussion to this visit. Is agreeable to colonoscopy. Incidentally noted chart review today was POSITIVE FOBT 2021 (under scanned notes matrix labs). She does not recall being referred for colo at that time. [facility] Medical History Morbid obesity with BMI of 50.0-59.9, adult GERD without esophagitis Primary osteoarthritis of shoulders, bilateral Obstructive sleep apnea Pure hypercholesterolemia Morbid obesity with BMI of 45.0-49.9, adult Anxiety Constipation Vitamin D deficiency Asthma Osteoarthritis Type 2 diabetes mellitus with diabetic chronic kidney disease (Unknown) Diabetes Surgical History Hx of colonoscopy H/O total knee replacement Total knee replacement status History of endometrial ablation History of hand surgery H/O right knee surgery Family History Father Motor vehicle accident Mother Liver cancer Social History Housing: Apartment Alcohol intake: never Patient Tobacco Use Status: Never used Tobacco e-Cigarette/Vaping Use: Never Used Second Hand Smoke Exposure: Yes service: No Current occupational status: disabled Current occupational exposures/hazards: No Cognitive needs: No Hearing needs: No Vision needs: No Review of Systems Const All systems reviewed & are unremarkable except as noted in HPI and below Physical Exam Exam Exam: No apparent distress, obese Nonicteric Abdomen soft, nondistended Alert and oriented x3, seated in a wheelchair Vital Signs: Last Vital Signs Pulse 87 06/09/25 14:21 BP 136/76 06/09/25 14:21 Pulse Ox 96 06/09/25 14:21 Oxygen Delivery Method Room Air 06/09/25 14:21 BMI result Body Mass Index 51.7 Assessment & Plan Assessment & Plan (1) Epigastric pain: Code(s): R10.13 - Epigastric pain Category: Medical (2) Acid reflux: Code(s): K21.9 - Gastro-esophageal reflux disease without esophagitis Category: Medical (3) Morbid obesity with BMI of 50.0-59.9, adult: Code(s): E66.01 - Morbid (severe) obesity due to excess calories; Z68.43 - Body mass index [BMI] 50.0-59.9, adult Category: Medical (4) Severe obstructive sleep apnea: Code(s): G47.33 - Obstructive sleep apnea (adult) (pediatric) Category: Medical (5) Colon cancer screening: Code(s): Z12.11 - Encounter for screening for malignant neoplasm of colon Category: Medical Plan Discussed with the patient that worsening acid reflux is likely secondary to worsening obesity. BMI 53 now. This has likely compromised her physiological anti-reflux barrier. She also has other comorbidities 2/2 to this including DM, severe MALI, OA, hepatic steatosis. She was advised regarding low impact exercises to help with weight loss. Portion control. Has had good response to famotidine. Has sx < 50% of the time now. No red flags to warrant urgent endoscopy at this time. She is due for screening colo. Reviewed risks of anesthesia given underlying BMI, severe MALI. Reports that she also sees Cardiology, but is unsure for what condition. Will get records and /or clearance as needed. Plan: - Cont famotidine 20 mg at bedtime as needed - wedge pillow when resting/sleeping - colonoscopy to be booked. Patient requests Suprep. Instructions reviewed and handout given to the patient - advised regarding compliance with CPAP. Will also get records from communication coordinator. Follow-up after colonoscopy Medications: New sodium,potassium,mag sulfates 17.5-3.13-1.6 gram (Suprep Bowel Prep Kit) DILUTE; as per instructions given by [facility] GI 354 mL 0RF Coding Level of Care Code Est Pt Level 4 (31162) Diagnoses Epigastric pain R10.13 Acid reflux K21.9 Morbid obesity with BMI of 50.0-59.9, adult E66.01; Z68.43 Severe obstructive sleep apnea G47.33 Colon cancer screening Z12.11
[2025-06-09 14:21] VITALS: BP 136/76; PULSE 87; O2SAT 96; BMI 51.7
--- OUTSIDE RECORDS SUMMARY | 2025-06-09 15:08 | XMS_ITS | Clinical Summary ---
Author Organization 175 [facility] Address 175 [place] [address] Phone Care Team Providers Care Crusher And Binder Operator Name Role Phone Turner Mccormack MD Primary Care Provider Social History Tobacco Use Types Packs/Day Years [...] Upcoming Encounters Date Type Department Care Team ([facility] st Contact Info) Description 12/02/2025 3:30 PM EST Office Visit Bariatric Surgery - [place] 175 [facility] [address] [place] [address] Kevin Shay MD [address] [place] [phone] Health Maintenance Due Date Last Done Comments [...] patient's age to complete this topic Insurance [facility] Member Subscriber Plan / Payer (Ef fective 2021-Present) Name:CHRISTEL SWIFT Relation to Subscriber:Self Name:Christel Swift Payer ID:[id number] Group ID:[id number] Type:Not on file Address: [place] [address] [address] [phone] Care Teams Crusher And Binder Operator Relationship Specialty Start Date End Date Turner Mccormack MD PCP - General Internal Medicine 04/12/25
== END ==
LOC: HO.HGI 14:09
PROVIDERS: PCP Internal Medicine; Visit Provider Internal Medicine
DX: R10.13 Epigastric pain (principal); K21.9 Gastro-esophageal reflux disease without esophagitis; E66.01 Morbid (severe) obesity due to excess calories; Z68.43 Body mass index [BMI] 50.0-59.9, adult; G47.33 Obstructive sleep apnea (adult) (pediatric)
CPT/HCPCS: 99214

== ENCOUNTER → 2025-06-09 14:08 | Outpatient (BNVA) | payer OTHER, SELFPAY | PROVIDERS: PCP Internal Medicine; Visit Provider Internal Medicine | DX: Z01.818 Encounter for other preprocedural examination (principal); R10.13 Epigastric pain; K21.9 Gastro-esophageal reflux disease without esophagitis | CPT/HCPCS: 99212 ==

== ENCOUNTER 2025-06-15 12:56 | Outpatient (REF) | payer OTHER, SELFPAY ==
--- NOTE | ~2025-06-15 | CT_ITS ---
EXAMINATION: CT ABDOMEN WITHOUT AND WITH CONTRAST CLINICAL INFORMATION: N28.89 - Other specified disorders of kidney and ureter , vascularized mass in the mid right kidney on ultrasound COMPARISON: Abdomen ultrasound December 16, 2024 TECHNIQUE: Contiguous axial thin section helical images of the abdomen were performed before and after the administration of IV contrast 85 mL of Omnipaque 350 intravenous contrast. The data set was reformatted in the coronal and sagittal planes and reviewed on an independent workstation. This CT examination was performed using dose optimization techniques as appropriate, variously including the following: *Automated exposure control *Adjustment of mA and/or kV according to patient size (this includes techniques or standardized protocols for targeted exams where dose is matched to indication/reason for exam; i.e. extremities or head) *Use of iterative reconstruction technique DLP: 1103 mGY*cm FINDINGS: LUNG BASES: Clear LIVER, GALLBLADDER, AND BILIARY TREE: The liver is homogeneous. Gallbladder is within normal. There is no biliary ductal dilation. PANCREAS: Unremarkable SPLEEN: Unremarkable ADRENAL GLANDS : Unremarkable KIDNEYS: There is malrotation of the right kidney. The long axis is oriented anterior to posterior. On prior ultrasound, there is a hypoechoic mass in the mid right kidney with blood flow on color Doppler measuring 2.8 x 3.0 cm. On the current study, there is a subtle lesion in the mid right kidney that is slightly heterogeneous but nearly isointense to renal parenchyma both before and after contrast. There are a few likely punctate calcifications. Margins are very indistinct and it measures approximately 2.8 x 3.9 cm (transverse by AP). There are several small renal stones in the right kidney not resulting in obstruction. The largest measures 3 mm and is centrally located. 2 punctate stones are present in the left kidney measuring 2-3 mm. There is a 1.0 cm lesion in the superior pole. The lesion is not clearly visible on the unenhanced exam. On the enhanced exam, there is suspicion of an enhancing mural nodule (axial CT #5 image 290/436). However, the lesion is very small and this could be related to volume averaging. BOWEL LOOPS: Visualized bowel is unremarkable. LYMPH NODES: Normal. VASCULAR: Minimal multifocal atherosclerotic ossifications. BONES: Bridging osteophytes are present in the anterior lower thoracic spine. CT/CT abdomen wo/w IV con IMPRESSION: There is a mass in the mid right kidney that was much more evident on prior ultrasound. The lesion is very ill-defined on CT and demonstrates enhancement concerning for renal cell carcinoma. There is a 1 cm lesion in the superior left kidney that is too small to characterize. There is question of an enhancing mural nodule versus volume averaging. Bosniak IIF. Follow-up CT or MRI abdomen without and with IV contrast in 6 months, again in 12 months, then annual CT until 5 years. Bilateral nonobstructing kidney stones. Fleischner guidelines were followed. Electronically signed by: Reginald Ritchie MD 06/15/2025 02:46 PM EDT
--- OUTSIDE RECORDS SUMMARY | 2025-06-15 14:12 | XMS_ITS | Clinical Summary ---
Author Organization 175 [facility] Address 175 [place] [address] Phone Care Team Providers Care Crimper Operator Name Role Phone Turner Mccormack MD [...] Upcoming Encounters Date Type Department Care Team ([facility] st Contact Info) Description 12/02/2025 3:30 PM EST Office Visit Bariatric Surgery - [place] 175 [facility] [address] [place] [address] Kevin Shay MD [address] [place] [phone] Health Maintenance Due Date Last Done Comments Breast Cancer Screening 1964 DTaP,Tdap,and Td Vaccines (1 - Tdap) 1983 Cervical Cancer Screening: P ap Smear 1985 Pneumococcal Vaccine: 50+ Ye ars (1 of 1 - PCV) 2014 Zoster Vaccines (1 of 2) 2014 Depression Screening 10/14/2024 Colorectal Cancer Screening: Colonoscopy 04/12/2025 HIV Screening 04/12/2025 Hepatitis C Screening 04/12/2025 Social Influencers of Health Screening 04/12/2025 COVID-19 Vaccine (1 - 2023-2 5 season) 2025 Influenza Vaccine (#1) 2025 RSV Immunization Adult [...] patient's age to complete this topic Insurance [facility] Member Subscriber Plan / Payer (Ef fective 2021-Present) Name:CHRISTEL SWIFT Relation to Subscriber:Self Name:Christel Swift Payer ID:[id number] Group ID:[id number] Type:Not on file Address: [place] [address] [place] [phone] Care Teams Crimper Operator Relationship Specialty Start Date End Date Turner Mccormack MD PCP - General Internal Medicine 04/12/25
[2025-06-15 14:22] LABS: Creatinine POC 0.8 mg/dL (0.5-1.4); GFR POC > 60
== END 2025-06-15 12:57 | disposition home or self-care (01) ==
LOC: HO.CT 12:56
PROVIDERS: PCP Internal Medicine; Visit Provider Internal Medicine
DX: N28.89 Other specified disorders of kidney and ureter (principal)
CPT/HCPCS: 74170; 82565

== ENCOUNTER → 2025-06-15 12:59 | Outpatient (BNV) | payer OTHER, SELFPAY | PROVIDERS: PCP Internal Medicine; Visit Provider Radiology Diagnostic Radiology | DX: N20.0 Calculus of kidney (principal); D49.512 Neoplasm of unspecified behavior of left kidney; R93.422 Abnormal radiologic findings on diagnostic imaging of left kidney | CPT/HCPCS: 74170 ==

== ENCOUNTER 2025-07-31 08:17 | Outpatient (REF) | payer OTHER, SELFPAY ==
--- OUTSIDE RECORDS SUMMARY | 2025-07-31 08:20 | XMS_ITS | Clinical Summary ---
Author Organization 175 [facility] Address 175 [place] [address] Phone Care Team Providers Care Route Delivery Manager Name Role Phone Turner Mccormack MD Primary Care Provider [phone] Social History Tobacco Use Types Packs/Day Years [...] Upcoming Encounters Date Type Department Care Team ([facility] st Contact Info) Description 12/02/2025 3:30 PM EST Consult Bariatric Surgery - [place] 175 [facility] [address] [place] [address] Kevin Shay MD [address] [place] [phone] Health Maintenance Due Date Last Done Comments Breast Cancer Screening 1964 Colorectal Cancer Screening: Colonoscopy 1964 DTaP,Tdap,and Td Vaccines (1 - Tdap) 1983 Cervical Cancer Screening: P ap Smear 1985 Pneumococcal Vaccine: 50+ Ye ars (1 of 1 - PCV) 2014 Zoster Vaccines (1 of 2) 2014 Depression Screening 10/14/2024 HIV Screening 04/12/2025 Hepatitis C Screening 04/12/2025 [...] patient's age to complete this topic Insurance [facility] Member Subscriber Plan / Payer (Ef fective 2021-Present) Name:CHRISTEL SWIFT Relation to Subscriber:Self Name:Christel Swift Payer ID:[id number] Group ID:[id number] Type:Not on file Address: [place] [address] [address] [address] [phone] Care Teams Route Delivery Manager Relationship Specialty Start Date End Date Turner Mccormack MD PCP - General Internal Medicine 04/12/25
[2025-07-31 09:12] LABS: MANUAL DIFF FLAG NO
[2025-07-31 10:04] LABS: Hematocrit 46.5 % (37.0-47.0); Hemoglobin 15.0 g/dl (12.0-16.0); Imm Gran Abs Auto 0.01 X10*3/uL (0.00-0.03); Imm Gran Pct Auto 0.1 % (0.0-0.4); Lymphocytes Absolute Auto 2.3 X10*3/uL (1.2-4.9); Mean Corpuscular HGB Conc 32.3 g/dl (31.0-35.0); Mean Corpuscular Hemoglobin 27.2 pg (27.0-33.0); Mean Corpuscular Volume 84.4 fL (80.0-98.0); NRBC Abs Auto 0.000 X10*3/uL (0.0-0.012); NRBC Pct Auto 0.0 /100WBC (0.0-0.2); Platelet Count 199 X10*3/uL (160-400); Red Blood Count 5.51 X10*6/uL (4.20-5.50); White Blood Count 7.8 X10*3/uL (4.8-10.8)
[2025-07-31 10:52] LABS: Appearance Urine Clear; Glucose Urine UA Negative (Negative); PH 6.0 (5.0-9.0); Specific Gravity - Urine 1.020 (1.005-1.025)
[2025-07-31 10:58] LABS: Alanine Aminotransferase 16 U/L (0-31); Albumin Level 4.0 g/dL (3.5-5.0); Alkaline Phosphatase 87 U/L (39-117); Anion Gap 15 (12-20); Aspartate Amino Transferase 23 U/L (5-31); Blood Urea Nitrogen 13 mg/dL (9-16); Calcium 8.7 mg/dL (8.4-10.2); Carbon Dioxide 27 mmol/L (22-29); Chloride 109 mmol/L (96-108); Cholesterol 185 mg/dL (<200); Estimated Glomerular Filt Rate > 60; HDL Cholesterol 38 mg/dL (>40); Potassium 4.7 mmol/L (3.3-5.1); Sodium 146 mmol/L (135-145); Total Protein 7.4 g/dL (6.5-8.0); Triglycerides 164 mg/dL (<150)
[2025-07-31 11:25] LABS: Folate 6.3 ng/mL (> or = 4.0); Vitamin B12 303 pg/mL (200-900)
[2025-07-31 11:28] LABS: Microalbum/Creatinine Ratio Ur 18.7 ug/mg cr (<30)
== END 2025-07-31 08:18 | disposition home or self-care (01) ==
LOC: HO.LAB 08:17
PROVIDERS: PCP Internal Medicine; Visit Provider Internal Medicine
DX: E11.9 Type 2 diabetes mellitus without complications (principal); E53.8 Deficiency of other specified B group vitamins; E78.00 Pure hypercholesterolemia, unspecified; E55.9 Vitamin D deficiency, unspecified; D64.9 Anemia, unspecified; R30.0 Dysuria
CPT/HCPCS: 36415; 80053; 80061; 81003; 82043; 82306; 82570; 82607; 82746; 83036; 84443; 85025

== ENCOUNTER 2025-08-03 15:44 | Outpatient (AMB) | payer OTHER, SELFPAY ==
[2025-08-03 15:51] VITALS: BP 126/80; PULSE 86; O2SAT 96; BMI 52.1
--- NOTE | 2025-08-03 15:51 | A.OFFPC_ITS ---
Vital Signs 08/03/25 15:51 Height 5 ft 3 in Weight 294 lb BMI 52.1 BP 126/80 Blood Pressure Location Lt brachial Position Sitting Pulse 86 Pulse Source Pulse Oximeter Pulse Oximetry (%) 96 Oxygen Delivery Method Room Air Intake Visit Reasons: 4 month f/u Sales And Service Advisor Required: No Accompanied by: Self / Same As Patient Allergies aspirin (ASA) Allergy (Unknown, Verified 08/03/25 16:22) RASH ,SWELLING atorvastatin Adverse Reaction (Unknown, Verified 08/03/25 16:22) constipation ibuprofen (Advil) Adverse Reaction (Unknown, Verified 08/03/25 16:22) Unknown Medication List - Last Reconciled 08/03/25 by Turner Mccormack MD [Bariatric walker As directed] albuterol sulfate 90 mcg/actuation (Ventolin HFA) 1 inh inhalation QID PRN blood pressure monitor As directed blood sugar diagnostic (FreeStyle Lite Strips) TEST 3 TIMES A DAY - E11.9 blood-glucose meter (FreeStyle [place] Lite kit) freestyle lite lancets cholecalciferol (vitamin D3) 25 mcg PO DAILY 90 days cholecalciferol (vitamin D3) 10 mcg PO DAILY [CPAP Device and all related accessories As directed] [CPAP DEVICE and ALL RELATED ACCESSORIES As directed - Pressure Settings to start at 4 cm and gradually increase to 14 cm] famotidine 20 mg PO BEDTIME Humalog KwikPen Insulin (insulin lispro) 1 sliding scale dose subcut QIDACHS NS hydrocortisone 2.5% 1 appl topical BID PRN insulin glargine (Lantus Solostar U-100 Insulin) 10 units (0.1 mL) subcut DAILY insulin syr/ndl U100 half mayuri As directed 2 times per day lancets (FreeStyle Lancets) As directed 3 times a day melatonin 10 mg PO BEDTIME PRN 30 days Novolog FlexPen U-100 Insulin (insulin aspart U-100) Inject DIRECTED (dosed according to sliding scale) 4 times a day with meals and at bedtime PER SLIDING SCALE 125 - 150 2 units Insulin subq 151 - 200 4 units Insulin subq 201 - 250 6 units Insulin subq 251 - 300 8 units Insulin subq 301 - 350 10 units Insulin subq 351 - 400 12 units Insulin subq 30 days NS pen needle, diabetic USE 4 TIMES A DAY [ROLLATOR As directed] semaglutide 1 mg (0.75 mL) subcut QWEEK 12 weeks [SHOWER CHAIR (extra-large/heavy duty) As directed] simethicone (Gas Relief (simethicone)) 125 mg PO BID-QID PRN simvastatin 20 mg PO BEDTIME 90 days sodium,potassium,mag sulfates 17.5-3.13-1.6 gram (Suprep Bowel Prep Kit) DILUTE; as per instructions given by [facility] tizanidine 4 mg PO Q8H PRN 10 days tramadol 50 mg PO TID PRN 30 days [wedge pillow at night time and for naps ] Tobacco use date assessed: 08/03/25 Dental Screening Dental Screen Date: 08/03/25 Did you have a dental visit in the last 12 months?: Yes Did you have a dental problem in the last 6 months where you did not have access to dental care?: No Was dental information given to patient?: Patient has dentist [facility] Medical History Morbid obesity with BMI of 50.0-59.9, adult GERD without esophagitis Primary osteoarthritis of shoulders, bilateral Obstructive sleep apnea Pure hypercholesterolemia Morbid obesity with BMI of 45.0-49.9, adult Anxiety Constipation Vitamin D deficiency Asthma Osteoarthritis Type 2 diabetes mellitus with diabetic chronic kidney disease (Unknown) Diabetes Surgical History Hx of colonoscopy H/O total knee replacement Total knee replacement status History of endometrial ablation History of hand surgery H/O right knee surgery Family History Father Motor vehicle accident Mother Liver cancer Social History Housing: Apartment Alcohol intake: never Patient Tobacco Use Status: Never used Tobacco e-Cigarette/Vaping Use: Never Used Second Hand Smoke Exposure: Yes service: No Current occupational status: disabled Current occupational exposures/hazards: No Cognitive needs: No Hearing needs: No Vision needs: No Questionnaire Thrive Questionnaire Date Thrive assessed: 04/09/25 I am a: Patient What is your living situation today?: I have a steady place to live Within the past 12 months, did the food you bought not last and you didn't have the money to get more?: I choose not to answer this question Within the past 12 months, did you worry whether your food would run out before you got money to buy more?: I choose not to answer this question Do you have trouble paying for medicines?: No Do you have trouble getting transportation to medical appointments?: No Do you have trouble paying your heating and electricity bill?: No Do you have trouble taking care of your child, family member or friend?: I choose not to answer this question Do you have trouble with day-to-day activities such as bathing, preparing meals, shopping, managing finances, etc.?: I choose not to answer this question Are you currently unemployed and looking for a job?: I choose not to answer this question Are you interested in more education?: I choose not to answer this question Please select the resources that you would like help with: None Currently or been in a relationship where the following occur: No concerns reported THRIVE Score: 0 AUDIT C Alcohol Use Questionnaire (AUDIT-C) 1. How often do you have a drink containing alcohol?: Never 3. How often do you have six or more drinks on one occasion?: Never Total Score: 0 Score Reviewed/Action Taken: Yes JOHN-7 AMB Questionnaire JOHN-7 Date JOHN - 7 assessed: 04/09/25 Source: Developed by Drs. Garland Whitaker, Shana Thomas, Josue Thompson and colleagues, with an educational aravind from [employer]. Physical exam (Primary Care) Vital Signs: Last Vital Signs Pulse 86 08/03/25 15:51 BP 126/80 08/03/25 15:51 Pulse Ox 96 08/03/25 15:51 Oxygen Delivery Method Room Air 08/03/25 15:51 BMI result Body Mass Index 52.1 Tobacco/Smoking Status: Tobacco use Status Tobacco use date assessed 08/03/25 08/03/25 15:57 Patient Tobacco Use Status Never used Tobacco 08/03/25 15:53 e-Cigarette/Vaping Use Never Used 08/03/25 15:53 Thrive Assessment: Date of Thrive Assessment Date Thrive assessed 04/09/25 08/03/25 15:53 Currently or been in a relationship where the following occur: No concerns reported Office Procedures Flu Questionnaire Does the patient have a severe egg allergy?: No Does the patient have severe life threatening allergies?: No Does the patient have a fever or illness today?: No Has the patient ever had Guillain-[place] Syndrome?: No Has the patient ever had any past reaction to a flu shot?: No Immunizations Fluarix 8082-0607 (PF) 45 mcg (15 mcg x 3)/0.5 mL IM syringe Performing Provider: Turner Mccormack MD [facility] Administered by: Symone De La Rosa RN on 08/03/25 16:52 Dose Route Admin Location Dispensed Lot Number Expiration Date NDC Reimbursement Auditor 0.5 mL IM Left Deltoid 0.5 mL [id number] 04/12/26 [id number] [employer] VIS Given Date VIS Provided VIS Publication Date 08/03/25 Single Vaccine 24 Eligibility Eligibility Date Funding Source Not [facility] Eligible 08/03/25 Private Results Reviewed Results Reviewed: Laboratory Tests 07/31/25 07/31/25 09:05 09:11 WBC 7.8 Hgb 15.0 Hct 46.5 Plt Count 199 Sodium 146 H Potassium 4.7 D Creatinine 0.66 Estimated GFR > 60 Fasting Glucose 90 Hemoglobin A1c % 5.5 Calcium 8.7 D AST 23 ALT 16 Triglycerides 164 H Cholesterol 185 LDL Cholesterol, Calc 115 H HDL Cholesterol 38 L Vitamin B12 303 25-OH Vitamin D Total 32.7 TSH 0.97 Ur Specific [place] 1.020 Urine Protein Negative Urine Glucose (UA) Negative Urine Blood Negative Urine Nitrite Negative Ur Leukocyte Esterase Negative Microalb/Creat Ratio 18.7 Coding Level of Care Code Est Pt Level 4 (29034) Assessment & Plan Assessment & Plan Plan Follow up in 3 months Orders: Orders Influenza [id number] Immunization Today Z23 - Encounter for immunization Referrals Urology Referral N28.89 - Other specified disorders of kidney and ureter Medications: New clobetasol 0.05% 1 appl topical BID PRN 30 grams 1RF rash/insect bite lesions 2 weeks cyclobenzaprine 10 mg PO BEDTIME PRN 30 tabs 0RF muscle spasm 30 days Discontinued tizanidine Discontinued Reason: Patient Completed Course 4 mg PO Q8H 10 days PRN 30 tabs 0RF muscle spasms/neck pain
--- OUTSIDE RECORDS SUMMARY | 2025-08-03 20:43 | XMS_ITS | Clinical Summary ---
Author Organization [address] [facility] Address [address] [place] [address] Phone Care Team Providers Care Card Game Operator Name Role Phone Turner Mccormack MD Primary Care Provider [phone] Social History Tobacco Use Types Packs/Day Years [...] Upcoming Encounters Date Type Department Care Team ([facility] st Contact Info) Description 12/02/2025 3:30 PM EST Consult Bariatric Surgery - [place] [address] [facility] [address] [place] [address] Kevin Shay MD [address] [place] [phone] Health Maintenance Due Date Last Done [...] patient's age to complete this topic Insurance [facility] Member Subscriber Plan / Payer (Ef fective 2021-Present) Name:CHRISTEL SWIFT Relation to Subscriber:Self Name:Christel Swift Payer ID:[id number] Group ID:[id number] Type:Not on file Address: [place] [address] [place] [phone] Care Teams Card Game Operator Relationship Specialty Start Date End Date Turner Mccormack MD PCP - General Internal Medicine 04/12/25
== END 2025-08-03 16:51 | disposition home or self-care (01) ==
LOC: HO.HMCH 15:45
PROVIDERS: PCP Internal Medicine; Visit Provider Internal Medicine
DX: Z23 Encounter for immunization (principal)

== ENCOUNTER → 2025-08-03 15:44 | Outpatient (BNVA) | payer OTHER, SELFPAY | PROVIDERS: PCP Internal Medicine; Visit Provider Internal Medicine | DX: M54.2 Cervicalgia (principal); M54.50 Low back pain, unspecified; N28.89 Other specified disorders of kidney and ureter; E78.00 Pure hypercholesterolemia, unspecified; E11.22 Type 2 diabetes mellitus with diabetic chronic kidney disease; N18.2 Chronic kidney disease, stage 2 (mild); J45.20 Mild intermittent asthma, uncomplicated; G47.33 Obstructive sleep apnea (adult) (pediatric); M89.49 Other hypertrophic osteoarthropathy, multiple sites; K29.70 Gastritis, unspecified, without bleeding; E55.9 Vitamin D deficiency, unspecified; K59.00 Constipation, unspecified; E66.01 Morbid (severe) obesity due to excess calories; Z68.43 Body mass index [BMI] 50.0-59.9, adult; Z79.4 Long term (current) use of insulin; Z23 Encounter for immunization | CPT/HCPCS: 90471; 90656; 99212 ==

== ENCOUNTER 2025-09-04 07:45 | Outpatient (REF) | payer OTHER, SELFPAY ==
--- NOTE | ~2025-09-04 | MM_ITS ---
EXAMINATION: MM SCREENING DIGITAL BREAST TOMOSYNTHESIS, BILATERAL CLINICAL INFORMATION: Screening. Asymptomatic. COMPARISON: Comparison made to multiple prior, most recent July 18, 2024, and most remote February 16, 2016. TECHNIQUE: Digital breast tomosynthesis is performed in mediolateral oblique and craniocaudal views along with computer-aided detection (CAD). Synthesized 2D images are generated from the tomosynthesis. FINDINGS: BREAST COMPOSITION: There are scattered areas of fibroglandular density. BILATERAL BREASTS: No significant masses, suspicious calcifications or other abnormalities are seen in either breast. MM/MM tomosynthesis screening BI IMPRESSION: BILATERAL BREASTS: Negative, no mammographic evidence of malignancy. Normal interval follow-up is recommended in 12 months. ASSESSMENT: BI-RADS: Category 1: Negative RECOMMENDATION: Routine annual mammography screening. FOLLOW-UP: 1 year F/U This examination should not preclude the clinical evaluation of a suspicious palpable abnormality. This patient's information was entered into a reminder system with a target due date for their next mammogram. Electronically signed by: Lucho Gilbert MD 09/06/2025 07:24 PM ANDI
--- OUTSIDE RECORDS SUMMARY | 2025-09-04 07:48 | XMS_ITS | Clinical Summary ---
Author Organization [address] [facility] Address [address] [place] [address] Phone Care Team Providers Care Blocker And Cutter Contact Lens Name Role Phone Turner Mccormack MD Primary [...] Upcoming Encounters Date Type Department Care Team ([facility] st Contact Info) Description 12/02/2025 3:30 PM EST Consult Bariatric Surgery - [place] [address] [facility] [address] [place] [address] Kevin Shay MD [address] [place] [phone] Health Maintenance Due Date Last Done [...] Health Screening 04/12/2025 COVID-19 Vaccine (1 - 2024-2 6 season) 2025 Influenza Vaccine (#1) 2025 RSV [...] patient's age to complete this topic Insurance [facility] Member Subscriber Plan / Payer (Ef fective 2021-Present) Name:CHRISTEL SWIFT Relation to Subscriber:Self Name:Christel Swift Payer ID:[id number] Group ID:[id number] Type:Not on file Address: [place] [address] [address] [phone] Care Teams Blocker And Cutter Contact Lens Relationship Specialty Start Date End Date Turner Mccormack MD PCP - General Internal Medicine 04/12/25
== END 2025-09-04 07:46 | disposition home or self-care (01) ==
LOC: HO.MAMMO 07:45
PROVIDERS: PCP Internal Medicine; Visit Provider Internal Medicine
DX: Z12.31 Encounter for screening mammogram for malignant neoplasm of breast (principal)
CPT/HCPCS: 77063; 77067

== ENCOUNTER → 2025-09-04 08:00 | Outpatient (BNV) | payer OTHER, SELFPAY | PROVIDERS: PCP Internal Medicine; Visit Provider Radiology Body Imaging | DX: Z12.31 Encounter for screening mammogram for malignant neoplasm of breast (principal) | CPT/HCPCS: 77063; 77067 ==

== ENCOUNTER 2025-09-24 14:34 | Outpatient (AMB) | payer OTHER, SELFPAY ==
--- NOTE | 2025-09-24 14:41 | MHC.OFFVIS ---
Intake Visit Reasons: Renal lesion (set(UA) Intake Note: New patient presents today for initial visit for renal lesion Urology Medication:None Blood Thinner:None Antibiotic Allergies:None Marine Underwriter Required: No Allergies aspirin (ASA) Allergy (Unknown, Verified 09/24/25 14:41) RASH ,SWELLING atorvastatin Adverse Reaction (Unknown, Verified 09/24/25 14:41) constipation ibuprofen (Advil) Adverse Reaction (Unknown, Verified 09/24/25 14:41) Unknown Medication List - Last Reconciled 09/24/25 by Jennifer Gustafson MD [Bariatric walker As directed] albuterol sulfate 90 mcg/actuation (Ventolin HFA) 1 inh inhalation QID PRN blood pressure monitor As directed blood sugar diagnostic (FreeStyle Lite Strips) TEST 3 TIMES A DAY - E11.9 blood-glucose meter (FreeStyle [place] Lite kit) freestyle lite lancets cholecalciferol (vitamin D3) 25 mcg PO DAILY 90 days cholecalciferol (vitamin D3) 10 mcg PO DAILY clobetasol 0.05% 1 appl topical BID PRN 2 weeks [CPAP Device and all related accessories As directed] [CPAP DEVICE and ALL RELATED ACCESSORIES As directed - Pressure Settings to start at 4 cm and gradually increase to 14 cm] cyclobenzaprine 10 mg PO BEDTIME PRN 30 days diazepam (Valium) 5 mg PO ONCE famotidine 20 mg PO BEDTIME Humalog KwikPen Insulin (insulin lispro) 1 sliding scale dose subcut QIDACHS NS hydrocortisone 2.5% 1 appl topical BID PRN insulin glargine (Lantus Solostar U-100 Insulin) 10 units (0.1 mL) subcut DAILY insulin syr/ndl U100 half mayuri As directed 2 times per day lancets (FreeStyle Lancets) As directed 3 times a day melatonin 10 mg PO BEDTIME PRN 30 days Novolog FlexPen U-100 Insulin (insulin aspart U-100) Inject DIRECTED (dosed according to sliding scale) 4 times a day with meals and at bedtime PER SLIDING SCALE 125 - 150 2 units Insulin subq 151 - 200 4 units Insulin subq 201 - 250 6 units Insulin subq 251 - 300 8 units Insulin subq 301 - 350 10 units Insulin subq 351 - 400 12 units Insulin subq 30 days NS pen needle, diabetic USE 4 TIMES A DAY [ROLLATOR As directed] semaglutide 1 mg (0.75 mL) subcut QWEEK 12 weeks [SHOWER CHAIR (extra-large/heavy duty) As directed] simethicone (Gas Relief (simethicone)) 125 mg PO BID-QID PRN simvastatin 20 mg PO BEDTIME 90 days sodium,potassium,mag sulfates 17.5-3.13-1.6 gram (Suprep Bowel Prep Kit) DILUTE; as per instructions given by [facility] tramadol 50 mg PO TID PRN 30 days [wedge pillow at night time and for naps ] HPI Comments Details: 09/24/25--History of Present Illness The patient is a 60-year-old female presenting for a new patient evaluation for a renal lesion. An abdominal ultrasound on 12/16/24 initially identified a lesion in the lower pole of the right kidney. A follow-up CT of the abdomen with and without IV contrast on 06/15/25 revealed a 2.8 x 3.9 cm mass in the mid-right kidney with indistinct margins, and a 1.0 cm lesion in the superior pole of the left kidney that was too small to characterize. The patient also has a history of bilateral non-obstructing kidney stones, noted on the recent CT scan, with the largest in the right kidney measuring 3 mm. She reports having had stones a long time ago which passed without intervention. The patient's past medical history is significant for diabetes mellitus, for which she uses insulin, and Morbid Obesity, she has anxiety related to MRI procedures. She has had a prior MRI in an open machine but experienced significant anxiety. Results - Urinalysis (today): Negative for leukocytes and blood. - Abdominal Ultrasound (12/16/24): Showed a lesion in the lower pole of the right kidney. - CT Abdomen with and without IV contrast (06/15/25): - Right kidney: 2.8 x 3.9 cm mass in the mid portion with indistinct margins. -----Left kidney: 1.0 cm lesion in the superior pole, too small to characterize; punctate stones. ----- Bilateral Stones: Several small non-obstructing stones in the right kidney, largest measuring 3 mm. [facility] Medical History Morbid obesity with BMI of 50.0-59.9, adult GERD without esophagitis Primary osteoarthritis of shoulders, bilateral Obstructive sleep apnea Pure hypercholesterolemia Morbid obesity with BMI of 45.0-49.9, adult Anxiety Constipation Vitamin D deficiency Asthma Osteoarthritis Type 2 diabetes mellitus with diabetic chronic kidney disease (Unknown) Diabetes Surgical History Hx of colonoscopy H/O total knee replacement Total knee replacement status History of endometrial ablation History of hand surgery H/O right knee surgery Family History Father Motor vehicle accident Mother Liver cancer Social History Housing: Apartment Alcohol intake: never Patient Tobacco Use Status: Never used Tobacco e-Cigarette/Vaping Use: Never Used Second Hand Smoke Exposure: Yes service: No Current occupational status: disabled Current occupational exposures/hazards: No Cognitive needs: No Hearing needs: No Vision needs: No Review of Systems Const All systems reviewed & are unremarkable except as noted in HPI and below Reports no additional complaints Eyes Reports no additional complaints ENT Reports no additional complaints Card Reports no additional complaints Resp Reports no additional complaints GI Reports no additional complaints Reports as per HPI Musc Reports no additional complaints Skin/Breast Reports system reviewed and no additional complaints, except as documented Neuro Reports no additional complaints Psych Reports no additional complaints Endo Reports no additional complaints Mykel/Lymph Reports no additional complaints Aller/Immun Reports no additional complaints Physical Exam Const General: cooperative, healthy appearing and no acute distress Nutritional Appearance: overweight Orientation/consciousness: patient oriented x3 HEENT Head: Yes normal to inspection, Yes normocephalic and Yes atraumatic Eyes Conjunctivae: conjunctivae normal Neck Neck: Yes normal visual inspection and Yes trachea midline Chest Chest palpation & inspection: normal inspection of the chest Resp Effort & Inspection: normal respiratory effort GI Inspection: Yes normal to inspection Neuro General: patient oriented x3 Psych Appearance: grossly normal Results Reviewed Results Reviewed: Date of Service: 06/15/25 Reason for Exam: N28.89 - Other specified disorders of kidney and ureter EXAMINATION: CT ABDOMEN WITHOUT AND WITH CONTRAST CLINICAL INFORMATION: N28.89 - Other specified disorders of kidney and ureter , vascularized mass in the mid right kidney on ultrasound COMPARISON: Abdomen ultrasound December 16, 2024 TECHNIQUE: Contiguous axial thin section helical images of the abdomen were performed before and after the administration of IV contrast 85 mL of Omnipaque 350 intravenous contrast. The data set was reformatted in the coronal and sagittal planes and reviewed on an independent workstation. This CT examination was performed using dose optimization techniques as appropriate, variously including the following: *Automated exposure control *Adjustment of mA and/or kV according to patient size (this includes techniques or standardized protocols for targeted exams where dose is matched to indication/reason for exam; i.e. extremities or head) *Use of iterative reconstruction technique DLP: 1103 mGY*cm FINDINGS: LUNG BASES: Clear LIVER, GALLBLADDER, AND BILIARY TREE: The liver is homogeneous. Gallbladder is within normal. There is no biliary ductal dilation. PANCREAS: Unremarkable SPLEEN: Unremarkable ADRENAL GLANDS : Unremarkable KIDNEYS: There is malrotation of the right kidney. The long axis is oriented anterior to posterior. On prior ultrasound, there is a hypoechoic mass in the mid right kidney with blood flow on color Doppler measuring 2.8 x 3.0 cm. On the current study, there is a subtle lesion in the mid right kidney that is slightly heterogeneous but nearly isointense to renal parenchyma both before and after contrast. There are a few likely punctate calcifications. Margins are very indistinct and it measures approximately 2.8 x 3.9 cm (transverse by AP). There are several small renal stones in the right kidney not resulting in obstruction. The largest measures 3 mm and is centrally located. 2 punctate stones are present in the left kidney measuring 2-3 mm. There is a 1.0 cm lesion in the superior pole. The lesion is not clearly visible on the unenhanced exam. On the enhanced exam, there is suspicion of an enhancing mural nodule (axial CT #5 image 290/436). However, the lesion is very small and this could be related to volume averaging. BOWEL LOOPS: Visualized bowel is unremarkable. LYMPH NODES: Normal. VASCULAR: Minimal multifocal atherosclerotic ossifications. BONES: Bridging osteophytes are present in the anterior lower thoracic spine. IMPRESSION: There is a mass in the mid right kidney that was much more evident on prior ultrasound. The lesion is very ill-defined on CT and demonstrates enhancement concerning for renal cell carcinoma. There is a 1 cm lesion in the superior left kidney that is too small to characterize. There is question of an enhancing mural nodule versus volume averaging. Bosniak IIF. Follow-up CT or MRI abdomen without and with IV contrast in 6 months, again in 12 months, then annual CT until 5 years. Bilateral nonobstructing kidney stones. Date of Service: 12/16/24 EXAMINATION: US ABDOMEN COMPLETE CLINICAL INFORMATION: Epigastric pain. COMPARISON: None available. TECHNIQUE: Real-time imaging of the abdominal viscera. FINDINGS: PANCREAS: Visualized portions are unremarkable. ABDOMINAL AORTA: The proximal, mid, and distal segments are normal in caliber. INFERIOR VENA CAVA: Visualized portions are normal. LIVER: The liver is normal in size. The liver contour is normal. Parenchymal echogenicity is increased. No focal hepatic lesion. There is no intrahepatic biliary duct dilatation seen. GALLBLADDER: The gallbladder is physiologically distended. Multiple impacted gallstones are present. No evidence of gallbladder wall thickening or pericholecystic fluid. COMMON BILE DUCT: Normal in caliber measuring 0.4 cm in diameter. RIGHT KIDNEY: No hydronephrosis. No renal calculi or focal parenchymal lesions. The kidney measures 11.3 cm in maximum dimension. There is an hypoechoic mass midpole measuring 3.0 x 2.8 x 3.1 cm LEFT KIDNEY: No hydronephrosis. No renal calculi or focal parenchymal lesions. The kidney measures 10.4 cm cm in maximum dimension. It has a lobulated contour. SPLEEN: The spleen measures 9.1 cm in maximum dimension. FREE FLUID: None. US/US abdomen complete IMPRESSION: Cholelithiasis. No wall thickening. No tenderness. Mildly increased liver echogenicity but no focal lesion seen. Lesion pole right kidney. Recommend further evaluation with CT or MRI without and with contrast.. Assessment & Plan Assessment & Plan (1) Type 2 diabetes mellitus with diabetic chronic kidney disease: Onset Date: Unknown Code(s): E11.22 - Type 2 diabetes mellitus with diabetic chronic kidney disease Category: Medical Qualifiers: Diabetes mellitus care home insulin use: with bus or truck garage mechanic use Chronic kidney disease stage: stage 2 (mild) Qualified Code(s): E11.22 - Type 2 diabetes mellitus with diabetic chronic kidney disease; N18.2 - Chronic kidney disease, stage 2 (mild); Z79.4 - channel layer (current) use of insulin (2) Morbid obesity with BMI of 50.0-59.9, adult: Code(s): E66.01 - Morbid (severe) obesity due to excess calories; Z68.43 - Body mass index [BMI] 50.0-59.9, adult Category: Medical (3) Right kidney mass: Code(s): N28.89 - Other specified disorders of kidney and ureter Category: Medical (4) Renal mass of unknown nature: Code(s): N28.89 - Other specified disorders of kidney and ureter Category: Medical Plan Plan 1. Renal Lesions - The right renal mass is considered potentially worrisome, while the left renal lesion is too small to characterize fully. - Plan to order an MRI of the kidneys to obtain a clearer image of the lesions. - Will consider ordering an open MRI due to the patient's history of anxiety and claustrophobia with closed machines. - If the findings are clearly indicative of cancer, further management options will be discussed. - Imaging will be scheduled after the patient returns from travel in October. - Plan for a follow-up visit after the MRI to discuss the results. 2. Nephrolithiasis - The patient has small, bilateral, non-obstructing kidney stones. - The patient was counseled on the importance of increasing water intake and monitoring dietary sodium. - A diet sheet for kidney stone prevention was provided. - A 24-hour urine collection kit will be sent to the patient's home for further metabolic evaluation. 3. Anxiety Related To Medical Procedure - The patient expressed anxiety and fear regarding MRI procedures. - A prescription for a low dose of Valium will be sent for the patient to take on the morning of the MRI to help with relaxation. Orders: Orders MR abdomen wo/w con Today N28.89 - Other specified disorders of kidney and ureter Medications: New diazepam (Valium) bring to imaging, take 30 minutes prior to MRI 5 mg PO ONCE 1 tab 0RF Patient Instructions: The patient had an opportunity to ask questions regarding treatment plan. The patient expressed understanding and agreement with the above treatment plan. The patient is aware they should contact our office by phone for worsening of their current condition or the appearance of new symptoms. Compliance is encouraged with any medications and followup testing that is ordered. It is a privilege to be allowed the opportunity to participate in the urologic care of your patient. If you have any questions or concerns regarding treatment for the above conditions please do not hesitate to contact me. The office telephone contact is [phone]. This note is constructed in part using voice recognition software. While every effort has been made to ensure accuracy rig builder errors may have been included. Yours sincerely, Jennifer Gustafson MD Scribe Plan - Not visible on output: Patient was informed and verbally consented to the use of an ambient scribe for clinic note documentation during this visit. Coding Level of Care Code New Pt Level 4 (52364) Diagnoses Type 2 diabetes mellitus with stage 2 chronic kidney disease, with long-term current use of insulin E11.22; N18.2; Z79.4 Diabetes mellitus bus or truck garage mechanic insulin use: with bus or truck garage mechanic use Chronic kidney disease stage: stage 2 (mild) Morbid obesity with BMI of 50.0-59.9, adult E66.01; Z68.43 Right kidney mass N28.89 Renal mass of unknown nature N28.89
--- OUTSIDE RECORDS SUMMARY | 2025-09-24 19:50 | XMS_ITS | Clinical Summary ---
Author Organization [address] [place] [address] [address] [place] [address] Phone Care Team Providers Care Coach Name Role Phone Turner Mccormack MD Primary [...] on file Sexual Orientation Not on file Plan of Treatment Upcoming Encounters Date Type Department Care Team ([facility] Contact Info) Description 12/02/2025 3:30 PM EST Consult Bariatric Surgery - [place] [address] [place] [address] Kevin Shay MD [address] [place] [phone] Health Maintenance Due Date Last Done [...] Influencers of Health Screening 04/12/2025 COVID-19 Vaccine ( - 2024-2 6 season) 2025 Influenza Vaccine [...] patient's age to complete this topic Insurance [facility] Member Subscriber Plan / Payer (Ef fective 2021-Present) Name:CHRISTEL SWIFT Relation to Subscriber:Self Name:Christel Swift Payer ID:[id number] Group ID:[id number] Type:Not on file Address: [place] [address] [address] [place] [id number] Care Teams Coach Relationship Specialty Start Date End Date Turner Mccormack MD PCP - General Internal Medicine 04/12/25
== END 2025-09-24 15:23 | disposition home or self-care (01) ==
LOC: HO.HUSH 14:35
PROVIDERS: PCP Internal Medicine; Visit Provider Urology
DX: E11.22 Type 2 diabetes mellitus with diabetic chronic kidney disease (principal); N18.2 Chronic kidney disease, stage 2 (mild); Z79.4 Long term (current) use of insulin; E66.01 Morbid (severe) obesity due to excess calories; Z68.43 Body mass index [BMI] 50.0-59.9, adult; N28.89 Other specified disorders of kidney and ureter; Z13.9 Encounter for screening, unspecified
CPT/HCPCS: 99204

== ENCOUNTER → 2025-09-24 14:34 | Outpatient (BNVA) | payer OTHER, SELFPAY | PROVIDERS: PCP Internal Medicine; Visit Provider Urology | DX: E11.22 Type 2 diabetes mellitus with diabetic chronic kidney disease (principal); N18.4 Chronic kidney disease, stage 4 (severe); E66.01 Morbid (severe) obesity due to excess calories; N28.89 Other specified disorders of kidney and ureter; N20.0 Calculus of kidney; F41.9 Anxiety disorder, unspecified; Z79.4 Long term (current) use of insulin; Z68.43 Body mass index [BMI] 50.0-59.9, adult | CPT/HCPCS: 81003; 99202 ==

== ENCOUNTER 2025-09-29 15:45 | Outpatient (AMB) | payer OTHER, SELFPAY ==
[2025-09-29 15:55] VITALS: BP 186/100; PULSE 86; RESP 18; O2SAT 96
--- NOTE | 2025-09-29 15:55 | MHC.OFFVIS ---
Vital Signs 09/29/25 15:55 Height 5 ft 3 in BMI Reason not done Patient refused/unable BP 186/100 H Blood Pressure Location Lt radial Position Sitting Respiration 18 Pulse 86 Pulse Source Pulse Oximeter Pulse Oximetry (%) 96 Oxygen Delivery Method Room Air Intake Visit Reasons: f/u GERD Allergies aspirin (ASA) Allergy (Unknown, Verified 09/24/25 14:41) RASH ,SWELLING atorvastatin Adverse Reaction (Unknown, Verified 09/24/25 14:41) constipation ibuprofen (Advil) Adverse Reaction (Unknown, Verified 09/24/25 14:41) Unknown HPI Comments Details: 59 y.o F with PMH of who is here for upper GI sx. Reports sensation of discomfort and burning post prandially retrosternally. Sx started almost 4 months ago. Assoc with bloating and belching. No N/V. Sx get worse with laying down. BM are unchanged. No regurgitation. Sx predominantly during evening. no dysphagia or odynophagia. Takes pantoprazole as needed - 1-2 times a week. Of note - pt has also gained significant weight in the last 2 years. BMI 48--> 53 now. Pt also due for colo for screening. [place] 2014 (Dr Blackburn) good prep to cecum. Hemorrhoids. No polyps. 05/18/25: 1. Significantly limited exam due to patient immobility. 2. No evidence of significant hiatus hernia. No gastroesophageal reflux observed during the course of the exam. 3. Prominence of the areae gastricae of the stomach, suggesting gastritis. 06/09/25: Patient here with her . Seated in a wheelchair. Reports good response to symptoms with famotidine. Now only has to take it 2 or 3 times a week, was previously taking every day. No nausea, vomiting, difficulty swallowing. Referral was sent to bariatric that [facility], however patient prefers to follow-up with [facility] bariatric medicine. Seeing Dr. Shay, next appointment is in October In terms of colorectal cancer screening, she is due for colonoscopy. Wanted to defer the discussion to this visit. Is agreeable to colonoscopy. Incidentally noted chart review today was POSITIVE FOBT 2021 (under scanned notes matrix labs). She does not recall being referred for colo at that time. 09/29/25: Here for follow up. No active issues. Was told to book this visit to cont famotidine refills? Otherwise, has colo appt in December. Already has picked up prep. Also meeting with bariatrics in [facility] - Dr Shay, in Oct. Of note- pt with recent finding of R kidney mass. Sees Urology. Plan for open MRI for further characterization. [facility] Medical History Morbid obesity with BMI of 50.0-59.9, adult GERD without esophagitis Primary osteoarthritis of shoulders, bilateral Obstructive sleep apnea Pure hypercholesterolemia Morbid obesity with BMI of 45.0-49.9, adult Anxiety Constipation Vitamin D deficiency Asthma Osteoarthritis Type 2 diabetes mellitus with diabetic chronic kidney disease (Unknown) Diabetes Surgical History Hx of colonoscopy H/O total knee replacement Total knee replacement status History of endometrial ablation History of hand surgery H/O right knee surgery Family History Father Motor vehicle accident Mother Liver cancer Social History Housing: Apartment Alcohol intake: never Patient Tobacco Use Status: Never used Tobacco e-Cigarette/Vaping Use: Never Used Second Hand Smoke Exposure: Yes service: No Current occupational status: disabled Current occupational exposures/hazards: No Cognitive needs: No Hearing needs: No Vision needs: No Review of Systems Const All systems reviewed & are unremarkable except as noted in HPI and below GI Reports no additional complaints Physical Exam Exam Exam: seated in wheelchair obese appearing NAD Vital Signs: Last Vital Signs Pulse 86 09/29/25 15:55 Resp 18 09/29/25 15:55 BP 186/100 H 09/29/25 15:55 Pulse Ox 96 09/29/25 15:55 Oxygen Delivery Method Room Air 09/29/25 15:55 Assessment & Plan Assessment & Plan (1) Acid reflux: Code(s): K21.9 - Gastro-esophageal reflux disease without esophagitis Category: Medical (2) Morbid obesity with BMI of 50.0-59.9, adult: Code(s): E66.01 - Morbid (severe) obesity due to excess calories; Z68.43 - Body mass index [BMI] 50.0-59.9, adult Category: Medical (3) Severe obstructive sleep apnea: Code(s): G47.33 - Obstructive sleep apnea (adult) (pediatric) Category: Medical (4) Colon cancer screening: Code(s): Z12.11 - Encounter for screening for malignant neoplasm of colon Category: Medical (5) Right kidney mass: Code(s): N28.89 - Other specified disorders of kidney and ureter Category: Medical Plan Acid reflux likely secondary to worsening obesity. This has likely compromised her physiological anti-reflux barrier. She also has other comorbidities 2/2 to this including DM, severe MALI, OA, hepatic steatosis. She was advised regarding low impact exercises to help with weight loss. Portion control. Has had good response to famotidine. Has sx < 50% of the time now. No red flags to warrant urgent endoscopy at this time. Needs colo marcelo given positive FOBT 2021 which was not followed up. [facility] booked for December. Reviewed risks of anesthesia given underlying BMI, severe MALI. Cardiology clearance received. Low risk. Needs pre-op EKG. For R renal mass, she is following with Urology and an MRI will be scheduled. Follow-up after colonoscopy Coding Level of Care Code Est Pt Level 3 (01683) Diagnoses Acid reflux K21.9 Morbid obesity with BMI of 50.0-59.9, adult E66.01; Z68.43 Severe obstructive sleep apnea G47.33 Colon cancer screening Z12.11 Right kidney mass N28.89
== END 2025-09-29 16:41 | disposition home or self-care (01) ==
LOC: HO.HGI 15:46
PROVIDERS: PCP Internal Medicine; Visit Provider Internal Medicine
DX: K21.9 Gastro-esophageal reflux disease without esophagitis (principal); E66.01 Morbid (severe) obesity due to excess calories; Z68.43 Body mass index [BMI] 50.0-59.9, adult; N28.89 Other specified disorders of kidney and ureter; G47.33 Obstructive sleep apnea (adult) (pediatric)
CPT/HCPCS: 99213

== ENCOUNTER → 2025-09-29 15:45 | Outpatient (BNVA) | payer OTHER, SELFPAY | PROVIDERS: PCP Internal Medicine; Visit Provider Internal Medicine | DX: K21.9 Gastro-esophageal reflux disease without esophagitis (principal); G47.33 Obstructive sleep apnea (adult) (pediatric); N28.89 Other specified disorders of kidney and ureter; E66.01 Morbid (severe) obesity due to excess calories; Z68.43 Body mass index [BMI] 50.0-59.9, adult; Z12.11 Encounter for screening for malignant neoplasm of colon | CPT/HCPCS: 99212 ==